=== PATIENT | female | born 1940 | race Caucasian/White ===

== ENCOUNTER → 2017-09-06 12:03 | Outpatient (CLI) | payer MEDICARE, OTHER, SELFPAY ==
--- NOTE | 2017-09-06 | CYSPIN_PTH ---
PATIENT: JOB RUGGIERO LOC: [facility] U#:[id number] AGE/SX: 84/F ROOM: RE09/06/[address]: Dr. Ernie Robles MD : 1940 BED: DIS: SPEC #: [id number] RECD: 09/06/17 11:11 STATUS: NITIN LESLEY #: [id number] NIA: 09/06/17 00:[address]: Ernie Robles DEPT: CYTOLOGY RECD BY: Rodger Gonzales Tissues: Urine Procedures: Pap Stain (control) Special Stain Group II Cytospin Fluid HEADER OPERATION: Not noted PRE-OP DIAGNOSIS: History of bladder CA TISSUE SUBMITTED: Urine for cytology DIAGNOSIS CYTOLOGY Urine for cytology (cytospin): Rare cluster of atypical urothelial cells present. See comment. AM:caroline 09/07/17 COMMENT Rare cluster of atypical urothelial cells are identified. The majority of the specimen consists of squamous epithelial cells. 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 CYTOLOGY STUDY Slides are reviewed. CYTOLOGY GROSS Received is 10 ml of gold cloudy fluid labeled with the patient's name and and designated per the requisition as urine. Submitted for cytology preparation. / 09/06/17 TC:? CPT: 77241
[2017-09-06 12:06] LABS: Cytology, Body Fluid / CSF SEE PATHOLOGY REPORT
== END ==
PROVIDERS: Visit Provider Urology
DX: Z85.51 Personal history of malignant neoplasm of bladder (principal)
CPT/HCPCS: 88108; 88313

== ENCOUNTER → 2018-04-19 09:51 | Outpatient (CLI) | payer MEDICARE, OTHER, SELFPAY ==
[2018-04-19 12:08] LABS: Absolute Lymphocyte Count 1.42 X10^3/ul (0.83-4.51); Absolute Neutrophil Count 4.5 X10^3/uL (2.0-7.7); Basophil# 0.04 X10^3/uL; Basophil% 0.6 % (0-1); Eosinophil# 0.31 X10^3/uL; Eosinophils% 4.5 % (0-5); Hematocrit 40.6 % (37-47); Hemoglobin 13.3 g/dl (12.0-15.0); Lymphocyte # 1.42 X10^3/ul (4.0); Lymphocyte % 20.8 % (19-41); Mean Corp Hgb Conc 32.8 g/gl (32-36); Mean Corpuscular Hgb 29.2 pg (27.0-32.0); Mean Platelet Vol. 10.8 fl (6.2-12.0); Monocyte# 0.56 X10^3/uL; Monocyte% 8.2 % (0-10); Neutrophil # 4.48 X10^3/uL (2.7-7.7); Neutrophil % 65.8 % (47-70); Platelet Count 350 K/mm3 (150-450); RBC Distribution Width CV 13.6 % (11.6-14.6); RBC Distribution Width SD 43.9 fl (35.1-43.9); Red Blood Count 4.56 M/mm3 (4.2-5.4); White Blood Count 6.8 K/mm3 (4.4-11.0)
[2018-04-19 12:14] LABS: POSITIVE COUNT NO; POSITIVE DIFFERENTIAL NO; POSITIVE MORPHOLOGY NO
[2018-04-19 12:18] LABS: ALB/GLOB Ratio 0.8 RATIO (0.9-2.4); AST(SGOT) 18 U/L (15-37); Alanine Aminotransfer ALT/SGPT 15 U/L (13-56); Albumin, Serum 3.6 g/dL (3.2-5.0); Alkaline Phosphatase 89 U/L (45-117); Anion Gap 9 (5-15); BUN 18 mg/dL (7-18); Calcium,Total 9.1 mg/dL (8.5-10.1); Chloride 105 mmol/L (98-107); Creatinine, Serum 1.06 mg/dL (0.55-1.02); EST Glomerular Filtration Rate 54 mL/min (>60); Est Glom Filt Rate - Afr Amer 65 mL/min (>60); Globulin 4.3 g/dL (2.2-4.2); Glucose 112 mg/dL (74-106); Potassium 3.7 mmol/L (3.5-5.1); Protein, Total 7.9 g/dL (6.4-8.2); Sodium Level 142 mmol/L (136-145); T4 Free Direct 0.92 ng/dL (0.76-1.46); Thyroid Stim Hormone (TSH) 3.64 uIU/mL (0.358-3.74)
== END ==
PROVIDERS: Family Provider Family Medicine; PCP Family Medicine; Visit Provider Family Medicine
DX: E11.9 Type 2 diabetes mellitus without complications (principal); E03.9 Hypothyroidism, unspecified; I10 Essential (primary) hypertension
CPT/HCPCS: 36415; 80053; 84439; 84443; 85025

== ENCOUNTER 2018-05-30 08:15 | Day surgery (SDC) | payer MEDICARE, OTHER, SELFPAY ==
[2018-05-30] VITALS (7 sets, daily range): BP systolic 120–142; BP diastolic 67–98; PULSE 89–101; RESP 16; TEMP 36.3–36.8; O2SAT 96–100; BMI 31.8
[2018-05-30 09:11] LABS: Bedside Glucose 110 mg/dL (70-110)
--- NOTE | 2018-05-30 09:30 | COLBX_PTH ---
PATIENT: JOB RUGGIERO LOC: [facility] U#:[id number] AGE/SX: 77/F ROOM: RE05/30/[address]: Dr. Parmjit Peoples MD : 1940 BED: DIS: 05/30/2018 SPEC #: [id number] RECD: 05/30/18 12:22 STATUS: NITIN LESLEY #: [id number] NIA: 05/30/18 09:[address]: Parmjit Peoples DEPT: SURGICAL PATHOLOGY RECD BY: Mulugeta Crenshaw ENTERED: 05/30/18 13:42 SP TYPE: COLON BX OTHR DR: Dr. Jason Morton MD Tissues: Ascending colon Procedures: Surgery Specimen Level IV HEADER OPERATION: Colonoscopy (MOD) PRE-OP DIAGNOSIS: Screening TISSUE SUBMITTED: Proximal ascending colon polyp biopsy MICROSCOPIC DIAGNOSIS Proximal ascending colon polyp, biopsy: Tubular adenoma. SJ:caroline 05/31/18 MICROSCOPIC DESCRIPTION Slides are reviewed. GROSS DESCRIPTION Received in fixative is one container labeled with the patient's name and designated proximal ascending polyp biopsy. The specimen consists of one irregular fragment of light bryant soft tissue that measures 0.3 x 0.3 x 0.1 cm. The specimen is totally submitted in one cassette. / SJ:caroline 05/30/18 TC:1 CPT: 65697
--- NOTE | 2018-05-30 10:09 | PCM.HP.STD ---
Problem List (1) Screening for intestinal cancer Status: Acute History of Present Illness Date of Admission: 05/30/18 The patient is a 77 year old F screening for intestinal cancer in the form of colonoscopy. She has no acute symptoms. No bright red blood per rectum or melena. No abdominal pain. No personal or family history of colon cancer or colon polyps. She otherwise enjoys good health. Past Medical History Allergies No Known Allergies Allergy (Verified 05/24/18 15:15) Home Medications: Ambulatory Orders Medication Instructions Recorded Amlodipine Besylate [Norvasc] 5 mg PO DAILY 05/24/18 Calcium Carb/Mag Ox/Zinc Sulf 1 each PO DAILY 05/24/18 [Ugisgdw-Pmafznmoa-Oine Tablet] Cyanocobalamin [Vitamin B12] 1,000 mcg PO DAILY@0800 05/24/18 Duloxetine Hcl [Cymbalta] 80 mg PO DAILY 05/24/18 Hydrochlorothiazide [Hctz] 25 mg PO DAILY 05/24/18 Levothyroxine Sodium 50 mcg PO DAILY 05/24/18 Oxybutynin [Ditropan] 5 mg PO DAILY 05/24/18 Vit C/E/Zn/Coppr/Lutein/Zeaxan 1 each PO BID 05/24/18 [Preservision Areds 2 Softgel] Smoking Status: Never smoker Tobacco Use: Non-smoker Review of Systems Constitutional: Denies: Anorexia HEENT: Denies: Difficulty Swallowing Cardiovascular: Denies: Chest Pain Respiratory: Denies: Cough Gastrointestinal: Denies: Abdominal Pain, Hematochezia, Melena Neurological: Denies: Balance problems Psychiatric: Denies: Anxiety Endocrine: Denies: Change in Body Habitus VTE Information - Inpt Only VTE Present on Admission: No Patient Problems: Active and Suspected Problems Screening for intestinal cancer (Acute) - Physical Exam General: Alert, Oriented x3, Cooperative, No apparent distress Oral: Moist Mucosa Neck: Supple Lungs: Clear to auscultation Cardiovascular: Regular rate, Regular Rhythm Abdomen: Bowel Sounds Present, Soft, Non Tender Extremities: No clubbing Vital Signs Temp Pulse Resp BP Pulse Ox 97.7 F L 101 H 16 120/88 H 96 05/30/18 08:31 05/30/18 08:31 05/30/18 08:31 05/30/18 08:31 05/30/18 08:31 Weight: 200 lb Body Mass Index (BMI) 31.8 POC Glucose 05/30/18 08:37 POC Glucose 110 Assessment/Plan All Active Problems Screening for intestinal cancer (Acute) I am recommending a screening colonoscopy. She is aware of the technique, benefits, risks and alternatives. She presents via our open Access program. We will proceed as noted. Parmjit Peoples M.D., F.A.C.S.
--- NOTE | 2018-05-30 10:45 | OP.ENDO_ITS ---
Patient Name: Radha Bermudez Procedure Date: 05/30/2018 10:05 AM Date of : 1940 Age: 77 Procedure: Colonoscopy Indications: Screening for colorectal malignant neoplasm Providers: Parmjit Peoples MD Referring MD: Parmjit Peoples MD Medicines: Midazolam 2.5 mg IV, Meperidine 75 mg IV Patient Profile: Last Colonoscopy: more than 10 years ago. Complications: No immediate complications. Procedure: Pre-Anesthesia Assessment: - Prior to the procedure, a History and Physical was performed, and patient medications and allergies were reviewed. The patient's tolerance of previous anesthesia was also reviewed. The risks and benefits of the procedure and the sedation options and risks were discussed with the patient. All questions were answered, and informed consent was obtained. Prior Anticoagulants: The patient has taken no previous anticoagulant or antiplatelet agents. ASA Grade Assessment: II - A patient with mild systemic disease. After reviewing the risks and benefits, the patient was deemed in satisfactory condition to undergo the procedure. After I obtained informed consent, the scope was passed under direct vision. Throughout the procedure, the patient's blood pressure, pulse, and oxygen saturations were monitored continuously. The pediatric colonoscope was introduced through the anus and advanced to the cecum, identified by appendiceal orifice and ileocecal valve. The colonoscopy was performed with moderate difficulty due to a tortuous colon. Successful completion of the procedure was aided by increasing the dose of sedation medication, changing the patient to a supine position and using manual pressure. The patient tolerated the procedure well. The quality of the bowel preparation was fair. The ileocecal valve was photographed. Moderate Sedation: Moderate (conscious) sedation was personally administered by the endoscopist. The following parameters were monitored: oxygen saturation, heart rate, blood pressure, and response to care. Total physician intraservice time was 15 minutes. Scope In: 10:19:22 AM Scope Withdrawal Time 0 hours 6 minutes 5 seconds Scope Out: 10:40:13 AM Total Procedure Duration Time 0 hours 20 minutes 51 seconds Findings: Hemorrhoids were found on perianal exam. Multiple diverticula were found in the sigmoid colon and descending colon. A 3 mm polyp was found in the proximal ascending colon. The polyp was sessile. The polyp was removed with a cold biopsy forceps. Resection and retrieval were complete. Impression: - Preparation of the colon was fair. - Hemorrhoids found on perianal exam. - Diverticulosis in the sigmoid colon and in the descending colon. - One 3 mm polyp in the proximal ascending colon, removed with a cold biopsy forceps. Resected and retrieved. Recommendation: - Repeat colonoscopy in 5 years for surveillance. - Telephone my office for pathology results in 1 week. - Resume previous diet. - Continue present medications. Procedure Code(s): --- Professional --- 04559, Colonoscopy, flexible; with biopsy, single or multiple 54008, 59, Moderate sedation services provided by the same physician or other qualified health health care recruiter performing the diagnostic or therapeutic service that the sedation supports, requiring the presence of an independent trained observer to assist in the monitoring of the patient's level of consciousness and physiological status; initial 15 minutes of intraservice time, patient age 5 years or older Diagnosis Code(s): --- Professional --- Z12.11, Encounter for screening for malignant neoplasm of colon K64.9, Unspecified hemorrhoids D12.2, Benign neoplasm of ascending colon K57.30, Diverticulosis of large intestine without perforation or abscess without bleeding CPT copyright 2017 [employer]. All rights reserved. The codes documented in this report are preliminary and upon explosives worker review may be revised to meet current compliance requirements. Parmjit Peoples MD 05/30/2018 10:45:00 AM This report has been signed electronically. Number of Addenda: 0 Note Initiated On: 05/30/2018 10:05 AM
--- OUTSIDE RECORDS SUMMARY | 2018-07-11 20:41 | XMS RPT_ITS ---
:1940 Author Organization OHIP Care Team Providers Name Role Phone Ernie Robles Attending Unavailable Ernie Robles Referring Unavailable Primay Care Physicia, No Primary Care Unavailable Jason Morton Attending Unavailable Jason Morton Primary Care Unavailable Nurse, Standard Attending Unavailable Jason Morton Referring Unavailable Parmjit Peoples Attending Unavailable Jason Morton Primary Care Unavailable Parmjit Peoples Referring Unavailable Jason Morton Attending Unavailable Jason Morton Primary Care Unavailable Parmjit Peoples Attending Unavailable Parmjit Peoples Referring Unavailable PROBLEMS PROBLEMS DATE TYPE CONDITION / CODE ATTENDING STATUS SOURCE 06/12/2018 Unknown Z12.11 - Encounter Parmjit Peoples for screening for Community malignant neoplasm Hospital of colon / Repository Z12.11(ICD-10) 06/12/2018 Unknown 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 / Hospital D12.2(ICD-10) Repository 06/12/2018 Unknown K64.9 - Unspecified Parmjit Peoples hemorrhoids / Community K64.9(ICD-10) Hospital Repository 06/12/2018 Unknown K57.30 - Parmjit Peoples Active [place] Diverticulosis of [facility] large intestine Hospital without perforation Repository or abscess without bleeding / K57.30(ICD-10) 04/19/2018 Unknown E11.9 - Type 2 Jason Morton diabetes mellitus Community without Hospital complications / Repository E11.9(ICD-10) 04/19/2018 Unknown I10 - Essential Jason Morton (primary) Community hypertension / Hospital I10(ICD-10) Repository 04/19/2018 Unknown E03.9 - Jason Morton Active Joce Hypothyroidism, [facility] unspecified / Hospital E03.9(ICD-10) Repository PROCEDURES PROCEDURES No Procedure Records FoundRESULTS RESULTS SCREENING MAMM (CAD), Observed: 05/31/2018 Status: F Source: [place] BILAT 8:18 AM [facility] HOSPITAL REPOSITORY [facility] Imaging Services [address] [place] [address] SCREENING MAMM (CAD), BILAT MR#: [id number] Acct: [id number] Name: RADHA BERMUDEZ Rep #: [id number] : 1940 F 77 From: Yogesh Terrazas MD PCP: Jason Morton MD Status: REG CLI Study: SCREENING MAMM (CAD), BILAT Date of Exam: 05/31/18 Exam# [id number] Ordering Dr: Jason Morton MD MAMMOGRAPHY - BILATERAL SCREENING REASON FOR EXAM: Female, 77 years old. Routine annual screening examination. PERTINENT HISTORY: Non-contributory. History of bilateral excisional breast biopsies. TECHNIQUE: Digital bilateral breast dianne (3D mammographic acquisition) in the CC and MLO projections. 2-D mediolateral oblique (MLO) and craniocaudad (CC) views of both breasts were obtained. CAD: Full Field Digital Mammography with Computer Added Detection was performed. COMPARISON: Comparison is made with prior examination dated April 04, 2017 and October 28, 2015. FINDINGS: Breast Composition: The breasts are almost entirely fatty. There are no dominant masses or suspicious calcifications. Stable small benign-appearing bilateral axillary lymph nodes. No other significant abnormalities are identified. There has been no significant change since the prior study. BI/SCREENING MAMM (CAD), BILAT IMPRESSION: Stable bilateral screening mammogram. Yearly follow-up mammogram recommended. (A) ASSESSMENT CATEGORY: BIRADS Category 2: Benign. A letter regarding these results will be sent to the patient by the facility within 30 days. Approximately 10% of breast cancers are not detected by mammography. A normal mammogram should not delay biopsy of a clinically suspicious abnormality. [id number] Electronically Signed: Yogesh Terrazas MD at 10:18 EST Tel [phone], Service support , CC: Jason Morton MD Project Admin: Signed HISTORY AND PHYSICAL Observed: 05/30/2018 Status: F Source: [place] EXAM 4:28 PM [facility] REPOSITORY [facility] Medical Records Department [address] [place] [address] History and Physical 05/30/18 1009 MR#: [id number] Acct: [id number] Name: RADHA BERMUDEZ Rep #: [id number] : 1940 77 From: Parmjit Peoples MD PCP: Jason Morton MD Status: [facility] Y Location: EN Problem List (1) Screening for intestinal cancer Status: Acute History of Present Illness Date of Admission: 05/30/18 The patient is a 77 year old F screening for intestinal cancer in the form of colonoscopy. She has no acute symptoms. No bright red blood per rectum or melena. No abdominal pain. No personal or family history of colon cancer or colon polyps. She otherwise enjoys good health. Past Medical History Allergies No Known Allergies Allergy (Verified 05/24/18 15:15) Home Medications: Ambulatory Orders Medication Instructions Recorded Amlodipine Besylate [Norvasc] 5 mg PO DAILY 05/24/18 Calcium Carb/Mag Ox/Zinc Sulf 1 each PO DAILY 05/24/18 Smoking Status: Never smoker Tobacco Use: Non-smoker Review of Systems Constitutional: Denies: Anorexia HEENT: Denies: Difficulty Swallowing Cardiovascular: Denies: Chest Pain Respiratory: Denies: Cough Gastrointestinal: Denies: Abdominal Pain, Hematochezia, Melena Neurological: Denies: Balance problems Psychiatric: Denies: Anxiety Endocrine: Denies: Change in Body Habitus VTE Information - Inpt Only VTE Present on Admission: No Patient Problems: Active and Suspected Problems Screening for intestinal cancer (Acute) - Physical Exam General: Alert, Oriented x3, Cooperative, No apparent distress Oral: Moist Mucosa Neck: Supple Lungs: Clear to auscultation Cardiovascular: Regular rate, Regular Rhythm Abdomen: Bowel Sounds Present, Soft, Non Tender Extremities: No clubbing Vital Signs Temp Pulse Resp BP Pulse Ox 97.7 F L 101 H 16 120/88 H 96 05/30/18 08:31 05/30/18 08:31 05/30/18 08:31 05/30/18 08:31 05/30/18 08:31 Weight: 200 lb Body Mass Index (BMI) 31.8 POC Glucose POC Glucose 110 Assessment/Plan All Active Problems Screening for intestinal cancer (Acute) I am recommending a screening colonoscopy. She is aware of the technique, benefits, risks and alternatives. She presents via our open Access program. We will proceed as noted. Parmjit Peoples M.D., F.A.C.S. 05/30/18 1628 <Electronically signed by Parmjit Peoples MD> Date Parmjit Peoples MD Cosigner Signature: Date (if applicable) CC: Parmjit Peoples MD; Jason Morton MD Signed OPERATIVE REPORT - Observed: 05/30/2018 Status: F Source: [place] ENDOSCOPY 10:45 AM [facility] REPOSITORY [facility] Medical Records Department [address] [place] [address] Operative Report - Endoscopy MR#: [id number] Acct: [id number] Name: RADHA BERMUDEZ Rep #: [id number] : 1940 77 From: Parmjit Peoples MD PCP: Jason Morton MD Status: REG [facility] Patient Name: Radha Bermudez Procedure Date: 05/30/2018 10:05 AM Date of : 1940 Age: 77 Procedure: Colonoscopy Indications: Screening for colorectal malignant neoplasm Providers: Parmjit Peoples MD Referring MD: Parmjit Peoples MD Medicines: Midazolam 2.5 mg IV, Meperidine 75 mg IV Patient Profile: Last Colonoscopy: more than 10 years ago. Complications: No immediate complications. Procedure: Pre-Anesthesia Assessment: - Prior to the procedure, a History and Physical was performed, and patient medications and allergies were reviewed. The patient's tolerance of previous anesthesia was also reviewed. The risks and benefits of the procedure and the sedation options and risks were discussed with the patient. All questions were answered, and informed consent was obtained. Prior Anticoagulants: The patient has taken no previous anticoagulant or antiplatelet agents. ASA Grade Assessment: II - A patient with mild systemic disease. After reviewing the risks and benefits, the patient was deemed in satisfactory condition to undergo the procedure. After I obtained informed consent, the scope was passed under direct vision. Throughout the procedure, the patient's blood pressure, pulse, and oxygen saturations were monitored continuously. The pediatric colonoscope was introduced through the anus and advanced to the cecum, identified by appendiceal orifice and ileocecal valve. The colonoscopy was performed with moderate difficulty due to a tortuous colon. Successful completion of the procedure was aided by increasing the dose of sedation medication, changing the patient to a supine position and using manual pressure. The patient tolerated the procedure well. The quality of the bowel preparation was fair. The ileocecal valve was photographed. Moderate Sedation: Moderate (conscious) sedation was personally administered by the endoscopist. The following parameters were monitored: oxygen saturation, heart rate, blood pressure, and response to care. Total physician intraservice time was 15 minutes. Scope In: 10:19:22 AM Scope Withdrawal Time 0 hours 6 minutes 5 seconds Scope Out: 10:40:13 AM Total Procedure Duration Time 0 hours 20 minutes 51 seconds Findings: Hemorrhoids were found on perianal exam. Multiple diverticula were found in the sigmoid colon and descending colon. A 3 mm polyp was found in the proximal ascending colon. The polyp was sessile. The polyp was removed with a cold biopsy forceps. Resection and retrieval were complete. Impression: - Preparation of the colon was fair. - Hemorrhoids found on perianal exam. - Diverticulosis in the sigmoid colon and in the descending colon. - One 3 mm polyp in the proximal ascending colon, removed with a cold biopsy forceps. Resected and retrieved. Recommendation: - Repeat colonoscopy in 5 years for surveillance. - Telephone my office for pathology results in 1 week. - Resume previous diet. - Continue present medications. Procedure Code(s): --- Professional --- 01997, Colonoscopy, flexible; with biopsy, single or multiple 79479, 59, Moderate sedation services provided by the same physician or other qualified health daycare manager performing the diagnostic or therapeutic service that the sedation supports, requiring the presence of an independent trained observer to assist in the monitoring of the patient's level of consciousness and physiological status; initial 15 minutes of intraservice time, patient age 5 years or older Diagnosis Code(s): --- Professional --- Z12.11, Encounter for screening for malignant neoplasm of colon K64.9, Unspecified hemorrhoids D12.2, Benign neoplasm of ascending colon K57.30, Diverticulosis of large intestine without perforation or abscess without bleeding CPT copyright 2017 [employer]. All rights reserved. The codes documented in this report are preliminary and upon shoe repair supervisor review may be revised to meet current compliance requirements. Parmjit Peoples MD 05/30/2018 10:45:00 AM This report has been signed electronically. Number of Addenda: 0 Note Initiated On: 05/30/2018 10:05 AM 05/30/18 1045 Date Parmjit Peoples MD Cosigner Signature: Date (if indicated) CC: Parmjit Peoples MD; Jason Morton MD Date Dictated: 05/30/18 1005 Date Transcribed: Project Admin: KIM Signed COLON BIOPSY (CHOOSE Observed: 05/30/2018 Status: F Source: [place] SITE) 9:30 AM [facility] REPOSITORY Patient: RADHA BERMUDEZ : 1940 (77/F) Acct Num: [id number] Phys: Parmjit Peoples MD Unit Num: [id number] Loc: EN Specimen: [id number] Received: 05/30/18 - 1222 Spec Type: COLON BX TISSUES 1 TISSUES: Ascending colon GROSS DESCRIPTION Received in fixative is one container labeled with the patient's name and designated proximal ascending polyp biopsy. The specimen consists of one irregular fragment of light bryant soft tissue that measures 0.3 x 0.3 x 0.1 cm. The specimen is totally submitted in one cassette. / SJ:caroline 05/30/18 TC:1 CPT: 06415 HEADER OPERATION: Colonoscopy (MOD) PRE-OP DIAGNOSIS: Screening TISSUE SUBMITTED: Proximal ascending colon polyp biopsy MICROSCOPIC DESCRIPTION Slides are reviewed. MICROSCOPIC DIAGNOSIS Proximal ascending colon polyp, biopsy: Tubular adenoma. SJ:caroline 05/31/18 Signed Max Doherty 05/31/18 <signature on file> Performed By: #### PCOLBX #### [facility] [address] [facility]. [place], [place], [address] BEDSIDE GLUCOSE Collected: 05/30/2018 Status: F Source: [place] 8:37 AM [facility] REPOSITORY TYPE CODE TESTS RESULT OUT OF RANGE REFERENCE UNITS LAB L501.080 70-110 mg/dL Normal BEDSIDE GLU 110 Result Comment: MANAGEMENT OF PATIENT CARE PER NURSING PROTOCOL Performed By: #### L501.080 #### [facility] Point of Care [address] [place] [address]. [place] [address] CBC W/DIFF, AUTOMATED Collected: 04/19/2018 Status: F Source: [place] 9:53 AM [facility] REPOSITORY TYPE CODE TESTS RESULT OUT OF RANGE REFERENCE UNITS LAB L100.1000 4.4-11.0 K/mm3 Normal WBC 6.8 LAB L100.1200 4.2-5.4 M/mm3 Normal RBC 4.56 LAB L100.1300 12.0-15.0 g/dl Normal HGB 13.3 LAB L100.1400 37-47 % Normal HCT 40.6 LAB L100.1500 81-99 fL Normal MCV 89.0 LAB L100.1600 27.0-32.0 pg Normal MCH 29.2 LAB L100.1700 32-36 g/gl Normal MCHC 32.8 LAB L100.1810 11.6-14.6 % Normal RDW CV 13.6 LAB L100.1820 35.1-43.9 fl Normal RDW SD 43.9 LAB L100.1900 150-450 K/mm3 Normal PLT 350 LAB L100.2000 6.2-12.0 fl Normal MPV 10.8 LAB L100.2100 47-70 % Normal NEUT% 65.8 LAB L100.2200 19-41 % Normal LY% 20.8 LAB L100.2300 0-10 % Normal MONO% 8.2 LAB L100.2400 0-5 % Normal EO% 4.5 LAB L100.2500 0-1 % Normal BASO% 0.6 LAB L100.2550 0.0-0.9 % Normal IM GRAN % 0.100 Result Comment: IG% - Immature Granulocytes (promyelocytes, myelocytes and metamyelocytes) > 1% indicates that a LEFT SHIFT is Present. LAB L100.2620 2.0-7.7 X10 3/uL Normal Absolute Neut 4.5 LAB L100.2720 0.83-4.51 X10 3/ul Normal Absolute Lymph 1.42 Performed By: #### L100.0100 #### [facility] [address] [place], [place], [address] COMPREHENSIVE METABOLIC Collected: 04/19/2018 Status: F Source: [facility] 9:53 AM [facility] REPOSITORY TYPE CODE TESTS RESULT OUT OF RANGE REFERENCE UNITS LAB L501.0100 74-106 mg/dL High GLU 112 Result Comment: Fasting Glucose result from 100 to 125 mg/dL suggests IMPAIRED HOMEOSTASIS per A.D.A. criteria. Please note revised GLUCOSE reference range effective 2017. LAB L501.1000 7-18 mg/dL Normal BUN 18 LAB L501.1100 0.55-1.02 mg/dL High CREAT,SERUM 1.06 Result Comment: The validity of the calculated GFR AND GFRAA in patients over 70 years has not been determined. Clinical correlation is essential. LAB L501.1110 >60 mL/min Low EST GFR 54 Result Comment: Non- GFR Calc LAB L501.1115 >60 mL/min Normal EST GFR - AA 65 Result Comment: GFR Calc LAB L501.1300 10-20 RATIO Normal BUN/CRE 17.0 LAB L501.1500 6.4-8.2 g/dL T Normal PROT 7.9 LAB L501.1800 3.2-5.0 g/dL Normal ALB 3.6 LAB L501.1950 2.2-4.2 g/dL High GLOB 4.3 LAB L501.2000 0.9-2.4 RATIO Low A/G 0.8 LAB L501.2200 8.5-10.1 mg/dL CA Normal 9.1 LAB L501.4100 15-37 U/L Normal AST 18 LAB L501.4305 45-117 U/L Normal ALK P 89 LAB L501.4405 13-56 U/L Normal ALT 15 LAB L501.4600 0.20-1.00 mg/dL T Normal BILI 0.50 LAB L501.5300 136-145 mmol/L NA Normal 142 LAB L501.5600 3.5-5.1 mmol/L K Normal 3.7 LAB L501.5900 98-107 mmol/L CL Normal 105 LAB L501.6100 21.0-32.0 mmol/L Normal CO2 28.0 LAB L501.6200 5-15 Normal GAP 9 Performed By: #### L500.4050, L501.9520, L506.0400 #### [facility] [address] [place], [address] THYROID STIM HORMONE Collected: 04/19/2018 Status: F Source: [place] (TSH) 9:53 AM [facility] REPOSITORY TYPE CODE TESTS RESULT OUT OF RANGE REFERENCE UNITS LAB L501.9520 0.358-3.74 uIU/mL Normal TSH 3.64 Performed By: #### L500.4050, L501.9520, L506.0400 #### [facility] [address] [place], [address] T4 FREE DIRECT Collected: 04/19/2018 Status: F Source: J[place] 9:53 AM [facility] REPOSITORY TYPE CODE TESTS RESULT OUT OF RANGE REFERENCE UNITS LAB L506.0400 0.76-1.46 ng/dL Normal T4 FREE 0.92 DIRECT Performed By: #### L500.4050, L501.9520, L506.0400 #### [facility] [address] [place], [address] CYTOLOGY, BODY FLUID / Collected: 09/06/2017 Status: F Source: [place] CSF 11:11 AM [facility] REPOSITORY Order Comment: Specimen Source: URINE TYPE CODE TESTS RESULT OUT OF RANGE REFERENCE UNITS LAB L350.1000 SEE Normal PATHOLOGY CYTOLOGY,BF REPORT /CSF Result Comment: Specimen submitted to Anatomical Pathology Department for testing. Performed By: #### L350.1000 #### [facility] [address] [place], [address] CYTOSPIN ON FLUID Observed: 09/06/2017 Status: F Source: J[place] 12:00 AM [facility] REPOSITORY Patient: RADHA BERMUDEZ : 1940 (76/F) Acct Num: [id number] Phys: Margaret SANDOVAL,Larry Unit Num: [id number] Loc: LABSPEC Specimen: [id number] Received: 09/06/17 - 1111 Spec Type: CYSPIN FL TISSUES TISSUES: Urine COMMENT Rare cluster of atypical urothelial cells are identified. The majority of the specimen consists of squamous epithelial cells. 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 CYTOLOGY GROSS Received is 10 ml of gold cloudy fluid labeled with the patient's name and and designated per the requisition as urine. Submitted for cytology preparation. / 09/06/17 TC:? CPT: 62923 CYTOLOGY STUDY Slides are reviewed. DIAGNOSIS CYTOLOGY Urine for cytology (cytospin): Rare cluster of atypical urothelial cells present. See comment. AM:caroline 09/07/17 HEADER OPERATION: Not noted PRE-OP DIAGNOSIS: History of bladder CA TISSUE SUBMITTED: Urine for cytology Signed Vick Quinteroih 09/07/17 <signature on file> Performed By: #### PCYSPIN #### [facility] [address] [place], [address] ALLERGIES ALLERGIES DATE TYPE / CODE NAME / CODE REACTION SEVERITY SOURCE 05/24/2018 Drug No Known Unknown [facility] Allergy/4160 Allergies/F00 Hospital 07302(SNOMED 8876894(RXNOR Repository CT) M) ENCOUNTERS ENCOUNTERS ADMIT/DISCHARGE ACCOUNT ADMITTING ENCOUNTER LOCATION SOURCE NUMBER CLASS 05/31/2018 [id number] Ambulatory Joce [place] [address] [facility] ing:OPBI Repository 05/30/2018/ [id number] Ambulatory [place] Joce [address] [facility] ing:ENRoom: Repository AC15 05/30/2018/ [id number] Ambulatory BMSBuilding:B [place] 8 5 MS.[facility] Repository 04/21/2018/ [id number] Ambulatory BMSBuilding:B [place] 8 1 MS.[facility]ly [facility] Repository 04/19/2018 [id number] Ambulatory Joce [place] [address] [facility] ing:BFHLAB Repository 09/06/2017 [id number] Ambulatory Joce Joce [address] [facility] ing:LABSPEC Repository PAYERS PAYERS ENCOUNTER GUARANTOR PAYER SUBSCRIBER SOURCE 05/31/2018 RADHA [place] Primary RADHA [id number] Insurance:MEDICARE KEENERDOB: [facility] [place] PART A BPolicy Number: [id number]-[facility] [id number] Repository 66695Ttt: ([phone]) Date:2018-04-20 [phone] () 05/31/2018 Secondary RADHA [place] Insurance:HUMANA KEENERDOB: Community COMMERCIALPolicy [id number] Hospital Number: Repository [id number] Date:[id number] [address] [place] [id number]: 05/31/2018 Tertiary NOT GIVENUNK [place] Insurance:SELF PAY [facility]: Effective Repository Date:2018-04-20 05/30/2018 RADHA J Primary RADHA J [place] [id number] Insurance:MEDICARE KEENERDOB: Community [place] PART A BPolicy [place]: [id number] [id number] Repository [address]Svx: ([phone]) Date:2018-04-21 [phone] () 05/30/2018 Secondary RADHA J [place] Insurance:HUMANA KEENERDOB: Community COMMERCIALPolicy [id number] Hospital Number: Repository [id number] Date:2125-79-03ZR [address] [place] [phone]: 05/30/2018 Tertiary NOT GIVENUNK [place] Insurance:SELF PAY [facility] Number: Effective Repository Date:2018-04-21 05/30/2018 RADHA J Primary RADHA J [place] [id number] Insurance:MEDICARE KEENERDOB: Community [place] PART A BPolicy [place]: [id number] [id number] Repository [address]Nia: ([phone]) Date:2018-04-21 [phone] () 05/30/2018 Secondary RADHA J [place] Insurance:HUMANA KEENERDOB: Community COMMERCIALPolicy [id number] Hospital Number: Repository [id number] Date:4764-97-73FT [address] [place] [address]YK: 05/30/2018 Tertiary NOT GIVENUNK [place] Insurance:SELF PAY [facility] Hospital Number: Effective Repository Date:2018-05-30 04/21/2018 RADHA J Primary RADHA J [place] [id number] Insurance:MEDICARE KEENERDOB: Community [place] PART A BPolicy Number: [id number], [place] [id number] Repository [address]Dif: ([phone]) Date:2018-04-21 [phone] () 04/21/2018 Secondary RADHA J [place] Insurance:HUMANA KEENERDOB: Community COMMERCIALPolicy [id number] Hospital Number: Repository [id number] Date:[id number] [address]BJ: 04/21/2018 Tertiary NOT GIVENUNK [place] Insurance:SELF PAY [facility] Number: Effective Repository Date:2018-04-21 04/19/2018 RADHA J Primary RADHA J [place] [id number] Insurance:MEDICARE KEENERDOB: Community [place] PART A BPolicy Number: [id number], [place] [id number] Repository [address]Teg: ([phone]) Date:2018-04-19 [phone] () 04/19/2018 Secondary RADHA J [place] Insurance:HUMANA KEENERDOB: Community COMMERCIALPolicy [id number] Hospital Number: Repository [id number] Date:[id number] [address]LT: 04/19/2018 Tertiary NOT GIVENUNK [place] Insurance:SELF PAY [facility] Hospital Number: Effective Repository Date:2018-04-19 09/06/2017 Tobi Medrano Primary RADHA J [place] [id number] Insurance:MEDICARE KEENERDOB: Community [place] PART A BPolicy [place]: [id number] [id number] Repository [address]Opq: ([phone]) Date:2017-09-06 [phone] () 09/06/2017 Secondary RADHA J [place] Insurance:HUMANA KEENERDOB: Community COMMERCIALPolicy [id number] Hospital Number: Repository [id number] Date:[id number] [address]ED: 09/06/2017 Tertiary NOT GIVENUNK [place] Insurance:SELF PAY [facility] Effective Repository Date:2017-09-06
== END 2018-05-30 11:27 | disposition home or self-care (01) ==
LOC: EN 08:16 → AC 08:18
PROVIDERS: Family Provider Family Medicine; PCP Family Medicine; Referring Provider Surgery; Visit Provider Surgery
PROC: 0DJD8ZZ Inspection of Lower Intestinal Tract, Via Natural or Artificial Opening Endoscopic (ICD-10-PCS; CPT 45378; principal; 2018-05-30 09:25)
DX: Z12.11 Encounter for screening for malignant neoplasm of colon (principal); D12.2 Benign neoplasm of ascending colon; K57.30 Diverticulosis of large intestine without perforation or abscess without bleeding; K64.9 Unspecified hemorrhoids; K56.2 Volvulus; Z79.899 Other long term (current) drug therapy
CPT/HCPCS: 45380; 82962; 88305; 99152; 99153; J7120

== ENCOUNTER → 2018-05-31 08:14 | Outpatient (CLI) | payer MEDICARE, OTHER, SELFPAY ==
[2018-05-30 08:31] VITALS: BMI 31.8
--- NOTE | 2018-05-31 08:18 | BI_ITS ---
MAMMOGRAPHY - BILATERAL SCREENING REASON FOR EXAM: Female, 77 years old. Routine annual screening examination. PERTINENT HISTORY: Non-contributory. History of bilateral excisional breast biopsies. TECHNIQUE: Digital bilateral breast dianne (3D mammographic acquisition) in the CC and MLO projections. 2-D mediolateral oblique (MLO) and craniocaudad (CC) views of both breasts were obtained. CAD: Full Field Digital Mammography with Computer Added Detection was performed. COMPARISON: Comparison is made with prior examination dated April 04, 2017 and October 28, 2015. FINDINGS: Breast Composition: The breasts are almost entirely fatty. There are no dominant masses or suspicious calcifications. Stable small benign-appearing bilateral axillary lymph nodes. No other significant abnormalities are identified. There has been no significant change since the prior study. BI/SCREENING MAMM (CAD), BILAT IMPRESSION: Stable bilateral screening mammogram. Yearly follow-up mammogram recommended. (A) ASSESSMENT CATEGORY: BIRADS Category 2: Benign. A letter regarding these results will be sent to the patient by the facility within 30 days. Approximately 10% of breast cancers are not detected by mammography. A normal mammogram should not delay biopsy of a clinically suspicious abnormality. [id number] Electronically Signed: Yogseh Terrazas MD at 10:18 EST Tel [phone], Service support ,
--- OUTSIDE RECORDS SUMMARY | 2018-07-26 13:20 | XMS RPT_ITS ---
[...] - Parmjit Peoples Active Joce Diverticulosis of [facility] large intestine Hospital without perforation Repository or abscess without bleeding / K57.30(ICD-10) 04/19/2018 Unknown E11.9 - Type 2 Jason Morton diabetes mellitus Community without Hospital complications / Repository E11.9(ICD-10) 04/19/2018 Unknown I10 - Essential Jason Morton (primary) Community hypertension / Hospital I10(ICD-10) Repository 04/19/2018 Unknown E03.9 - Jason Morton Active Joce Hypothyroidism, [facility] unspecified / Hospital E03.9(ICD-10) Repository PROCEDURES PROCEDURES No Procedure Records FoundRESULTS RESULTS SCREENING MAMM (CAD), Observed: 05/31/2018 Status: F Source: JOCE BILAT 8:18 AM [facility] REPOSITORY [facility] Imaging Services [address] [place] [address] SCREENING MAMM (CAD), BILAT MR#: [id number] Acct: [id number] Name: RADHA BERMUDEZ Rep #: [id number] : 1940 F 77 From: Yogesh Terrazas MD PCP: Jason Morton MD Status: REG CLI Study: SCREENING MAMM (CAD), BILAT Date of Exam: 05/31/18 Exam# [id number] Ordering Dr: Jason Morton MD MAMMOGRAPHY - [...] delay biopsy of a clinically suspicious abnormality. [id number] Electronically Signed: Yogesh Terrazas MD at 10:18 EST Tel [phone], Service support , CC: Jason Morton MD Family Counselor: Signed HISTORY AND PHYSICAL Observed: 05/30/2018 Status: F Source: [facility] 4:28 PM [facility] REPOSITORY [facility] Medical Records Department [address] [place] [address] History and Physical 05/30/18 1009 MR#: [id number] Acct: [id number] Name: RADHA BERMUDEZ Rep #: [id number] : 1940 77 From: Parmjit Peoples MD PCP: Jason Morton MD Status: [facility] Y Location: EN Problem List (1) Screening [...] REPORT - Observed: 05/30/2018 Status: F Source: [facility] 10:45 AM [facility] REPOSITORY [facility] Medical Records Department [address] [place] [address] Operative Report - Endoscopy MR#: [id number] Acct: [id number] Name: RADHA BERMUDEZ Rep #: [id number] : 1940 77 From: Parmjit Peoples MD PCP: Jason Morton MD Status: REG [facility] Patient Name: Radha Bermudez Procedure Date: 05/30/2018 [...] present medications. Procedure Code(s): --- Professional --- 04766, Colonoscopy, flexible; with biopsy, single or multiple 81231, 59, Moderate sedation services provided by the same physician or other qualified health care partner performing the diagnostic or therapeutic service that [...] or abscess without bleeding CPT copyright 2017 [employer]. All rights reserved. The codes documented in this report are preliminary and upon metal hanging helper review may be revised to meet current compliance requirements. Parmjit Peoples MD 05/30/2018 10:45:00 AM This report has been signed electronically. Number of Addenda: 0 Note Initiated On: 05/30/2018 10:05 AM 05/30/18 1045 Date Parmjit Peoples MD Cosigner Signature: Date (if indicated) CC: Parmjit Peoples MD; Jason Morton MD Date Dictated: 05/30/18 1005 Date Transcribed: Family Counselor: KIM Signed COLON BIOPSY (CHOOSE Observed: 05/30/2018 Status: F Source: [facility] SITE) 9:30 AM [facility] REPOSITORY Patient: RADHA BERMUDEZ : 1940 (77/F) Acct Num: [id number] Phys: Parmjit Peoples MD Unit Num: [id number] Loc: EN Specimen: [id number] Received: 05/30/18 - 1222 Spec Type: COLON [...] one cassette. / SJ:caroline 05/30/18 TC:1 CPT: 01117 HEADER OPERATION: Colonoscopy (MOD) PRE-OP DIAGNOSIS: Screening TISSUE SUBMITTED: Proximal ascending colon polyp biopsy MICROSCOPIC DESCRIPTION Slides are reviewed. MICROSCOPIC DIAGNOSIS Proximal ascending colon polyp, biopsy: Tubular adenoma. SJ:caroline 05/31/18 Signed Max Doherty 05/31/18 <signature on file> Performed By: #### PCOLBX #### [facility] [address] [facility]. [place], [place], [address] BEDSIDE GLUCOSE Collected: 05/30/2018 Status: F Source: [facility] 8:37 AM [facility] REPOSITORY TYPE CODE TESTS RESULT OUT OF RANGE REFERENCE UNITS LAB L501.080 70-110 mg/dL Normal BEDSIDE GLU 110 Result Comment: MANAGEMENT OF PATIENT CARE PER NURSING PROTOCOL Performed By: #### L501.080 #### [facility] Point of Care [address] [place] [address]. [place] [address] CBC W/DIFF, AUTOMATED Collected: 04/19/2018 Status: F Source: [facility] 9:53 AM [facility] REPOSITORY TYPE CODE TESTS RESULT OUT OF [...] Lymph 1.42 Performed By: #### L100.0100 #### [facility] [address] [place], [place], [address] COMPREHENSIVE METABOLIC Collected: 04/19/2018 Status: F Source: [facility] 9:53 AM [facility] REPOSITORY TYPE CODE TESTS RESULT OUT OF [...] Performed By: #### L500.4050, L501.9520, L506.0400 #### [facility] [address] [place], [address] THYROID STIM HORMONE Collected: 04/19/2018 Status: F Source: J[facility]E (TSH) 9:53 AM [facility] REPOSITORY TYPE CODE TESTS RESULT OUT OF RANGE REFERENCE UNITS LAB L501.9520 0.358-3.74 uIU/mL Normal TSH 3.64 Performed By: #### L500.4050, L501.9520, L506.0400 #### [facility] [address] [place], [address] T4 FREE DIRECT Collected: 04/19/2018 Status: F Source: [facility] 9:53 AM [facility] REPOSITORY TYPE CODE TESTS RESULT OUT OF RANGE REFERENCE UNITS LAB L506.0400 0.76-1.46 ng/dL Normal T4 FREE 0.92 DIRECT Performed By: #### L500.4050, L501.9520, L506.0400 #### [facility] [address] [place], [address] CYTOLOGY, BODY FLUID / Collected: 09/06/2017 Status: F Source: [facility] CSF 11:11 AM [facility] REPOSITORY Order Comment: Specimen Source: URINE TYPE CODE TESTS RESULT OUT OF RANGE REFERENCE UNITS LAB L350.1000 SEE Normal PATHOLOGY CYTOLOGY,BF REPORT /CSF Result Comment: Specimen submitted to Anatomical Pathology Department for testing. Performed By: #### L350.1000 #### [facility] [address] [place], [address] CYTOSPIN ON FLUID Observed: 09/06/2017 Status: F Source: J[facility] 12:00 AM [facility] REPOSITORY Patient: RADHA BERMUDEZ : 1940 (76/F) Acct Num: [id number] Phys: Margaret SANDOVAL,Larry Unit Num: [id number] Loc: LABSPEC Specimen: [id number] Received: 09/06/17 - 1111 Spec Type: CYSPIN FL TISSUES TISSUES: Urine COMMENT Rare cluster of atypical urothelial cells are identified. The majority of the specimen consists of squamous epithelial cells. 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 CYTOLOGY GROSS Received is 10 ml of gold cloudy fluid labeled with the patient's name and and designated per the requisition as urine. Submitted for cytology preparation. / 09/06/17 TC:? CPT: 61772 CYTOLOGY STUDY Slides are reviewed. DIAGNOSIS CYTOLOGY Urine for cytology (cytospin): Rare cluster of atypical urothelial cells present. See comment. AM:caroline 09/07/17 HEADER OPERATION: Not noted PRE-OP DIAGNOSIS: History of bladder CA TISSUE SUBMITTED: Urine for cytology Signed Vick Quinteroih 09/07/17 <signature on file> Performed By: #### PCYSPIN #### [facility] [address] [place], [address] ALLERGIES ALLERGIES DATE TYPE / CODE NAME / CODE REACTION SEVERITY SOURCE 05/24/2018 Drug No Known Unknown [facility] Allergy/4160 Allergies/F00 Hospital 42429(SNOMED 5863745(RXNOR Repository CT) M) ENCOUNTERS ENCOUNTERS ADMIT/DISCHARGE ACCOUNT ADMITTING ENCOUNTER LOCATION SOURCE NUMBER CLASS 05/31/2018 [id number] Ambulatory Joce [place] 8 [facility] ing:OPBI Repository 05/30/2018/ [id number] Ambulatory Pisek Joce 8 7 [facility] ing:ENRoom: Repository AC15 05/30/2018/ [id number] Ambulatory BMSBuilding:B Pisek 8 5 [facility] Repository 04/21/2018/ [id number] Ambulatory BMSBuilding:B [place] 8 1 [facility] Repository 04/19/2018 [id number] Ambulatory Joce Joce 3 [facility] ing:BFHLAB Repository 09/06/2017 [id number] Ambulatory Joce Joce 1 [facility] ing:LABSPEC Repository PAYERS PAYERS ENCOUNTER GUARANTOR PAYER SUBSCRIBER SOURCE 05/31/2018 RADHA [place] Primary RADHA [id number] Insurance:MEDICARE KEENERDOB: [facility] PART A BPolicy Number: [id number] mo [id number] Repository [address]Qtl: (330) Date:2018-04-20 [phone] () 05/31/2018 Secondary RADHA [place] Insurance:HUMANA KEENERDOB: Community COMMERCIALPolicy [id number] Hospital Number: Repository [id number] Date:2134-56-60NX [address] [place] [phone]: 05/31/2018 Tertiary NOT GIVENUNK [place] Insurance[facility]LF [facility] Number: Effective Repository Date:2018-04-20 05/30/2018 RADHA J Primary RADHA J [place] [id number] Insurance:MEDICARE KEENERDOB: Community [place] PART A BPolicy [place]: [id number] [id number] Repository [address]Aun: (118) Date:2018-04-21 [phone] () 05/30/2018 Secondary RADHA J [place] Insurance:HUMANA KEENERDOB: Community COMMERCIALPolicy [id number] Hospital Number: Repository [id number] Date:7991-98-12KC [address] [place] [phone]: 05/30/2018 Tertiary NOT GIVENUNK Joce Insurance:SELF PAY [facility] Number: Effective Repository Date:2018-04-21 05/30/2018 RADHA J Primary RADHA J Pisek [id number] Insurance:MEDICARE KEENERDOB: Community [place] PART A BPolicy Number: [id number], [place] [id number] Repository [address]Qou: (905) Date:2018-04-21 [phone] () 05/30/2018 Secondary RADHA J Joce Insurance:HUMANA KEENERDOB: Community COMMERCIALPolicy [id number] Hospital Number: Repository [id number] Date:2847-25-16KQ [address] [place] [address]CS: 05/30/2018 Tertiary NOT GIVENUNK [place] Insurance:SELF PAY [facility] Hospital Number: Effective Repository Date:2018-05-30 04/21/2018 RADHA J Primary RADHA J Joce [id number] Insurance:MEDICARE KEENERDOB: Community [place] PART A BPolicy Number: [id number] [id number] Repository [address]Dtd: (622) Date:2018-04-21 [phone] () 04/21/2018 Secondary RADHA J Joce Insurance:HUMANA KEENERDOB: Community COMMERCIALPolicy [id number] Hospital Number: Repository [id number] Date:[id number] [address]OF: 04/21/2018 Tertiary NOT GIVENUNK Joce Insurance:SELF PAY [facility] Number: Effective Repository Date:2018-04-21 04/19/2018 RADHA J Primary RADHA J Joce [id number] Insurance:MEDICARE KEENERDOB: Community [place] PART A BPolicy Number: [id number] [id number] Repository [address]Gqe: (880) Date:2018-04-19 [phone] () 04/19/2018 Secondary RADHA J Joce Insurance:HUMANA KEENERDOB: Community COMMERCIALPolicy [id number] Hospital Number: Repository [id number] Date:[id number] [address]BZ: 04/19/2018 Tertiary NOT GIVENUNK Joce Insurance:SELF PAY [facility] Number: Effective Repository Date:2018-04-19 09/06/2017 Tobi Medrano Primary RADHA J Joce [id number] Insurance:MEDICARE KEENERDOB: Community [place] PART A BPolicy Number: [id number] [id number] Repository [address]Tnj: (323) Date:2017-09-06 [phone] () 09/06/2017 Secondary RADHA J Joce Insurance:HUMANA KEENERDOB: Community COMMERCIALPolicy [id number] Hospital Number: Repository [id number] Date:[id number] [address]BN: 09/06/2017 Tertiary NOT GIVENUNK Joce Insurance:SELF PAY [facility]: Effective Repository Date:2017-09-06
== END ==
PROVIDERS: Family Provider Family Medicine; PCP Family Medicine; Visit Provider Family Medicine
DX: Z12.31 Encounter for screening mammogram for malignant neoplasm of breast (principal)
CPT/HCPCS: 77063; 77067

== ENCOUNTER → 2019-04-20 10:30 | Outpatient (CLI) | payer MEDICARE, OTHER, SELFPAY ==
[2018-05-30 08:31] VITALS: BMI 31.8
[2019-04-20 13:06] LABS: Absolute Lymphocyte Count 1.48 X10^3/uL (0.83-4.51); Absolute Neutrophil Count 4.5 X10^3/uL (2.0-7.7); Basophil# 0.07 X10^3/uL; Eosinophil# 0.25 X10^3/uL; Eosinophils% 3.6 % (0-5); Hemoglobin 13.5 g/dL (12.0-15.0); Lymphocyte # 1.48 X10^3/ul (4.0); Lymphocyte % 21.2 % (19-41); Mean Corp Hgb Conc 32.1 g/dL (32-36); Mean Corpuscular Hgb 29.2 pg (27.0-32.0); Mean Corpuscular Volume 90.9 fL (81-99); Mean Platelet Vol. 10.7 fl (6.2-12.0); Monocyte# 0.66 X10^3/uL; Monocyte% 9.4 % (0-10); NRBC Flagged by Analyzer 0 % (0-5); Neutrophil # 4.49 X10^3/uL (2.7-7.7); Neutrophil % 64.2 % (47-70); Platelet Count 324 K/mm3 (150-450); RBC Distribution Width CV 13.2 % (11.6-14.6); RBC Distribution Width SD 44.1 fl (35.1-43.9); Red Blood Count 4.62 M/mm3 (4.2-5.4)
[2019-04-20 13:25] LABS: ALB/GLOB Ratio 0.9 RATIO (0.9-2.4); AST(SGOT) 14 U/L (15-37); Alanine Aminotransfer ALT/SGPT 12 U/L (13-56); Albumin, Serum 3.6 g/dL (3.2-5.0); Alkaline Phosphatase 94 U/L (45-117); Anion Gap 5 (5-15); BUN 17 mg/dL (7-18); BUN/Creat Ratio 18.5 RATIO (10-20); Calcium,Total 9.3 mg/dL (8.5-10.1); Chloride 105 mmol/L (98-107); Creatinine, Serum 0.92 mg/dL (0.55-1.02); EST Glomerular Filtration Rate 63 mL/min (>60); Est Glom Filt Rate - Afr Amer 76 mL/min (>60); Globulin 4.1 g/dL (2.2-4.2); Glucose 104 mg/dL (74-106); Potassium 3.6 mmol/L (3.5-5.1); Protein, Total 7.7 g/dL (6.4-8.2); Sodium Level 140 mmol/L (136-145); T4 Free Direct 0.89 ng/dL (0.76-1.46); Thyroid Stim Hormone (TSH) 4.02 uIU/mL (0.358-3.74)
== END ==
PROVIDERS: Family Provider Family Medicine; PCP Family Medicine; Visit Provider Family Medicine
DX: E11.9 Type 2 diabetes mellitus without complications (principal); E03.9 Hypothyroidism, unspecified; I10 Essential (primary) hypertension
CPT/HCPCS: 36415; 80053; 84439; 84443; 85025

== ENCOUNTER → 2019-06-05 15:57 | Outpatient (CLI) | payer MEDICARE, OTHER, SELFPAY ==
[2018-05-30 08:31] VITALS: BMI 31.8
[2019-06-05 17:31] LABS: Thyroid Stim Hormone (TSH) 1.85 uIU/mL (0.358-3.74)
== END ==
PROVIDERS: Family Provider Family Medicine; PCP Family Medicine; Visit Provider Family Medicine
DX: E03.9 Hypothyroidism, unspecified (principal)
CPT/HCPCS: 36415; 84443

== ENCOUNTER → 2019-06-09 08:51 | Outpatient (CLI) | payer MEDICARE, OTHER, SELFPAY ==
[2018-05-30 08:31] VITALS: BMI 31.8
--- NOTE | 2019-06-09 08:55 | BI_ITS ---
MAMMOGRAPHY - BILATERAL SCREENING REASON FOR EXAM: Female, 78 years old. Routine annual screening examination. PERTINENT HISTORY: Non-contributory. History of bilateral excisional breast biopsies. TECHNIQUE: Digital bilateral breast guera (3D mammographic acquisition) in the CC and MLO projections. 2-D mediolateral oblique (MLO) and craniocaudad (CC) views of both breasts were obtained. CAD: Full Field Digital Mammography with Computer Added Detection was performed. COMPARISON: Comparison is made with prior study dated May 31, 2018 and April 04, 2017. FINDINGS: Breast Composition: The breasts are almost entirely fatty. There are no dominant masses or suspicious calcifications. No other significant abnormalities are identified. There has been no significant change since the prior study. BI/SCREEN MAMM (CAD) W/GUERA BILAT IMPRESSION: Stable bilateral screening mammogram. Yearly follow-up mammogram recommended. (A) ASSESSMENT CATEGORY: BIRADS Category 1: Negative. A letter regarding these results will be sent to the patient by the facility within 30 days. Approximately 10% of breast cancers are not detected by mammography. A normal mammogram should not delay biopsy of a clinically suspicious abnormality. [id number] Electronically Signed: Yogesh Terrazas, at 8:48 EST , Service support ,
== END ==
PROVIDERS: Family Provider Family Medicine; PCP Family Medicine; Referring Provider Family Medicine; Visit Provider Family Medicine
DX: Z12.31 Encounter for screening mammogram for malignant neoplasm of breast (principal)
CPT/HCPCS: 77063; 77067

== ENCOUNTER → 2019-09-04 08:55 | Outpatient (CLI) | payer MEDICARE, OTHER, SELFPAY ==
[2019-08-30 10:38] VITALS: BMI 31.8
--- NOTE | 2019-09-04 08:56 | US_ITS ---
STUDY: ULTRASOUND BREAST - LEFT REASON FOR EXAM: Female, 78 years old. Pain in the left breast. TECHNIQUE: Axial and longitudinal images of the LEFT breast were performed with a high resolution ultrasound transducer. # OF IMAGES: 23 COMPARISON: Comparison is made with prior mammogram done earlier today. FINDINGS: LEFT Breast: The retroareolar region was examined by ultrasound. Mild degree of retroareolar ductal dilatation. US/Breast Limited Unilateral IMPRESSION: Mild degree of retroareolar ductal dilatation. Routine annual mammographic follow-up is recommended. ASSESSMENT CATEGORY: BIRADS Category 2: Benign. A letter regarding these results will be sent to the patient by the facility within 30 days. Electronically Signed: Yogesh Terrazas, at 13:49 EST , Service support ,
--- NOTE | 2019-09-04 08:56 | BI_ITS ---
MAMMOGRAPHY - UNILATERAL DIAGNOSTIC: LEFT BREAST REASON FOR EXAM: Female, 78 years old. One-month history of left breast tenderness. PERTINENT HISTORY: Non-contributory. TECHNIQUE: Digital unilateral breast dianne (3D mammographic acquisition) in the CC and MLO projections. 2-D mediolateral oblique (MLO) and craniocaudad (CC) views of both breasts were obtained. CAD: Full Field Digital Mammography with Computer Added Detection was performed. COMPARISON: Comparison is made with prior study dated June 09, 2019 and May 31, 2018. FINDINGS: Breast Composition: The breasts are almost entirely fatty. There are no dominant masses or suspicious calcifications. No other significant abnormalities are identified. There has been no significant change since the prior study. BI/DIAG MAMM W/CAD, UNILAT IMPRESSION: Stable unilateral diagnostic mammogram. With the patient''s history of left breast tenderness, ultrasound correlation is recommended. ASSESSMENT CATEGORY: BIRADS Category 0: Incomplete. Need additional imaging evaluation. A letter regarding these results will be sent to the patient by the facility within 30 days. Approximately 10% of breast cancers are not detected by mammography. A normal mammogram should not delay biopsy of a clinically suspicious abnormality. Electronically Signed: Yogesh Terrazas, at 10:16 EST , Service support ,
== END ==
PROVIDERS: PCP Family Medicine; Referring Provider Nurse Practitioner Women's Health; Visit Provider Nurse Practitioner Women's Health
DX: N64.4 Mastodynia (principal)
CPT/HCPCS: 76642; 77061; 77065; G0279

== ENCOUNTER → 2020-04-22 11:15 | Outpatient (CLI) | payer MEDICARE, OTHER, SELFPAY ==
[2019-08-30 10:38] VITALS: BMI 31.8
--- NOTE | 2020-04-22 09:00 | FLU_PTH ---
PATIENT: JOB RUGGIERO LOC: [facility] U#:[id number] AGE/SX: 84/F ROOM: RE04/22/[address]: Dr. Ernie Robles MD : 1940 BED: DIS: SPEC #: [id number] RECD: 04/22/20 12:00 STATUS: NITIN REAnnamarie #: [id number] NIA: 04/22/20 09:[address]: Ernie Robles DEPT: CYTOLOGY RECD BY: Mulugeta Crenshaw ENTERED: 04/22/20 13:11 SP TYPE: Fluid OTHR DR: Dr. Jason Morton MD Tissues: Urine Procedures: Special Stain Group II Cytospin Fluid HEADER OPERATION: Not noted PRE-OP DIAGNOSIS: Malignant neoplasm of bladder TISSUE SUBMITTED: Urine for cytology DIAGNOSIS CYTOLOGY Urine for cytology (cytospin): Rare atypical urothelial cells, favor reactive. Bacterial colonies. AM:caroline 04/23/20 CYTOLOGY STUDY Slides are reviewed. CYTOLOGY GROSS Received is 20 ml of dark yellow cloudy fluid labeled with the patient's name and and designated per the requisition as urine. Submitted for cytology preparation. / caroline 04/22/20 TC:? CPT: 39767
[2020-04-22 11:33] LABS: Cytology, Body Fluid / CSF SEE PATHOLOGY REPORT
== END ==
PROVIDERS: PCP Family Medicine; Visit Provider Urology
DX: C67.9 Malignant neoplasm of bladder, unspecified (principal)
CPT/HCPCS: 88108; 88313

== ENCOUNTER → 2020-05-02 08:47 | Outpatient (CLI) | payer MEDICARE, OTHER, SELFPAY ==
[2019-08-30 10:38] VITALS: BMI 31.8
--- NOTE | 2020-05-02 08:51 | EKG12_ITS ---
Test Reason : PRE OP Blood Pressure : / mmHG Vent. Rate : 093 BPM Atrial Rate : 093 BPM P-R Int : 178 ms QRS Dur : 140 ms QT Int : 382 ms P-R-T Axes : 048 -04 -22 degrees QTc Int : 474 ms Sinus rhythm with Premature atrial complexes Right bundle branch block Abnormal ECG Confirmed by HERBERTH SANDOVAL, JESÚS ([id number]), clinical editor CANDACE URIAS ([id number]) on 05/07/2020 9:38:08 AM Referred By: Ernie Robles Confirmed By:JESÚS KEVIN MD
== END ==
PROVIDERS: PCP Family Medicine; Referring Provider Urology; Visit Provider Urology
DX: Z11.59 Encounter for screening for other viral diseases (principal)
CPT/HCPCS: 87635; 93005; C9803; U0003

== ENCOUNTER → 2020-05-06 13:59 | Outpatient (CLI) | payer MEDICARE, OTHER, SELFPAY ==
[2019-08-30 10:38] VITALS: BMI 31.8
[2020-05-06 14:59] LABS: Hematocrit 41.8 % (37-47); Hemoglobin 13.3 g/dL (12.0-15.0); Mean Corp Hgb Conc 31.8 g/dL (32-36); Mean Corpuscular Hgb 29.2 pg (27.0-32.0); Mean Corpuscular Volume 91.7 fL (81-99); Mean Platelet Vol. 10.5 fl (6.2-12.0); Platelet Count 351 K/mm3 (150-450); Red Blood Count 4.56 M/mm3 (4.2-5.4); White Blood Count 9.2 K/mm3 (4.4-11.0)
[2020-05-06 15:39] LABS: Anion Gap 6 (5-15); BUN 23 mg/dL (7-18); BUN/Creat Ratio 25.9 RATIO (10-20); Calcium,Total 9.4 mg/dL (8.5-10.1); Chloride 103 mmol/L (98-107); Creatinine, Serum 0.89 mg/dL (0.55-1.02); EST Glomerular Filtration Rate 65 mL/min (>60); Est Glom Filt Rate - Afr Amer 79 mL/min (>60); Glucose 91 mg/dL (74-106); Potassium 3.6 mmol/L (3.5-5.1); Sodium Level 140 mmol/L (136-145)
== END ==
PROVIDERS: PCP Family Medicine; Referring Provider Urology; Visit Provider Urology
DX: E11.8 Type 2 diabetes mellitus with unspecified complications (principal)
CPT/HCPCS: 36415; 80048; 85027

== ENCOUNTER → 2020-05-09 15:04 | Outpatient (CLI) | payer MEDICARE, OTHER, SELFPAY ==
[2019-08-30 10:38] VITALS: BMI 31.8
--- NOTE | 2020-05-09 | BLA_PTH ---
PATIENT: JOB RUGGIERO LOC: [facility] U#:[id number] AGE/SX: 84/F ROOM: RE05/09/[address]: Dr. Ernie Robles MD : 1940 BED: DIS: SPEC #: [id number] RECD: 05/09/20 15:04 STATUS: NITIN LESLEY #: [id number] NIA: 05/09/20 00:[address]: Ernie Robles DEPT: SURGICAL PATHOLOGY RECD BY: Mari Adame ENTERED: 05/12/20 08:24 SP TYPE: BLADDER BX OTHR DR: Dr. Jason Morton MD [facility] Tissues: Urinary bladder, NOS Procedures: Surgery Specimen Level IV HEADER OPERATION: Bladder biopsy PRE-OP DIAGNOSIS: Bladder tumor TISSUE SUBMITTED: Bladder biopsy MICROSCOPIC DIAGNOSIS Bladder, biopsy: Fragments of urothelial mucosa with moderate chronic inflammation. Negative for malignancy. SJ:caroline 05/13/20 COMMENT Correlation with clinical, cystoscopic findings and appropriate follow up are necessary. MICROSCOPIC DESCRIPTION Slides are reviewed. GROSS DESCRIPTION Received in fixative is one container labeled with the patient's name and designated bladder biopsy. The specimen consists of two irregular fragments of bryant soft tissue that in aggregate measure 0.3 x 0.1 x 0.1 cm. The specimen is totally submitted in one cassette. / SJ:caroline 05/12/20 TC:3 CPT: 14657
== END ==
PROVIDERS: PCP Family Medicine; Referring Provider Urology; Visit Provider Urology
DX: D49.4 Neoplasm of unspecified behavior of bladder (principal)
CPT/HCPCS: 88305

== ENCOUNTER → 2020-09-13 07:56 | Outpatient (CLI) | payer MEDICARE, OTHER, SELFPAY ==
[2020-09-10 08:44] VITALS: BMI 31.8
--- NOTE | 2020-09-13 07:58 | CT_ITS ---
CT of the right lower extremity without contrast INDICATION: Knee pain, preop knee arthroplasty, May toe protocol. TECHNIQUE: Multiple thin section axial CT images of the right lower extremity were obtained through the hip joint, knee joint, and ankle joint and filmed in bone windows. Furthermore, multiple sagittal and coronal reconstructions were performed. Dose limiting techniques were utilized. COMPARISON: X-ray 09/10/2020 FINDINGS: No abnormal soft tissue mass, lymphadenopathy, fluid collection. No acute fracture or dislocation. No lytic or blastic lesions. The right hip joint is normal. Examination the knee joint demonstrates severe arthrosis of the medial compartment with joint space narrowing, osteophyte formation, subchondral sclerosis. Mild arthrosis of the lateral and patellofemoral compartments. Examination the ankle joint demonstrates chronic corticated avulsion fractures of the medial lateral malleoli. No arthrosis. IMPRESSION: Severe right knee arthrosis. Electronically Signed: Sunny Jimenez MD at 9:46 EST Tel , Service support , CT/Extremity Lower without Contra
== END ==
PROVIDERS: PCP Family Medicine; Referring Provider Orthopaedic Surgery; Visit Provider Orthopaedic Surgery
DX: M17.11 Unilateral primary osteoarthritis, right knee (principal)
CPT/HCPCS: 73700

== ENCOUNTER 2020-09-30 09:42 | Observation (INO) | payer MEDICARE, OTHER, SELFPAY ==
[2020-09-10 08:44] VITALS: BMI 31.8
--- NOTE | 2020-09-16 09:51 | EKG12_ITS ---
Test Reason : PRE SURGERY Blood Pressure : / mmHG Vent. Rate : 104 BPM Atrial Rate : 104 BPM P-R Int : 174 ms QRS Dur : 138 ms QT Int : 372 ms P-R-T Axes : 031 029 011 degrees QTc Int : 489 ms Sinus tachycardia with Premature atrial complexes Right bundle branch block Abnormal ECG Confirmed by ROSHAN SANDOVAL, GENE ([id number]), editor publications CORRY SALOMON ([id number]) on 09/17/2020 10:05:50 AM Referred By: Duncan Castro Confirmed By:GENE ISLAS MD
--- NOTE | 2020-09-16 09:57 | EKG12_ITS ---
Test Reason : PRE SURGERY Blood Pressure : / mmHG Vent. Rate : 097 BPM Atrial Rate : 097 BPM P-R Int : 178 ms QRS Dur : 140 ms QT Int : 386 ms P-R-T Axes : 054 019 015 degrees QTc Int : 490 ms Normal sinus rhythm Right bundle branch block Abnormal ECG When compared with ECG of 16-SEP-2020 09:57, MANUAL COMPARISON REQUIRED, DATA IS UNCONFIRMED Confirmed by ROSHAN SANDOVAL, GENE ([id number]), clinical editor CORRY SALOMON ([id number]) on 09/19/2020 9:31:51 AM Referred By: Duncan Castro Confirmed By:GENE ISLAS MD
--- NOTE | 2020-09-16 09:57 | EKG12_ITS ---
Test Reason : PRE SURGERY Blood Pressure : / mmHG Vent. Rate : 094 BPM Atrial Rate : 094 BPM P-R Int : 184 ms QRS Dur : 138 ms QT Int : 384 ms P-R-T Axes : 061 016 018 degrees QTc Int : 480 ms Normal sinus rhythm Right bundle branch block Abnormal ECG When compared with ECG of 16-SEP-2020 09:57, MANUAL COMPARISON REQUIRED, DATA IS UNCONFIRMED Confirmed by ROSHAN SANDOVAL, GENE ([id number]), book editor CORRY SALOMON ([id number]) on 09/19/2020 9:33:51 AM Referred By: Duncan Castro Confirmed By:GENE ISLAS MD
[2020-09-16 10:53] LABS: Absolute Lymphocyte Count 1.68 X10^3/uL (0.83-4.51); Absolute Neutrophil Count 3.8 X10^3/uL (2.0-7.7); Basophil# 0.04 X10^3/uL; Basophil% 0.6 % (0-1); Eosinophil# 0.28 X10^3/uL; Eosinophils% 4.4 % (0-5); Hematocrit 40.9 % (37-47); Hemoglobin 13.3 g/dL (12.0-15.0); Lymphocyte # 1.68 X10^3/ul (4.0); Lymphocyte % 26.4 % (19-41); Mean Corp Hgb Conc 32.5 g/dL (32-36); Mean Corpuscular Volume 89.3 fL (81-99); Mean Platelet Vol. 10.5 fl (6.2-12.0); Monocyte# 0.54 X10^3/uL; Monocyte% 8.5 % (0-10); NRBC Flagged by Analyzer 0 % (0-5); Neutrophil % 59.8 % (47-70); Platelet Count 316 K/mm3 (150-450); RBC Distribution Width CV 12.8 % (11.6-14.6); RBC Distribution Width SD 41.6 fl (35.1-43.9); Red Blood Count 4.58 M/mm3 (4.2-5.4); White Blood Count 6.4 K/mm3 (4.4-11.0)
[2020-09-16 11:01] LABS: Prothrombin Time (Protime)PT. 12.7 SECONDS (11.7-14.9)
[2020-09-16 11:02] LABS: Partial Thromboplast Time 32.8 Seconds (24.1-36.2)
[2020-09-16 11:18] LABS: Anion Gap 4 (5-15); BUN 17 mg/dL (7-18); BUN/Creat Ratio 21.1 RATIO (10-20); Calcium,Total 9.2 mg/dL (8.5-10.1); Chloride 105 mmol/L (98-107); Creatinine, Serum 0.81 mg/dL (0.55-1.02); EST Glomerular Filtration Rate 73 mL/min (>60); Est Glom Filt Rate - Afr Amer 88 mL/min (>60); Glucose 99 mg/dL (74-106); Potassium 3.5 mmol/L (3.5-5.1); Sodium Level 139 mmol/L (136-145)
[2020-09-16 11:40] LABS: Magnesium 2.1 mg/dL (1.6-2.6); Thyroid Stim Hormone (TSH) 1.49 uIU/mL (0.358-3.74)
[2020-09-17 08:52] LABS: Fructosamine 243 umol/L (0-285)
[2020-09-30] VITALS (12 sets, daily range): BP systolic 99–137; BP diastolic 52–76; PULSE 90–108; RESP 14–18; TEMP 36.2–37.1; O2SAT 93–100; BMI 30.4; BMI 30.5
[2020-09-30] MEDS: Celecoxib 200 MG Capsule 400 MG PO (06:29)
[2020-09-30] MEDS: Gabapentin 600 MG Tablet PO (06:29)
[2020-09-30] MEDS: Acetaminophen 500 MG Tablet 1000 MG PO ×3 (06:29→22:02)
[2020-09-30] MEDS: Lactated Ringers 1,000 ML 100 ML IV (06:30)
[2020-09-30 06:55] LABS: Bedside Glucose 93 mg/dL (70-110)
[2020-09-30] MEDS: Scopolamine 1mg/72hr Patch 1 PATCH TD (07:00)
--- NOTE | 2020-09-30 07:16 | PCM.HP.BLA ---
History and Physical Date of Admission: 09/30/20 Intake Intake Visit Reasons: right knee Allergies No Known Allergies Allergy (Verified 09/16/20 09:24) [facility] Medical History Osteoarthritis of knees, bilateral (Chronic) Actinic keratosis (Chronic) Bladder cancer (Acute) Depression (Acute) Hypothyroid (Chronic) Hypertension (Chronic) Type 2 diabetes mellitus (Chronic) Surgical History (Updated 09/10/20 @ 08:54 by Bela Cooper) History of carpal tunnel release (Acute) H/O lumpectomy (Resolved) History of bladder surgery (Resolved) S/P oophorectomy (Resolved) Family History (Updated 09/10/20 @ 08:55 by Bela Cooper) Father CVA (cerebral vascular accident) Heart disease Mother Gallbladder cancer Brother CVA (cerebral vascular accident) Social History (Updated 09/19/20 @ 12:[address] Duncan Castro DO) household members: spouse housing: house Smoking Status: Never smoker alcohol intake: never details: occasionally substance use type: does not use caffeine: Yes what type of physical activity do you participate in: none seatbelt use: always do you feel safe at home: Yes additional social history: -Tobi HPI right knee: Details: Parts of this documentation were recorded by a scribe, this documentation accurately reflects the service provided and the decisions made by me, Dr. Duncan Castro DO 09/19/20 0750. JOB RUGGIERO is a 79 year old F here today for right knee IOVERA treatment. SHe is scheduled to undergo a right TKA on 09/30/2020. She continues to have right knee pain and thsi is limiting her ADLS. Denies numbness, tingling or other associated symptoms.Denies any changes since the last visit. ROS Const Denies system reviewed and no additional complaints, except as docu, Denies body aches, Denies chills, Denies fatigue, Denies frequent falls, Denies headache(s), Denies weakness ENT Denies headache(s) Card Denies system reviewed and no additional complaints, except as docu, Denies chest pain, Denies shortness of breath Resp Denies system reviewed and no additional complaints, except as docu, Denies chest congestion, Denies cough, Denies shortness of breath GI Denies system reviewed and no additional complaints, except as docu, Denies abdominal pain, Denies constipation, Denies loose stools, Denies incontinent of stools, Denies nausea, Denies vomiting Denies system reviewed and no additional complaints, except as docu, Denies urinary incontinence Musc Reports system reviewed and no additional complaints, except as docu, Reports joint pain, Denies joint swelling, Denies numbness, Denies radiating pain into limb, Reports stiffness Skin/Breast Denies system reviewed and no additional complaints, except as docu, Denies changing lesions, Denies dry skin, Denies redness, Denies boil, Denies lesions, Denies new lesions, Denies non-healing lesions, Denies itching, Denies rash, Denies skin ulcer, Denies sores, Denies unusual bruising, Denies wounds Neuro No frequent falls, No headache(s), No numbness, No weakness Endo Denies fatigue Ortho Exam General General: Yes no acute distress Neurologic: Yes alert Psychologic: Yes reasonable and appropriate Right Knee Skin/Wound: No erythema, No ecchymosis, No swelling Homans Sign: No Knee ROM: Yes ROM-Extension -20 to 0, No ROM-Flexion 0-140 (118) Examination: Yes Med jt line tenderness Stability: NML: Anterior Drawer, NML: Posterior Drawer, NML: Valgus 0, NML: Valgus 30, NML: Varus 0, NML: Varus 30 KNEE: frail skin no joint effusion 1/4 posterior tibial 1/4 dorsalis pedis Left Knee Skin/Wound: No ecchymosis, No erythema, Yes swelling (mild) Homans Sign: No Knee ROM: Yes ROM-Extension -20 to 0, No ROM-Flexion 0-140 (118) Examination: Yes med jt line tenderness Stability: NML: Anterior Drawer, NML: Kristy, NML: Posterior Drawer, NML: Valgus 0, NML: Valgus 30, NML: Varus 0 KNEE: 2/4 posterior tibial 1/4 dorsalis pedis Office Procedures Iovera Details:: Preoperative diagnosis :right knee pain, OA Postoperative diagnosis: Same Procedure: Cryotherapy with Iovera device to anterior femoral cutaneous nerve and 2 branches of the infrapatellar saphenous nerve III nerves in total Description of procedure: Patient was brought back to the procedure room the operative extremity was identified by both patient and physician. The PIP flexion crease was measured to the midpoint of the patella and this distance was divided in 3 resulting in 10 cm location proximal to the midpoint of the patella. This line was extended medial and lateral to the extent of the edges of the patella. This was our treatment line for the anterior femoral cutaneous nerve. A second treatment line was made 5 cm medial to the inferior pole of the patella and 5 cm distally. The leg was prepped with alcohol and Betadine. Lidocaine with epi was used along the treatment lines. Using the Iovera device treatment lines were treated with 1 minute cycles. Reproduction of paresthesias was monitored in the area of nerve distribution. Once all 3 nerves were treated across the 2 treatment lines patient was cleaned and a light dressing with 4 x 4 and Chang wrap was applied. Patient tolerated the procedure without complication. Assessment & Plan Problems 1. Chronic pain of right knee M25.561; G89.29 Plan Patient educated on the IOVERA procedure and wishes to proceed with IOVERA of the right knee today. Instructed agian on the pre surgical wash and surgical ensure drinks prior to surgery. Instructed to not take any NSAIDs or aspirin 7 days prior to surgery. Follow up 2 weeks post op or sooner if pain, swelling, numbness or associated symptoms, or concerns develop. All questions answered. Patient in agreement of plan. Orders Orders: Iovera Today M25.569 Coding Level of Care Code Off vis,est,level 3 Diagnoses Chronic pain of right knee M25.561; G89.29 ??Chronicity: chronic I have re-examined the patient. There are no clinical changes since date of exam Procedure Criteria Procedure Type: Elective COVID Risk Discussion: The surgeon/proceduralist and patient have discussed in detail the risk of exposure to and/or potential harm posed by the COVID-19 virus with having a surgery/procedure at this time versus the risk of delaying the surgery/procedure. It is not possible to know either the risk of delaying the surgery or procedure or chance of getting an infection with perfect accuracy, but a joint decision was made between the patient and the surgeon/proceduralist to proceed at this time with the scheduled surgery/procedure as indicated on the consent form.
[2020-09-30] MEDS: Cefazolin 2 GM in 0.9% Normal Saline 100 ML IV (07:45)
[2020-09-30] MEDS: dexAMETHasone 10 MG/ML Vial IV (08:00)
[2020-09-30] MEDS: Lactated Ringers 1,000 ML 125 ML IV (09:00)
[2020-09-30] MEDS: Bupivacaine Mpf 0.5% 30 ML VIAL (09:09)
[2020-09-30] MEDS: Triamcinolone Acetonide 40 MG/ML Vial (09:09)
[2020-09-30] MEDS: Epinephrine (1 mg/ml) 1 MG/ML VIAL (09:09)
[2020-09-30] MEDS: 0.9% Normal Saline (Pres. free 10 ML Vial (09:09)
--- NOTE | 2020-09-30 10:13 | OP.PCM_ITS ---
Report of Operation Date of Procedure: 09/30/20 Description of Surgical Findings:: Preoperative diagnosis: right knee DJD Postoperative diagnosis: Same Procedure: right total knee arthroplasty CT guided Robotic Assisted Implant: Sushila triathlon cemented femoral component size 4, press-fit tibial baseplate size 3, cemented asymmetric patella size 35, polyethylene X3 size 9 CS Anesthesia: Spinal with adductor canal block Tourniquet time: 33 minutes at 300 mmHg Complications: None Condition: Stable to PACU Estimated blood loss: 125 cc Indication for procedure: This is a 79-year-old female with long standing degenerative joint disease of the knee flexion contracture and significant varus deformity who has failed conservative treatment and wished to proceed with elective total knee arthroplasty. Risk benefits and alternatives were reviewed including; risk of bleeding, infection, nerve artery and tissue damage, continued pain, postoperative stiffness, venous thromboembolism, need for postoperative rehabilitation, mechanical feel to the knee, and expected postoperative course. The operative CT and templating was performed with component sizing Procedure: The patient was met in the preoperative holding area. The operative extremity was identified by both patient and physician and was marked. Patient was met by anesthesia. An adductor canal block was placed by anesthesia postoperatively the patient was brought back to the operating room on a wheeled cart and transferred to the operating table in the supine position. Anesthesia was started. A well-padded tourniquet was placed on the operative extremity. The patient was prepped and draped in the usual sterile fashion. A timeout was called to ensure the proper patient procedure and extremity were being contemplated. An Esmarch was used to exsanguinate the extremity. The tourniquet was inflated. A 10 blade scalpel was used to make a midline incision down through the skin and subcutaneous tissue. Skin retractors placed. Bovie was used to perform meticulous hemostasis. full-thickness flaps were elevated medial and lateral along the joint capsule. A deep blade scalpel was used to perform a medial parapatellar arthrotomy. The knee was brought to full extension. A Bovie was used to release the soft tissues off the most proximal aspect of the medial tibial plateau, a three-quarter inch curved osteotome was also used for this process. The infrapatellar fat pad was excised. The superior fat pad was excised partially anteriorolateraly and portion the anterioromedial pad was elevated from the femur. At this point our intra- articular femoral array was placed of a 45 degree angle proximal and posterior to the medial epicondyle. Our tibial array was placed greater than 1 hands breath below the incision at a 20 degree angle stab incisions were used for this case were attached and checked with the robotic software. Tourniquet was let down. At this point registration wong were taken throughout the knee as well as checkpoints placed in the femur and tibia once the knee was registered then tensioned the medial and lateral ligaments in extension and 90 degrees of flexion. We then used these numbers to adjust our components within parameters to balance the knee in both flexion and extension once this was done on our monitor we then proceeded with using the robotic arm to make our tibial plateau cut and anterior posterior and chamfer cuts and distal on the femur we then trialed and achieved the desired plan with a well-balanced knee. Lug holes were drilled in the femur the tibia preparation was completed with a fin punch and the patella was prepared by first using a caliper to ensure sufficient bone stock and a patellar reamer to remove the desired amount of bone locals were drilled for an asymmetric poly-. We then brought the knee through range of motion with excellent patellar tracking. We thoroughly irrigated the knee with a trial components were removed a posterior capsular injection with her standard cocktail was performed the aqua Mantis was also used to aid in hemostasis. Betadine rinse was allowed to sit and washed out components were cemented. Aricept rinse was then used followed by several more rate liters of irrigation after it was allowed to sit. Joint capsule was closed with #1 Ethibond [id number] followed by Vicryl in the subcutaneous tissues staple in the skin arrays and checkpoints were removed prior to closure all counts were correct stab incisions were closed with a stable standard dressing in the form of Mepilex for the main incision Xeroform 4 x 4 and Tegaderm over pin site holes. Thigh-high WYATT hose applied over top of dressing. Patient tolerated the procedure well and was directed to PACU in stable condition no intraoperative complications
--- NOTE | 2020-09-30 10:35 | RAD_ITS ---
STUDY: X-RAY - RIGHT KNEE REASON FOR EXAM: Postop right total knee arthroplasty. TECHNIQUE: 2 view(s) of the knee. COMPARISON: CT images 09/13/2020. FINDINGS: There is a right total knee arthroplasty without evidence of complication. There is postoperative gas in the soft tissues and overlying skin soniya. RAD/Knee 1 or 2 Views IMPRESSION: Uncomplicated right total knee arthroplasty. Electronically Signed: Abdoul Méndez MD at 13:55 EDT Tel , Service support ,
[2020-09-30 10:40] LABS: Bedside Glucose 127 mg/dL (70-110)
[2020-09-30] MEDS: Cefazolin 1 GM/50 ML BAG IV ×2 (10:52→18:51)
--- NOTE | 2020-09-30 14:51 | CASEMGMT ---
Social Work Note Per city planner questions, pt has completed HCPOA and LW and provided documents to [facility]. SW reviewed chart, Durable POA and LW on file. SW printed off documents and placed on pt's chart. SW in to speak with pt. Pt's daughter Larissa present in room. SW introduced self and role at [facility]. SW updated pt and Larissa that LW and Durable POA is on file but not HCPOA. Pt started to fall back asleep. Larissa states just to leave information on HCPOA for pt. SW provided pt with HCPOA document. Krupa Dunbar ROPE RIDER, COUNTER TOP ASSEMBLER
[2020-09-30] MEDS: 0.9% NaCl Peripheral Flush Adult/Peds IV (19:01)
[2020-09-30] MEDS: Senna/Docusate Sodium 1 Tablet 2 TABLET PO (22:02)
[2020-10-01] VITALS: BMI 30.5
[2020-10-01] MEDS: Cefazolin 1 GM/50 ML BAG IV (03:51)
[2020-10-01] MEDS: 0.9% NaCl Peripheral Flush Adult/Peds IV ×3 (03:52→08:59)
[2020-10-01 04:00] VITALS: BP 121/68; PULSE 75; RESP 16; TEMP 36.9; O2SAT 93; BMI 30.5
[2020-10-01] MEDS: Acetaminophen 500 MG Tablet 1000 MG PO ×2 (06:13→13:13)
[2020-10-01] MEDS: APIXABAN 2.5 MG TABLET PO (06:15)
[2020-10-01 07:27] VITALS: BP 127/67; PULSE 93; RESP 18; TEMP 36.7; O2SAT 91
--- NOTE | 2020-10-01 07:31 | PN.ORTHO_ITS ---
Subjective: Patient seen and examined this morning. Comfortable without complaints. No fevers chills nausea vomiting shortness of breath or chest pain. - Physical Exam Vitals/I&O's: Vital Signs Temp Pulse Resp BP Pulse Ox 98.1 F 93 18 127/67 H 91 10/01/20 07:27 10/01/20 07:27 10/01/20 07:27 10/01/20 07:27 10/01/20 07:27 Oxygen Flow Rate (L/min) 6 Oxygen Delivery Method Nasal Cannula Weight: 188 lb 11.451 oz Body Mass Index (BMI) 30.4 Finger Stick Blood Glucose 127 Intake and Output for Last 24 Hours 09/29/20 09/30/20 10/01/20 23:59 23:59 23:59 Intake Total 2535.5 / 2535.5 87.75 / 87.75 Output Total 800 / 800 Balance 1735.5 / 1735.5 87.75 / 87.75 General: Alert, Oriented x3, Cooperative, No apparent distress Extremities: - - Right knee dressing with small drop of blood in center of bandage compartments soft neurovascular intact. Microbiology Past 72 Hours 09/29/20 09:00 Interface Orders SARS-CoV-2 Antigen (Rapid) - Final Laboratory Results 09/30/20 10:36: POC Glucose 127 H Current Medications Acetaminophen (Acetaminophen 500 Mg Tablet) 1,000 mg PO Q8 [facility] Last Admin: 10/01/20 06:13 Dose: 1,000 mg Documented by: Apixaban (Apixaban 2.5 Mg Tablet) 2.5 mg PO BID [facility] Last Admin: 10/01/20 06:15 Dose: 2.5 mg Documented by: Hydromorphone HCl (Hydromorphone 0.5 Mg/0.5 Ml Syringe) 0.5 mg IV Q2H PRN PRN PRN Reason: Pain Score 6-10 Sodium Chloride () 250 mls @ 15 mls/hr IV .[id number] PRN PRN Reason: Saline Flush Last Infusion: 10/01/20 06:23 Dose: 0 mls/hr Documented by: Sodium Chloride () 250 mls @ 15 mls/hr IV .[id number] PRN PRN Reason: Additional IVPB Infusion Ketorolac Tromethamine (Ketorolac 15 Mg/Ml Vial) 15 mg IV Q6H PRN PRN PRN Reason: Pain Score 1-5 Stop: 10/02/20 09:43 Ondansetron HCl (Ondansetron 4 Mg/2 Ml Vial) 4 mg IV Q6H PRN PRN PRN Reason: NAUSEA Oxycodone HCl (Oxycodone 5 Mg Tablet) 5 - 10 mg PO Q4H PRN PRN PRN Reason: Pain Score 4-10 Senna/Docusate Sodium (Senna/Docusate Sodium 1 Tablet) 2 tablet PO BID TITO Last Admin: 09/30/20 22:02 Dose: 2 tablet Documented by: Sodium Chloride (0.9% Nacl Peripheral Flush Adult/Peds) 5 - 15 ml IV UD PRN PRN Reason: SALINE FLUSH Last Admin: 10/01/20 06:15 Dose: 10 ml Documented by: Medical Necessity - Tobacco Use Smoking Status: Never smoker Tobacco Use: Non-smoker Assessment/Plan All Active Problems (Last Reviewed 09/10/20 @ 08:53 by Bela Cooper) Bladder cancer (Acute) Depression (Acute) Screening for intestinal cancer (Acute) Postoperative day #1 right total knee arthroplasty DVT prophylaxis SCDs WYATT hose and Eliquis 2.5 mg twice daily for 2 weeks postop PT OT weightbearing as tolerated Patient does live alone and is of elderly age may benefit from rehab prior to returning home we will see how she does with physical therapy this morning and take therapy recommendations into consideration as well as patient wishes.
--- NOTE | 2020-10-01 07:34 | DCINST_ITS ---
Discharge Diet: No Restrictions Keep extremity elevated above heart level: Operative Extremity Call your doctor if you observe: Shortness of breath, Chest pain Additional Instructions: Ice and elevate one week while not ambulating. Ambulation is encouraged. Weightbearing as tolerated. Use assistive devise for stability. Encourage FULL knee extension and flexion 1 time EVERY time you get up and down and MULTIPLE times per day. No showering 72 hours after surgery. Begin showering postop day #3. Remove the dressing prior to shower and gently wash with warm water and antibacterial soap then pat dry and place abdominal pad (or plain gauze) and WYATT hose over top. This is to be done daily. Do not submerge for 3 weeks. If not showering daily after the initial 72 hours then you must clean incision and change dressing daily. Do not allow animals near the incision area. Keep clean. Follow anticoagulation recommendations as prescribed. Do not take any NSAIDs while on blood thinner. Do not take any additional narcotic pain medication other than what was prescribed on you surgery day without discussing with physician. Start physical therapy. If you are not currently scheduled for physical therapy or you are unsure of appointment time please call office OTF to arrange. Call Dr. Castro with any concerns. Allergies/Adverse Reactions: Allergies No Known Allergies Allergy (Verified 09/30/20 06:22) Medications to take at Discharge Hydrochlorothiazide [Hctz] 25 mg PO DAILY 05/24/18 amlodipine 5 mg-benazepril 10 mg capsule 1 cap PO DAILY 08/30/19 duloxetine 30 mg capsule,delayed release 60 mg PO DAILY cap 08/30/19 levothyroxine 50 mcg tablet 75 mcg PO DAILY tab 08/30/19 apple cider vinegar 600 mg capsule 1 tab PO DAILY 09/10/20 calcium carbonate 600 mg (1,500 mg)-vitamin D3 500 unit capsule 1 cap PO DAILY 09/10/20 vitamins A,C,G-tnyz-dqnnda 14,320 unit-226 mg-200 unit capsule 1 cap PO BID 09/10/20 Biotin 1 mg PO DAILY 09/16/20 Polyvinyl Alcohol/Povidone/Pf [Refresh Classic Eye Drops] 1 ea OP BID 09/16/20 Acetaminophen [Tylenol] 1,000 mg PO Q8 #100 tablet 10/01/20 Apixaban [Eliquis] 2.5 mg PO BID #28 tablet 10/01/20 Oxycodone [Oxyir] 5 - 10 mg PO Q4H PRN PRN #50 tablet 10/01/20 The following prescriptions were given: Apixaban [Eliquis] 2.5 mg PO BID #28 tablet Transmission Status: Pending to [facility] Oxycodone [Oxyir] 5 - 10 mg PO Q4H PRN PRN #50 tablet PRN Reason: Pain Score 6-10 Transmission Status: Sent to [facility] Acetaminophen [Tylenol] 1,000 mg PO Q8 #100 tablet Transmission Status: Pending to [facility] Primary Care Physician: Jason Morton MD [Primary Care Provider] - Test Results: Test results from this visit will be discussed in further detail at your follow- up appointment, if applicable. Please Follow Up With: Duncan Castro DO When: 2 weeks
[2020-10-01 08:51] VITALS: RESP 18; O2SAT 95
[2020-10-01] MEDS: Calcium Carb/Vitamin D 1 TABLET Tablet PO (08:57)
[2020-10-01] MEDS: Senna/Docusate Sodium 1 Tablet 2 TABLET PO (08:58)
[2020-10-01] MEDS: DULoxetine Hcl 30 MG Capsule 60 MG PO (08:58)
[2020-10-01] MEDS: Multivitamin (Healthy Eyes) Capsule 1 CAP PO (08:58)
[2020-10-01] MEDS: hydroCHLOROthiazide 25 MG Tablet PO (08:58)
[2020-10-01] MEDS: amLODIPine 5 MG Tablet PO (08:58)
[2020-10-01] MEDS: Ketorolac 15 MG/ML Vial IV (08:59)
[2020-10-01] MEDS: Lisinopril 10 MG Tablet PO (08:59)
[2020-10-01 09:06] VITALS: BMI 30.5
[2020-10-01] MEDS: Levothyroxine 75 MCG Tablet PO (09:09)
--- NOTE | 2020-10-01 09:52 | CASEMGMT ---
JOHN PAUL GORE Assessment: Face to Face with pt for initial transition planning/care coordination assessment. JOHN PAUL GORE introduced self and role at [facility], pt voices understanding and consents to assessment. Pt is A/O x4 and answers all questions appropriately at this time. Pt sitting up in chair in no distress. Care providers, pharmacy, and demographics verified/updated. Admitting Dx: R Total Knee with Brad PCP: Clive Specialists: james Castro [facility]acy[facility] Pres[facility]: yes LW/HPOA: Pt states she has a LW and DPOA. Son, Chung Bermudez and daughter, Larissa Bermudez are joint DPOA's. Pt states she will ask her dtr to bring in today so it can be on file. LNOK: SonChung; dtr, Larissa Bermudez Living Arrangements: Pt lives alone in a single story house with 3 steps to enter with a rail. Pt reports being I in ADL's. Pt denies concerns at home. Transportation: Pt usually drives self. Her neighbor will be taking her to therapy. DME/HHC/SNF: Pt has a walker, cane, raised toilet seat, lift chair, walk in shower with grab bars in one bathroom and grab bars in the other. Pt denies previously having HHC or SNF admissions. Pt reports her unexpectedly passed in August of this year. States she had this surgery to try to help keep her mind off of his . Pt was agreeable to have SW talk with her. She states anything that would help. Notified Jovon PAYTON. Pt states no concerns with going home at time of dc. She has outpt therapy set up at [facility] this Tuesday. Pt states no further concerns/needs. Advised pt to ask CM if any further question/concerns/needs arise, voices understanding. Pt Goal: Home with outpt therapy Plan: Home with outpt therapy and family support, follow up plans in place. JHON PAUL GORE discussed GABRIEL form with pt. JOHN PAUL GORE explained GABRIEL form, pt voiced understanding. Pt signed form and filed in chart. Pt provided with a copy of signed GABRIEL form. Pt denied further questions or concerns.
[2020-10-01 11:30] VITALS: BP 132/73; PULSE 75; RESP 18; TEMP 36.6; O2SAT 95
--- NOTE | 2020-10-01 12:37 | CASEMGMT ---
Addendum entered by Krupa Dunbar 10/01/20 13:30: SW back in to speak with pt. Pt's daughter present in room. Pt getting ready to be discharged. SW introduced self and role at [facility]. Pt confirms she recently lost her unexpectedly. SW offered support to pt. SW asked pt how she is coping with the lost. Pt states I am just doing regular chores at home. Pt states that her family has been supportive. Pt states that she does feel sad sometimes but is able to think about other things to get her mind off of being sad. Pt states that she has a friend who also lost her recently and they plan on going to [facility] and participating in their bereavement program/support program. Pt denied additional needs or concerns at this time. Original Note: Social Work Note SW received consult that pt's unexpectedly in August of this year. SW attempted to meet with pt. Pt currently working with OT. SW will follow up with pt. Krupa Dunbar RETIREMENT CONSULTANT, PATIENT CARE SPECIALIST
[2020-10-01] MEDS: oxyCODONE 5 MG Tablet PO (13:13)
== END 2020-10-01 13:35 | disposition home or self-care (01) ==
LOC: SDC 09:48 → MS3 09:48
PROVIDERS: Anesthesiology; Admitting Provider Orthopaedic Surgery; PCP Family Medicine; Referring Provider Orthopaedic Surgery; Visit Provider Orthopaedic Surgery
PROC: 0SRC0JZ Replacement of Right Knee Joint with Synthetic Substitute, Open Approach (ICD-10-PCS; CPT 27447; principal; 2020-09-30 07:15)
DX: M17.11 Unilateral primary osteoarthritis, right knee (principal); Z20.828 Contact with and (suspected) exposure to other viral communicable diseases; F41.9 Anxiety disorder, unspecified; E11.9 Type 2 diabetes mellitus without complications; Z79.899 Other long term (current) drug therapy; I10 Essential (primary) hypertension; E03.9 Hypothyroidism, unspecified; M21.169 Varus deformity, not elsewhere classified, unspecified knee; I45.10 Unspecified right bundle-branch block; R94.31 Abnormal electrocardiogram [ECG] [EKG]; I49.1 Atrial premature depolarization; R00.0 Tachycardia, unspecified; N32.9 Bladder disorder, unspecified; E78.9 Disorder of lipoprotein metabolism, unspecified; G25.81 Restless legs syndrome
CPT/HCPCS: 01402; 27447; 64447; S2900; 36415; 73560; 80048; 82962; 82985; 83036; 83735; 84443; 85025; 85610; 85730; 86850; 86900; 86901; 87081; 87426; 93005; 96361; 96365; 96366; 96375; 97110; 97116; 97162; 97166; 97535; 99218; C1776; C9803; J7050; J7120; A4216; G0378; G0379; J2405; J3490

== ENCOUNTER 2020-11-14 10:00 | Outpatient (RCR) | payer MEDICARE, OTHER, SELFPAY ==
[2020-09-10 08:44] VITALS: BMI 31.8
[2020-09-30 12:00] VITALS: BMI 30.4
--- NOTE | 2020-10-06 12:13 | HP.PTEVAL_ITS ---
Patient's Visit Information JOB RUGGIERO is a 79 year old F referred to Physical Therapy by Dr. Duncan Castro DO with a diagnosis of R TKA: DOS: 09/30/20. Date of Evaluation: 10/03/20 Physical Therapist: David Mejia DPT - Visit Plan Frequency: 3x /Week Duration: 4-6 Weeks Plan: Start with ROM progressing flexion and extension to end ranges. Add in strengtht initiation as tolerated. May use ice.compression for pain control. Progress to functional mobility/strengthening as tolerated. - Subjective Pt. is here today for her initial evaluation with diagnosis of R TKA.DOS: 09/20/20. Pt. arrives today walking with FWW. Pt. reports overall doing well. She denies N/T in either LE. Pt. reports no calf pain, no shortness of breath, no dizziness, no chest pains. Pt. still has aquacell bandage in place. She reports being HEP compliant, but is having difficulty with SLR. She has been taking pain medicine as prescribed and icing frequently. She is wearing her TEDs as prescribed. Pt. is hopeful to get back to all recreational activities withot limitations including recreational walking. - Pain R knee Pain Intensity (Out of 10): 4 Pain Intensity Range: 2, 7 - Objective POSTURE: Pt. has slight lateral wt. shift to L side in stance. She uses FWW to assist with stabilizing. Pt. is able to stand without use of AD. PALPATION: Pt. has negative homans sign. Pt. has normal redness. Normal edema noted. 8cm greater on RLE compared to L at patellar tendon. Slight bruising noted. NEURO: Pt. has normal sensation througout BLEs. Pt. has 2+ achilles DTR of BLEs. ROM: R knee 0-5-92deg. PROM 0-0-98deg. Pt. has tight HS, but other andrews doing well. MMT: LLE: 5/5 throughout. RLE- anle 5/5 throughout; knee- ext 3/5, flexion 4-/5, hip- flexion 3/5, abd 3/5, ext 3/5. GAIT: Pt. ambulates with 4 wheeled walker without issues. Pt. has slight lack in R TKE during stance phase. Decent knee flexion during swing phase. STAIRS: step to pattern with 2 HR without issues. Pt. able to complete with loading LLE only. TU.9 sec with FWW. WOMAC: 67/96. - Goals Goal 1:: LTG: pt. to be I with HEP. Goal Time Frame: 4-6 Weeks Goal 2:: STG: Pt. to sleep throughout the night without increase in symptoms. Goal Time Frame: 2 Weeks Goal 3:: LTG: pt. to have increased R knee ROM to 0-0-120deg without increase in symptoms. Goal Time Frame: 2-4 Weeks Goal 4:: LTG: Pt. to have atleast 4+/5 strength throughout RLE allowing her to complete all functional mobility. Goal Time Frame: 4-6 Weeks Goal 5:: LTG: Pt. to ambulate with normal gait pattern without AD without increase in symptoms. Goal Time Frame: 4-6 Weeks Goal 6:: LTG: Pt. to negotiate 1 flight of stairs with 1 HR with reciprocal pattern and 0-1/10 pain in R knee. Goal Time Frame: 4-6 Weeks - Rehabilitation Potential Physical Therapy Diagnosis: Pt. has signs and symptoms consistent with RTKA. Pt. has subsequent hypomobility, weakness, difficulty with gait, increased edema and decreased stair negotiation. Pt. would benefit from PT to address the above limitations progressing back to all functional mobility as tolerated. Rehabilitation Potential: Excellent - Anticipated Interventions Patient/Client Instruction: Educate patient on: Condition, Plan of Care, Risk Factors, Benefits of Fitness Program For the Purpose of:: To facilitate caregiver knowledge, To improve self management, To prevent re-injury, To improve ability to perform tasks related to life management, To improve tolerance to ADL's Therapeutic Exercise to Include: Strength training, Power training, Endurance training, Balance training, Postural training, Flexibilty training, Gait and locomotor training, Passive ROM, Active ROM For the Purpose of:: To decrease pain, To decrease swelling/inflammation, To increase ROM, To improve nutrient delivery to tissue, To increase oxygenation perfusion, To improve muscle performance and motor function, To increase tolerance to activity/condition/position, To improve performance and independence with ADL's, To improve gait and locomotor functions, To improve health of tissue, To decrease soft tissue restriction, To increase flexibility/ROM, To improve endurance, To improve balance, To improve safety with gait Cryotherapy (ice pack, ice massage): Yes Vasopneumatic device: Yes For the Purpose of:: To decrease pain, To decrease swelling/inflammation, To increase ROM Thank you for the opportunity to evaluate your patient. For Medicare and Medicare HMO plans, please review the plan of care and approve it. It will need to be FAXED BACK to us at [phone] for Medicare purposes. For Medicare only, by signing this I certify the plan of care. Please let me know if there are questions or concerns regarding this plan of care. Physician Signature: Date:
--- NOTE | 2020-10-29 10:37 | HP.PTEVAL_ITS ---
Patient's Visit Information JOB RUGGIERO is a 79 year old F referred to Physical Therapy by Dr. Duncan Castro DO with a diagnosis of R TKA. Date of Evaluation: 10/03/20 Physical Therapist: David Mejia DPT - Visit Plan Frequency: 3x /Week Duration: 4-6 Weeks Plan: I would recommend continuing PT with focus on TKE and progressing flexion ROM. Add in gait progression withoutAD as tolerated. Progress stretching to HEP. - Subjective Pt. is here today for her initial evaluation with diagnosis of R TKA.DOS: 09/20/20. Pt. arrives today walking with FWW. Pt. reports overall doing well. She denies N/T in either LE. Pt. reports no calf pain, no shortness of breath, no dizziness, no chest pains. Pt. still has aquacell bandage in place. She reports being HEP compliant, but is having difficulty with SLR. She has been taking pain medicine as prescribed and icing frequently. She is wearing her TEDs as prescribed. Pt. is hopeful to get back to all recreational activities withot limitations including recreational walking. - Pain R knee Pain Intensity (Out of 10): 1 Pain Intensity Range: 2, 7 - Objective POSTURE: Pt. has slight lateral wt. shift to L side in stance. She uses FWW to assist with stabilizing. Pt. is able to stand without use of AD. PALPATION: Pt. has negative homans sign. Pt. has normal redness. Normal edema noted. 8cm greater on RLE compared to L at patellar tendon. Slight bruising noted. NEURO: Pt. has normal sensation througout BLEs. Pt. has 2+ achilles DTR of BLEs. ROM: R knee 0-5-92deg. PROM 0-0-98deg. Pt. has tight HS, but other andrews doing well. MMT: LLE: 5/5 throughout. RLE- anle 5/5 throughout; knee- ext 3/5, flexion 4-/5, hip- flexion 3/5, abd 3/5, ext 3/5. GAIT: Pt. ambulates with 4 wheeled walker without issues. Pt. has slight lack in R TKE during stance phase. Decent knee flexion during swing phase. STAIRS: step to pattern with 2 HR without issues. Pt. able to complete with loading LLE only. TU.9 sec with FWW. WOMAC: 67/96. - Goals Goal 1:: LTG: pt. to be I with HEP. Goal Time Frame: 4-6 Weeks Goal 2:: STG: Pt. to sleep throughout the night without increase in symptoms. Goal Time Frame: 2 Weeks Goal 3:: LTG: pt. to have increased R knee ROM to 0-0-120deg without increase in symptoms. Goal Time Frame: 2-4 Weeks Goal 4:: LTG: Pt. to have atleast 4+/5 strength throughout RLE allowing her to complete all functional mobility. Goal Time Frame: 4-6 Weeks Goal 5:: LTG: Pt. to ambulate with normal gait pattern without AD without increase in symptoms. Goal Time Frame: 4-6 Weeks Goal 6:: LTG: Pt. to negotiate 1 flight of stairs with 1 HR with reciprocal pattern and 0-1/10 pain in R knee. Goal Time Frame: 4-6 Weeks - Rehabilitation Potential Physical Therapy Diagnosis: Pt. has signs and symptoms consistent with RTKA. Pt. has subsequent hypomobility, weakness, difficulty with gait, increased edema and decreased stair negotiation. Pt. would benefit from PT to address the above limitations progressing back to all functional mobility as tolerated. Rehabilitation Potential: Excellent - Anticipated Interventions Patient/Client Instruction: Educate patient on: Condition, Plan of Care, Risk Factors, Benefits of Fitness Program For the Purpose of:: To facilitate caregiver knowledge, To improve self management, To prevent re-injury, To improve ability to perform tasks related to life management, To improve tolerance to ADL's Therapeutic Exercise to Include: Strength training, Power training, Endurance training, Balance training, Postural training, Flexibilty training, Gait and locomotor training, Passive ROM, Active ROM For the Purpose of:: To decrease pain, To decrease swelling/inflammation, To increase ROM, To improve nutrient delivery to tissue, To increase oxygenation perfusion, To improve muscle performance and motor function, To increase tolerance to activity/condition/position, To improve performance and independence with ADL's, To improve gait and locomotor functions, To improve health of tissue, To decrease soft tissue restriction, To increase flexibility/R OM, To improve endurance, To improve balance, To improve safety with gait Cryotherapy (ice pack, ice massage): Yes Vasopneumatic device: Yes For the Purpose of:: To decrease pain, To decrease swelling/inflammation, To increase ROM Thank you for the opportunity to evaluate your patient. For Medicare and Medicare HMO plans, please review the plan of care and approve it. It will need to be FAXED BACK to us at [phone] for Medicare purposes. For Medicare only, by signing this I certify the plan of care. Please let me know if there are questions or concerns regarding this plan of care. Physician Signature: Date:
--- NOTE | 2020-11-14 11:01 | HP.PTDCSUM ---
It has been my pleasure to treat JOB RUGGIERO referred by Dr. Duncan Castro DO, with the diagnosis of R TKA for a total of 16 visit(s). Discharge Date: 11/14/20 Please see the following information for a summary of their discharge status. Subjective: Pt. reports being 95% better overall. Pt. reports no issues. Pt. being HEP compliant. 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 She has started to progressive walking program as well. She was out in her garden pulling weeds yesterday without issues. R knee Pain Intensity (Out of 10): 0 % Improvement: 95 Objective/Function: MMT 5/5 throughout. BLEs. ROM: R knee 0-1-119deg. GAIT: pt. walks without AD, with good TKE and good knee flexion during swing. STAIRS: Pt. negotiates 1 flgiht of stairs with 1 HR with reciprocal pattern, but no pain. TU sec without AD. Pt. is overall doing very well. Pt. to continue with HEP with focus on ROM and progressing functional mobility as tolerated. Goal 1:: LTG: pt. to be I with HEP. Goal Progress: Goal Met Goal 2:: STG: Pt. to sleep throughout the night without increase in symptoms. Goal Progress: Goal Met Goal 3:: LTG: pt. to have increased R knee ROM to 0-0-120deg without increase in symptoms. Goal Progress: Progressing Goal 4:: LTG: Pt. to have atleast 4+/5 strength throughout RLE allowing her to complete all functional mobility. Goal Progress: Goal Met Goal 5:: LTG: Pt. to ambulate with normal gait pattern without AD without increase in symptoms. Goal Progress: Progressing Goal 6:: LTG: Pt. to negotiate 1 flight of stairs with 1 HR with reciprocal pattern and 0-1/10 pain in R knee. Goal Progress: Goal Met Plan: Pt. DC to HEP at this point in time. Pt. is overall doing very well. I talked to her about continuing to stretch her RLE to maintain and also work on her LLE as she plans to have her L replaced later this year. Discharge Comments: Pt. will be DC from PT at this point in time. She is doing very well. She has good ROM, but is to work on the final range of motion. She has good strength. Pt. to continue with her HEP and progress as tolerated. If there are questions or concerns regarding this patient's physical therapy, please feel free to call me at [phone]. Thank you for the referral of this patient. Sincerely, SUZETTE PackerT
== END 2020-11-14 19:00 | disposition home or self-care (01) ==
LOC: PT 10:00
PROVIDERS: PCP Family Medicine; Referring Provider Orthopaedic Surgery; Visit Provider Orthopaedic Surgery
DX: Z96.651 Presence of right artificial knee joint (principal)
CPT/HCPCS: 97110; 97140; 97161; 97164

== ENCOUNTER → 2021-01-15 08:19 | Outpatient (CLI) | payer MEDICARE, OTHER, SELFPAY ==
[2020-11-10 09:23] VITALS: BMI 30.4
--- NOTE | 2021-01-15 08:21 | BI_ITS ---
MAMMOGRAPHY - BILATERAL SCREENING REASON FOR EXAM: Female, 80 years old. Routine annual screening examination. PERTINENT HISTORY: Non-contributory. TECHNIQUE: Digital bilateral breast guera (3D mammographic acquisition) in the CC and MLO projections. 2-D mediolateral oblique (MLO) and craniocaudad (CC) views of both breasts were obtained. CAD: Full Field Digital Mammography with Computer Added Detection was performed. COMPARISON: Comparison is made with prior study dated 06/09/2019 and 05/31/2018. FINDINGS: Breast Composition: The breasts are almost entirely fatty. There are no dominant masses or suspicious calcifications. Stable multiple small benign-appearing bilateral axillary lymph. No other significant abnormalities are identified. There has been no significant change since the prior study. BI/SCRN MAMM (CAD)W/GUERA BILAT IMPRESSION: Stable bilateral screening mammogram. Yearly follow-up mammogram recommended. (A) ASSESSMENT CATEGORY: BIRADS Category 2: Benign. A letter regarding these results will be sent to the patient by the facility within 30 days. Approximately 10% of breast cancers are not detected by mammography. A normal mammogram should not delay biopsy of a clinically suspicious abnormality. [id number] Electronically Signed: Yogesh Terrazas MD at 9:19 EDT , Service support ,
--- NOTE | 2021-01-15 08:46 | BD_ITS ---
STUDY: DUAL ENERGY X-RAY ABSORPTIOMETRY / DXA REASON FOR EXAM: Female, 80 years old. V76.12ScreeningBONE DENSITY REASON FOR EXAM. Patient is postmenopausal. TECHNIQUE: Bone Mineral Density (BMD) measurements of lumbar spine and bilateral hips were obtained. COMPARISON: Comparison is made with prior study dated 10/28/2015. FINDINGS: Lumbar Spine (L1-L4): g/cm2 (1.320) / T-score (2.5) / Z-score (5.1) Findings are suggestive of normal bone density with a low fracture risk. Left Femur Total: g/cm2 (0.977) / T-score (0.3) / Z-score (2.3) Left Femoral Neck: g/cm2 (0.836) / T-score (-0.1) / Z-score (2.1) Right Femur Total: g/cm2 (0.963) / T-score (0.2) / Z-score (2.2) Right Femoral Neck: g/cm2 (0.850) / T-score (0.0) / Z-score (2.3) The T-Scores on the most recent prior examination were: Lumbar Spine (L1-L4): There has been worsening of bone density since the previous examination. Left Femur Total: which represents a worsening of 4.8%. Right Femur Total: which represents a worsening of 9.5%. BD/Dexa Bone Density Study IMPRESSION: The patient is considered normal as outlined below according to World Werner Organization (WHO) criteria with a low fracture risk. There has been worsening of bone density since the previous examination. Reference Information: The T-score is the number of standard deviations above or below the standard which is normal for young adults at their peak bone mineral density. The World Health Organization (WHO) interprets the T-scores as follows: Above -1 Normal bone density Between -1 and -2.5 Osteopenia Equal to / or below -2.5 Osteoporosis As a practical clinical guideline, osteopenia may be graded as follows: Mild -1 through -1.5 Moderate -1.6 through -2.0 Severe -2.1 through -2.4 The Z-score is the number of standard deviations above or below age-matched controls. A Z-score of less than -1.5 would be considered abnormal. References: 1. NIH Osteoporosis and Related Bone Diseases www osteo.org 2. International Society for Clinical Densitometry www iscd.org 3. National Osteoporosis Foundation www nof.org Electronically Signed: Yogesh Terrazas MD at 10:28 EDT , Service support ,
== END ==
PROVIDERS: PCP Family Medicine; Referring Provider Family Medicine; Visit Provider Family Medicine
DX: Z12.31 Encounter for screening mammogram for malignant neoplasm of breast (principal); Z78.0 Asymptomatic menopausal state
CPT/HCPCS: 77063; 77067; 77080

== ENCOUNTER → 2021-02-18 07:59 | Outpatient (CLI) | payer MEDICARE, OTHER, SELFPAY ==
[2020-11-10 09:23] VITALS: BMI 30.4
--- NOTE | 2021-02-18 08:00 | CT_ITS ---
STUDY: CT SCAN LOWER EXTREMITY LEFT REASON FOR EXAM: Female, 80 years old. Templating left TKA.MIGUEL protocol. RADIATION DOSAGE (If Supplied By Facility): CTDIvol = ( 18.71 ) mGy, DLP = ( 1217.19 ) mGycm. Individualized dose optimization techniques were used for this CT.? TECHNIQUE: Multiple axial tomographic images of the left lower extremity were obtained without intravenous contrast demonstration. Coronal and sagittal reconstruction was obtained as well. COMPARISON: None. FINDINGS: Imaging of the left hip joint was obtained. There is a 6.9 mm bone island in the proximal neck of the left femur. Imaging of the knee joint was obtained. There is a marked degree of joint space narrowing and osteoarthritis with degenerative spur formation along the medial compartment of the knee joint. Small subchondral cysts are seen in the distal femur and proximal tibia. There is also evidence of a marked degree of joint space narrowing with anterior degenerative spurring of the distal femur. Imaging of the ankle joint was obtained. No significant abnormality is seen. CT/Extremity Lower without Contra IMPRESSION: Marked degree of osteoarthritis and joint space narrowing with degenerative spur formation of the medial compartment of the knee joint as well as the femoral patellar joint. Electronically Signed: Yogesh Terrazas MD at 14:40 EDT , Service support ,
== END ==
PROVIDERS: PCP Family Medicine; Referring Provider Orthopaedic Surgery; Visit Provider Orthopaedic Surgery
DX: M17.12 Unilateral primary osteoarthritis, left knee (principal)
CPT/HCPCS: 73700

== ENCOUNTER 2021-03-10 17:14 | Observation (INO) | payer MEDICARE, OTHER, SELFPAY ==
[2020-11-10 09:23] VITALS: BMI 30.4
--- NOTE | 2021-02-18 08:04 | EKG12_ITS ---
Test Reason : PRE OP Blood Pressure : / mmHG Vent. Rate : 087 BPM Atrial Rate : 087 BPM P-R Int : 178 ms QRS Dur : 136 ms QT Int : 390 ms P-R-T Axes : 055 002 -11 degrees QTc Int : 469 ms Normal sinus rhythm Right bundle branch block T wave abnormality, consider inferior ischemia Abnormal ECG Confirmed by HERBERTH SANDOVAL, JESÚS ([id number]), web content editor CORRY SALOMON ([id number]) on 02/19/2021 9:17:57 AM Referred By: Duncan Castro Confirmed By:JESÚS KEVIN MD
[2021-02-18 09:29] LABS: Absolute Lymphocyte Count 1.78 X10^3/uL (0.83-4.51); Absolute Neutrophil Count 4.1 X10^3/uL (2.0-7.7); Basophil# 0.05 X10^3/uL; Basophil% 0.7 % (0-1); Eosinophil# 0.61 X10^3/uL; Eosinophils% 8.4 % (0-5); Hematocrit 38.4 % (37-47); Hemoglobin 12.6 g/dL (12.0-15.0); Lymphocyte # 1.78 X10^3/ul (0.83-4.51); Lymphocyte % 24.7 % (19-41); Mean Corp Hgb Conc 32.8 g/dL (32-36); Mean Corpuscular Hgb 28.4 pg (27.0-32.0); Mean Corpuscular Volume 86.7 fL (81-99); Mean Platelet Vol. 10.2 fl (6.2-12.0); Monocyte# 0.62 X10^3/uL; Monocyte% 8.6 % (0-10); NRBC Flagged by Analyzer 0 % (0-5); Neutrophil # 4.14 X10^3/uL (2.7-7.7); Neutrophil % 57.3 % (47-70); Platelet Count 342 K/mm3 (150-450); RBC Distribution Width CV 13.3 % (11.6-14.6); RBC Distribution Width SD 41.8 fl (35.1-43.9); Red Blood Count 4.43 M/mm3 (4.2-5.4); White Blood Count 7.2 K/mm3 (4.4-11.0)
[2021-02-18 09:40] LABS: Prothrombin Time (Protime)PT. 12.1 SECONDS (11.7-14.9)
[2021-02-18 09:42] LABS: Partial Thromboplast Time 32.9 Seconds (24.1-36.2)
[2021-02-18 10:09] LABS: Anion Gap 6 (5-15); BUN 18 mg/dL (7-18); BUN/Creat Ratio 25.9 RATIO (10-20); Calcium,Total 9.6 mg/dL (8.5-10.1); Chloride 104 mmol/L (98-107); Creatinine, Serum 0.69 mg/dL (0.55-1.02); EST Glomerular Filtration Rate 87 mL/min (>60); Est Glom Filt Rate - Afr Amer 105 mL/min (>60); Glucose 99 mg/dL (74-106); Magnesium 2.3 mg/dL (1.6-2.6); Potassium 3.6 mmol/L (3.5-5.1); Sodium Level 139 mmol/L (136-145); Thyroid Stim Hormone (TSH) 2.47 uIU/mL (0.358-3.74)
[2021-02-19 12:24] LABS: Fructosamine 243 umol/L (0-285)
[2021-03-10] VITALS (13 sets, daily range): BP systolic 108–139; BP diastolic 62–88; PULSE 90–104; RESP 16–18; TEMP 36.3–37.1; O2SAT 91–100; BMI 29.6
[2021-03-10 10:01] LABS: Bedside Glucose 126 mg/dL (70-110)
[2021-03-10] MEDS: Celecoxib 200 MG Capsule 400 MG PO (10:08)
[2021-03-10] MEDS: Acetaminophen 500 MG Tablet 1000 MG PO ×2 (10:09→20:29)
[2021-03-10] MEDS: Gabapentin 600 MG Tablet PO (10:09)
[2021-03-10] MEDS: Scopolamine 1mg/72hr Patch 1 PATCH TD (10:09)
[2021-03-10] MEDS: Lactated Ringers 1,000 ML 100 ML IV ×2 (10:18→13:46)
--- NOTE | 2021-03-10 12:45 | KNEE_PTH ---
PATIENT: JOB RUGGIERO LOC: [facility] U#:[id number] AGE/SX: 80/F ROOM: DC305 RE03/10/[address]: Dr. Duncan Castro DO : 1940 BED: 1 DIS: 03/11/2021 SPEC #: [id number] RECD: 03/10/21 15:39 STATUS: NITIN SUTTON #: [id number] NIA: 03/10/21 12:[address]: Duncan Castro DEPT: SURGICAL PATHOLOGY RECD BY: Mari Adame ENTERED: 03/11/21 08:03 SP TYPE: TOTAL KNEE OTHR DR: Dr. Jason Morton MD Tissues: Knee, NOS Procedures: Decalcification bone/plaque Surgery Specimen Level IV HEADER OPERATION: ERAS, total knee replacement, robotic arm assist PRE-OP DIAGNOSIS: Unilateral primary osteoarthritis TISSUE SUBMITTED: Bone and soft tissue, left knee MICROSCOPIC DIAGNOSIS Bone and soft tissue of right knee, total knee resection: Severe degenerative joint disease. AM:caroline 03/16/2021 MICROSCOPIC DESCRIPTION Slides are reviewed. GROSS DESCRIPTION Received is one container designated bone and soft tissue left knee. The specimen consists of multiple fragments of bryant-yellow bone measuring in aggregate 15 x 10 x 2 cm. Also in the specimen container are multiple fragments of yellow-white soft tissue measuring in aggregate 2 x 2 x 0.5 cm. A number of bony fragments contain articular surfaces consistent with tibial plateau and femoral condyle and displaying prominent osteophyte formation, eburnation, and bone erosion. Bunch Maker sections are submitted in two cassettes as follows: 1 - soft tissue, 2 - bone after decalcification. / AM:caroline 03/13/21 TC:5 [facility]: [id number], [id number]
[2021-03-10] MEDS: Cefazolin 2 GM in 0.9% Normal Saline 100 ML IV (12:54)
[2021-03-10] MEDS: dexAMETHasone 10 MG/ML Vial IV (13:01)
[2021-03-10] MEDS: Betamethasone/Betamethasone 30 MG/5 ML Vial IM (14:26)
[2021-03-10] MEDS: Epinephrine (1 mg/ml) 1 MG/ML VIAL (14:26)
[2021-03-10] MEDS: Bupivacaine Mpf 0.5% 30 ML VIAL (14:26)
[2021-03-10] MEDS: Lactated Ringers 1,000 ML 125 ML IV ×2 (14:50→20:31)
--- NOTE | 2021-03-10 15:05 | RAD_ITS ---
EXAM: XR LEFT KNEE, 1 OR 2 VIEWS : 1940 CLINICAL INDICATION: post op -- AP and Lateral xray of operative knee in PACU TECHNIQUE: Frontal and/or lateral views of the left knee. This report was created using [employer] report generation technology. COMPARISON: None. FINDINGS: BONES/JOINTS: There is a total knee prosthesis in anatomic alignment. No acute fracture. Preservation of the joint space. No sclerotic or destructive changes observed. SOFT TISSUES: There is gas in the overlying soft tissues due to recent surgery. No radiopaque foreign body. RAD/Knee 1 or 2 Views IMPRESSION: Total knee prosthesis in anatomic alignment. There are no acute osseous abnormalities. at 1547 Reported and signed by: Mitch Slater MD Electronically Signed: Mitch Slater MD at 15:46 EDT Tel , Service support ,
--- NOTE | 2021-03-10 15:12 | PCM.HP.BLA ---
History and Physical Date of Admission: 03/10/21 Date of Service: 02/02/21 MR#:[id number]: JOB RUGGIERO #:[id number]:[id number] Provider:Dr. Duncan Castro DOAge/Sex: 80/F [place] [place] [facility] [place] Int[place] Intake Visit Reasons: RIGHT KNEE Chief Complaint: RTKA Allergies No Known Allergies Allergy (Verified 02/02/21 10:33) Medications hydrochlorothiazide 25 mg PO DAILY 05/24/18 [History Confirmed 02/02/21] amlodipine 5 mg-benazepril 10 mg capsule 1 cap PO DAILY 08/30/19 [History Confirmed 02/02/21] duloxetine 30 mg capsule,delayed release 60 mg PO DAILY cap 08/30/19 [History Confirmed 02/02/21] levothyroxine 50 mcg tablet 75 mcg PO DAILY tab 08/30/19 [History Confirmed 02/02/21] apple cider vinegar 600 mg capsule 1 tab PO DAILY 09/10/20 [History Confirmed 02/02/21] calcium carbonate 600 mg (1,500 mg)-vitamin D3 500 unit capsule 1 cap PO DAILY 09/10/20 [History Confirmed 02/02/21] vitamins A,C,S-vzue-elsprx 14,320 unit-226 mg-200 unit capsule 1 cap PO BID 09/10/20 [History Confirmed 02/02/21] biotin 1 mg PO DAILY 09/16/20 [History Confirmed 02/02/21] polyvinyl alcohol-povidon(PF) 1 ea OP BID 09/16/20 [History Confirmed 02/02/21] acetaminophen 1,000 mg PO Q8 #100 tablet 10/01/20 [Rx Confirmed 02/02/21] amoxicillin 500 mg tablet 500 mg PO ONCE #4 tab 02/02/21 [Rx Confirmed 02/02/21] PFSH Medical History (Updated 02/02/21 @ 11:[address] Duncan Castro DO) Actinic keratosis Bladder cancer Depression Hypertension Hypothyroid Osteoarthritis of knees, bilateral Type 2 diabetes mellitus Surgical History (Updated 09/30/20 @ 07:[address] Duncan Castro DO) H/O lumpectomy History of bladder surgery History of carpal tunnel release S/P oophorectomy Family History (Updated 09/10/20 @ 08:55 by Bela Cooper) Father CVA (cerebral vascular accident) Heart disease Mother Gallbladder cancer Brother CVA (cerebral vascular accident) Social History (Updated 10/13/20 @ 12:[address] Duncan Castro DO) household members: spouse housing: house Smoking Status: Never smoker alcohol intake: never details: occasionally substance use type: does not use caffeine: Yes what type of physical activity do you participate in: none seatbelt use: always do you feel safe at home: Yes additional social history: -Tobi YEVGENIY RIGHT KNEE Details: Parts of this documentation were recorded by a scribe, this documentation accurately reflects the service provided and the decisions made by me, Dr. Duncan Castro DO 02/02/21 0749. JOB RUGGIERO is a 80 year old F here today for her 18 week follow up. DOS: 09/30/20, right total knee arthroplasty CT guided Robotic Assisted. and follow up left knee djd Patient states she has been doing great in regards to the right knee. Denies any pain or discomfort. Believes she may have some numbness with her anterior knee. Patient has started swimming three times weekly. Patient states she would like to discuss having her left knee surgery done as well. Last x-ray was: 09/10/20. This 1 is significantly debilitating for her and feels like it is getting worse ROS Musc Denies system reviewed and no additional complaints, except as documented Ortho Exam General General: Yes no acute distress and Yes well groomed Neurologic: Yes alert and Yes oriented x3 Psychologic: Yes reasonable and appropriate Right Knee Patella Translation: 1 Left Knee Knee ROM: No ROM-Extension -20 to 0 (-8) and No ROM-Flexion 0-140 (93) Examination: Yes med jt line tenderness Stability: NML: Anterior Drawer, NML: Posterior Drawer, NML: Varus 0 and NML: Varus 30 and 1+: Valgus 0 and 1+: Valgus 30 Apprehension with Lateral Translation: No Patella Translation: 1 Patella Grind: Yes KNEE: no joint effusion Supplemental Info 11/10/2020 xray right knee: S/P TKA, 09/10/2020 x-ray of bilateral knees advanced medial compartment arthrosis with varus deformity Coding Level of Care Code Off vis,est,level 3 Diagnoses Left knee DJD M17.12 Osteoarthritis type: primary Assessment and Plan Assessment and Plan (1) Left knee DJD: Status: Acute Qualifiers: Osteoarthritis type: primary Qualified Code(s): M17.12 - Unilateral primary osteoarthritis, left knee Plan - Dr. Duncan Castro, DO: Personally reviewed the patient's medical history, medications, surgeries and recent exams if available. Patient would like to proceed with a left total knee replacement. Risks, benefits and alternatives of surgery reviewed including risk of bleeding, infection, nerve, artery and/or tissue damage continued pain or symptoms and expected post-operative course. Patient would like to proceed with the IOVERA treatment for her left knee. Advised patient to not have her eyebrow treatment two weeks prior to surgery. Explained to have the procedure done before her surgery. Patient will stay overnight after her surgery. Will prescribe an ATB for her to take prior to her eyebrow procedure. All questions answered. Patient in agreement of plan. Follow up for her IOVERA or sooner if pain, swelling, numbness or associated symptoms, or concerns develop. Plan Details Other Medications: New: amoxicillin take 4 tabs within 1 hr prior to procedure. 500 mg PO ONCE 4 tabs 0RF 02/02/21 1156<Electronically signed by Duncan Castro DO>Date Duncan Castro DO Cosigner Signature:Date (if applicable) I have re-examined the patient. There are no clinical changes since date of exam
--- NOTE | 2021-03-10 15:13 | OP.PCM_ITS ---
Report of Operation Date of Procedure: 03/10/21 Description of Surgical Findings:: Preoperative diagnosis: Left knee DJD Postoperative diagnosis: Same Procedure: Left total knee arthroplasty CT guided Robotic Assisted Implant: Sushila triathlon cemented], femoral component size 3, tibial baseplate size 4, asymmetric patella size 35, polyethylene X3 size 9 CS Anesthesia: Spinal with adductor canal block Tourniquet time: 22, 12 minutes at 300 mmHg Complications: None Condition: Stable to PACU Estimated blood loss: 150 cc Indication for procedure: This is a 80-year-old female with long standing degenerative joint disease of the knee who has failed conservative treatment and wished to proceed with elective total knee arthroplasty. Risk benefits and alternatives were reviewed including; risk of bleeding, infection, nerve artery and tissue damage, continued pain, postoperative stiffness, venous th romboembolism, need for postoperative rehabilitation, mechanical feel to the knee, and expected postoperative course. The operative CT and templating was performed with component sizing Procedure: The patient was met in the preoperative holding area. The operative extremity was identified by both patient and physician and was marked. Patient was met by anesthesia. An adductor canal block was placed by anesthesia postoperatively the patient was brought back to the operating room on a wheeled cart and transferred to the operating table in the supine position. Anesthesia was started. A well-padded tourniquet was placed on the operative extremity. The patient was prepped and draped in the usual sterile fashion. A timeout was called to ensure the proper patient procedure and extremity were being contemplated. An Esmarch was used to exsanguinate the extremity. The tourniquet was inflated. A 10 blade scalpel was used to make a midline incision down through the skin and subcutaneous tissue. Skin retractors placed. Bovie was used to perform meticulous hemostasis. full-thickness flaps were elevated medial and lateral along the joint capsule. A deep blade scalpel was used to pe rform a medial parapatellar arthrotomy. The knee was brought to full extension. A Bovie was used to release the soft tissues off the most proximal aspect of the medial tibial plateau, a three-quarter inch curved osteotome was also used for this process. The infrapatellar fat pad was excised. The superior fat pad was excised partially anteriorolateraly and portion the anterioromedial pad was elevated from the femur. At this point our intra-articular femoral array was placed of a 45 degree angle proximal and posterior to the medial epicondyle. Our tibial array was placed greater than 1 hands breath below the incision at a 20 degree angle stab incisions were used for this case were attached and checked with the robotic software. Tourniquet was let down. At this point registration wong were taken throughout the knee as well as checkpoints placed in the femur and tibia once the knee was registered then tensioned the medial and lateral ligaments in extension and 90 degrees of flexion. We then used these numbers to adjust our components within parameters to balance the knee in both flexion and extension once this was done on our monitor we then proceeded with using the robotic arm to make our tibial plateau cut and anterior posterior and chamfer cuts and distal on the femur we then trialed and achieved the desired plan with a well-balanced knee. Lug holes were drilled in the femur the tibia preparation was completed with a fin punch and the patella was prepared by first using a caliper to ensure sufficient bone stock and a patellar reamer to remove the desired amount of bone locals were drilled for an asymmetric poly-. We then brought the knee through range of motion with excellent patellar tracking. We thoroughly irrigated the knee with a trial components were removed a posterior capsular injection with her standard cocktail was performed the aqua Mantis was also used to aid in hemostasis. Betadine rinse was allowed to sit and washed out components were cemented. Aricept rinse was then used followed by several more rate liters of irrigation after it was allowed to sit. Joint capsule was closed with #1 Ethibond [id number] followed by Vicryl in the subcutaneous tissues staple in the skin arrays and checkpoints were removed prior to closure all counts were correct stab incisions were closed with a stable standard dressing in the form of Mepilex for the main incision Xeroform 4 x 4 and Tegaderm over pin site holes. Thigh-high WYATT hose applied over top of dressing. Patient tolerated the procedure well and was directed to PACU in stable con dition no intraoperative complications
[2021-03-10 16:11] LABS: Bedside Glucose 127 mg/dL (70-110)
--- NOTE | 2021-03-10 16:45 | CASEMGMT ---
Inpatient order reviewed against Medicare medical necessity requirements. Current documentation does not support an inpatient status. Case submitted to physician advisor for review who states patient is appropriate for observation status. notified of patient being appropriate for outpatient status and is agreeable. Telephone order obtained and entered for observation status.
[2021-03-10] MEDS: Cefazolin 1 GM/50 ML BAG IV (16:52)
[2021-03-10] MEDS: DULoxetine Hcl 60 MG Capsule PO (20:29)
[2021-03-10] MEDS: Senna/Docusate Sodium 1 Tablet 2 TABLET PO (20:30)
[2021-03-11] MEDS: Cefazolin 1 GM/50 ML BAG IV ×2 (00:15→07:56)
[2021-03-11 04:00] VITALS: BP 132/84; PULSE 104; RESP 16; TEMP 36.6; O2SAT 95
[2021-03-11] MEDS: Acetaminophen 500 MG Tablet 1000 MG PO ×2 (06:32→14:21)
[2021-03-11] MEDS: Levothyroxine 75 MCG Tablet PO (06:32)
[2021-03-11 06:33] LABS: Hematocrit 35.6 % (37-47); Hemoglobin 11.7 g/dL (12.0-15.0); Mean Corp Hgb Conc 32.9 g/dL (32-36); Mean Corpuscular Hgb 28.9 pg (27.0-32.0); Mean Corpuscular Volume 87.9 fL (81-99); Mean Platelet Vol. 10.1 fl (6.2-12.0); Platelet Count 301 K/mm3 (150-450); RBC Distribution Width CV 13.6 % (11.6-14.6); RBC Distribution Width SD 44.2 fl (35.1-43.9); Red Blood Count 4.05 M/mm3 (4.2-5.4); White Blood Count 15.8 K/mm3 (4.4-11.0)
[2021-03-11] MEDS: APIXABAN 2.5 MG TABLET PO (06:33)
[2021-03-11 06:54] LABS: Anion Gap 4 (5-15); BUN 12 mg/dL (7-18); BUN/Creat Ratio 18.9 RATIO (10-20); Calcium,Total 8.8 mg/dL (8.5-10.1); Chloride 108 mmol/L (98-107); Creatinine, Serum 0.64 mg/dL (0.55-1.02); EST Glomerular Filtration Rate 96 mL/min (>60); Est Glom Filt Rate - Afr Amer 116 mL/min (>60); Glucose 152 mg/dL (74-106); Potassium 4.3 mmol/L (3.5-5.1); Sodium Level 141 mmol/L (136-145)
--- NOTE | 2021-03-11 07:03 | PCM.PN.ORT ---
Subjective Subjective Seen and examined. Denies fever chills nausea vomiting shortness of breath chest pain pain controlled. Denies palpitations. Objective Data Objective Data Vital Signs: Vital Signs Temp Pulse Resp BP Pulse Ox 97.8 F 104 H 16 132/84 H 95 03/11/21 04:00 03/11/21 04:00 03/11/21 04:00 03/11/21 04:00 03/11/21 04:00 Oxygen Flow Rate (L/min) 6 Oxygen Delivery Method Room Air Weight: 183 lb 10.321 oz Body Mass Index (BMI) 29.6 Intake & Output: Intake and Output for Last 24 Hours 03/09/21 03/10/21 03/11/21 23:59 23:59 23:59 Intake Total 3195.42 / 3695.42 2085.42 / 2085.42 Output Total 400 / 400 Balance 3195.42 / 3695.42 1685.42 / 1685.42 Lab / Micro Data Result Diagrams: 03/11/21 06:00 03/11/21 06:00 Labs: Laboratory Results - last 24 hr 03/10/21 09:55: POC Glucose 126 H 03/10/21 10:25: Blood Type A POSITIVE, Antibody Screen NEGATIVE 03/10/21 16:04: POC Glucose 127 H 03/11/21 06:00: WBC 15.8 H, RBC 4.05 L, Hgb 11.7 L, Hct 35.6 L, MCV 87.9, MCH 28.9, MCHC 32.9, RDW Std Deviation 44.2 H, RDW Coeff of Guero 13.6, Plt Count 301, MPV 10.1 03/11/21 06:00: Sodium 141, Potassium 4.3, Chloride 108 H, Carbon Dioxide 29.0, Anion Gap 4 L, BUN 12, Creatinine 0.64, Estim Creat Clear Calc 42.70, Est GFR (MDRD) Af Amer 116, Est GFR (MDRD) Non-Af 96, BUN/Creatinine Ratio 18.9, Glucose 152 H, Calcium 8.8 Micro: Microbiology 02/18/21 08:40 Swab (Method) Nasal Screen MRSA/MSSA - Final 02/18/21 08:30 Mucosa - Nose SARS-CoV-2 Antigen (Rapid) - Final Radiography Diagnostic Testing: Radiology Impression Knee X-Ray 03/10/21 15:05 IMPRESSION: Total knee prosthesis in anatomic alignment. There are no acute osseous abnormalities. at 1547 Reported and signed by: Mitch Slater MD Electronically Signed: Mitch Slater MD at 15:46 EDT Tel , Service support , Physical Exam Narrative Dressing clean dry intact compartments soft neurovascular intact Const alert and oriented x3 General Appearance: cooperative Assessment & Plan Assessment/Plan (1) Left knee DJD: QUALIFIERS: Osteoarthritis type: primary Qualified Code(s): M17.12 - Unilateral primary osteoarthritis, left knee PLAN: Patient doing well, has some low-level tachycardia since surgery but asymptomatic. Wishes to be discharged home today. DC planning for home after physical therapy and monitoring of vital signs this morning with planned discharge after PT DVT prophylaxis SCDs WYATT martines Eliquis 2.5 mg twice daily for 2 weeks PT outpatient scheduled weightbearing as tolerated Patient has pain medication left over from previous surgery and only took 1 for her last surgery it is not she is requesting I do not send in anymore she is okay with Tylenol. After discussion with case management in agreement to with decision to make patient observation status from surgery.
--- NOTE | 2021-03-11 07:09 | DCINST_ITS ---
Discharge Instructions Dressing / Incision Call your doctor if you observe: Shortness of breath and Chest pain Additional Dressing/Incision Instructions:: Ice and elevate one week while not ambulating. Ambulation is encouraged. Weightbearing as tolerated. Use assistive devise for stability. Encourage FULL knee extension and flexion 1 time EVERY time you get up and down and MULTIPLE times per day. No showering 72 hours after surgery. Begin showering postop day #3. Remove the dressing prior to shower and gently wash with warm water and antibacterial soap then pat dry and place abdominal pad (or plain gauze) and WYATT hose over top. This is to be done daily. Do not submerge for 3 weeks. If not showering daily after the initial 72 hours then you must clean incision and change dressing daily. Do not allow animals near the incision area. Keep clean. Follow anticoagulation recommendations as prescribed. Do not take any NSAIDs while on blood thinner. Do not take any additional narcotic pain medication other than what was prescribed on your surgery day without discussing with physician. Narcotic medication can be addictive. Do not drink alcohol while taking narcotics. Start physical therapy. If you are not currently scheduled for physical therapy or you are unsure of appointment time please call office O[facility] to arrange. Call Dr. Castro with any concerns. Follow Up Care Please Follow Up With: Duncan Castro DO When: 2 weeks Test Results: Test results from this visit will be discussed in further detail at your follow-up appointment, if applicable. Discharge Plan Admission Admit Date/Time: 03/10/21 17:14 Attending Provider: Duncan Castro Primary Care Provider: Jason Morton Discharge Orders/Prescriptions Prescriptions: New Eliquis 2.5 mg Tablet 2.5 mg PO BID Qty: 30 RF: 0 acetaminophen 500 mg Tablet 1,000 mg PO Q6H PRN PRN (Reason: pain) Qty: 100 RF: 0 Continued amlodipine-benazepril 5-10 mg capsule 1 cap PO DAILY RF: 0 apple cider vinegar 600 mg capsule 1 tab PO DAILY RF: 0 calcium carbonate-vitamin D3 [Calcium 600 with Vitamin D3] 600 mg(1,500mg) - 500 unit capsule 1 cap PO DAILY RF: 0 PreserVision AREDS 14,320-226-200 dllk-pa-obqr capsule 1 cap PO BID RF: 0 levothyroxine 75 mcg tablet 75 mcg PO DAILY RF: 0 duloxetine 60 mg capsule,delayed release(DR/EC) 60 mg PO BID RF: 0 hydrochlorothiazide 25 MG tablet 25 mg PO DAILY RF: 0 Refresh Classic (PF) 1 EACH dropperette 1 ea OP BID RF: 0 biotin 1 MG tablet 1 mg PO DAILY RF: 0 Discontinued acetaminophen 500 MG tablet 1,000 mg PO Q8 PRN (Reason: Pain) RF: 0 Referrals / Follow Up: Jason Morton MD [Primary Care Provider] -
[2021-03-11 09:32] VITALS: BP 140/81; PULSE 98; RESP 18; TEMP 36.6; O2SAT 98
[2021-03-11] MEDS: hydroCHLOROthiazide 25 MG Tablet PO ×2 (09:38)
[2021-03-11] MEDS: amLODIPine 5 MG Tablet PO (09:39)
[2021-03-11] MEDS: Senna/Docusate Sodium 1 Tablet 2 TABLET PO (09:39)
[2021-03-11] MEDS: Lisinopril 10 MG Tablet PO (09:39)
[2021-03-11 10:12] VITALS: O2SAT 98
--- NOTE | 2021-03-11 11:25 | CASEMGMT ---
JOHN PAUL GORE Assessment: Face to Face with pt for initial transition planning/care coordination assessment. JOHN PAUL GORE introduced self and role at [facility], pt voices understanding and consents to assessment. Pt is A/O x4 and answers all questions appropriately at this time. Pt sitting up in chair finishing lunch in no distress. Care providers, pharmacy, and demographics verified/updated. Admitting Dx: L TKR PCP:Renetta Morton Specialists:Gloria, ortho; Margaret, uro; Federico, ascencion Preferred [facility]acy[facility] Insurance: [employer] Prescription Benefit: yes LW/HPOA: Pt states she thought she had a DPOA on file that was her children. Made her aware that is is on file but is her . Her has passed. Pt wishes to complete during this hospital stay. Notified Jovon PAYTON. Pt does have LW on file. LNOK: Larissa Bermudez, dtr; Chung Bermudez, son Living Arrangements: Pt lives alone in a single story house with 3 steps to enter with a rail. Pt states she was I in ADL's prior to surgery and denies concerns at home. Transportation: Pt normally drives herself but states she has friends who can transport her to medical appts. DME/HHC/SNF: Pt has a FWW, walker, rollator, grab bars, walk in shower, toilet riser, medical cash poster, shoehorn and a motorized cart. Pt prior to surgery ambulated indep. Pt denies hx of SNF or HHC. Pt states no concerns with going home at time of dc. She states her dtr is going to stay a few nights with her. Pt has therapy set up tomorrow at [facility]. Pt states no further concerns/needs. CM to follow. Advised pt to ask CM if any further question/concerns/needs arise, voices understanding. Pt Goal: Home Plan: Home with outpt therapy Noted pt was ordered Eliquis on dc. TC to [facility] Retail pharmacy, spoke with Adrián who states that [facility] pharmacy is not contracted with pt insurance and her scripts were sent to [facility]. She states pt used an Eliquis savings card previously this year so she does not qualify for one now. Pt is aware of this.
--- NOTE | 2021-03-11 11:32 | CASEMGMT ---
Addendum entered by Felipa Arellano 03/11/21 12:05: Pt notified of status change from inpatient to outpatient when explaining GABRIEL form. Original Note: RN CM in to discuss GABRIEL form with patient. RN BAO explained GABRIEL form, patient voiced understanding. Pt signed form and filed in chart. Pt provided with a copy of signed GABRIEL form. Patient had no further questions or concerns at this time.
--- NOTE | 2021-03-11 13:51 | CASEMGMT ---
Addendum entered by Felipa Arellano 03/11/21 14:42: TC to [facility], pt has a baby aspirin called in. Spoke with nurse, pt to be dc'd on this for anticoagulation. Original Note: Received notification from [facility] nurse that pt has high cost for Eliquis. TC to [facility], spoke with pharmacy who states pt is in her donut hole and her cost is $247.13. Pharmacy staff states this would be the same for the xarelto. States just called and spoke with pharmacist. TC to Dr. Castro's office per request of [facility], left message regarding medication and reason for high cost, requested call back.
[2021-03-11 14:03] VITALS: BP 141/81; PULSE 80; RESP 18; TEMP 36.7; O2SAT 98
--- NOTE | 2021-03-12 17:35 | CASEMGMT ---
In follow-up to the Condition Code 44 process, as discussed with Dr. Castro by Committee/Physician advisor, and upon agreement between these parties, patient's status was concurrently changed to outpatient with notification to patient via GABRIEL form as previously documented by the RN BAO. Subsequent written notification was made to [facility] via email on day of status change. On this date a written letter of notification has been sent to Dr. Castro. Sia Flores RN CM
== END 2021-03-11 15:50 | disposition home or self-care (01) ==
LOC: SDC 17:37 → MS3 17:37
PROVIDERS: Admitting Provider Orthopaedic Surgery; PCP Family Medicine; Referring Provider Orthopaedic Surgery; Visit Provider Orthopaedic Surgery
PROC: 0SRD0JZ Replacement of Left Knee Joint with Synthetic Substitute, Open Approach (ICD-10-PCS; CPT 27447; principal; 2021-03-10 12:15)
DX: M17.12 Unilateral primary osteoarthritis, left knee (principal); E03.9 Hypothyroidism, unspecified; E11.9 Type 2 diabetes mellitus without complications; I10 Essential (primary) hypertension; Z79.899 Other long term (current) drug therapy; Z79.890 Hormone replacement therapy; I45.10 Unspecified right bundle-branch block; R94.31 Abnormal electrocardiogram [ECG] [EKG]; Z85.51 Personal history of malignant neoplasm of bladder; Z82.49 Family history of ischemic heart disease and other diseases of the circulatory system; M21.162 Varus deformity, not elsewhere classified, left knee; Z01.818 Encounter for other preprocedural examination; L57.0 Actinic keratosis; G25.81 Restless legs syndrome; Z96.651 Presence of right artificial knee joint
CPT/HCPCS: 01402; 27447; 64447; S2900; 36415; 73560; 80048; 82962; 82985; 83735; 84443; 85025; 85027; 85610; 85730; 86850; 86900; 86901; 87081; 87426; 88305; 88311; 93005; 96361; 96365; 96366; 97110; 97162; 97166; 97530; 97535; 99218; 99251; C1776; C9803; J7120; G0378; G0463; J0702

== ENCOUNTER 2021-04-08 10:00 | Outpatient (RCR) | payer MEDICARE, OTHER, SELFPAY ==
[2020-11-10 09:23] VITALS: BMI 30.4
--- NOTE | 2021-03-13 09:15 | HP.PTEVAL ---
Patient's Visit Information JOB RUGGIERO is a 80 year old F referred to Physical Therapy by Dr. Duncan Castro DO with a diagnosis of L TKA. Date of Evaluation: 03/12/21 Physical Therapist: David Mejia DPT - Visit Plan Frequency: 3x /Week Duration: 6 Weeks Plan: Start with L knee ROM, focus on end ranges. Work on edema control as needed, progress gait pattern, stair negotiation and functional mobility. Ice/vaso as needed. - Subjective Pt. is here today for her initial evaluation with diagnosis of L TKA. DOS: 03/10/21. Pt. staying in hospital for 1 day. Pt. arrives today with FWW with good tolerance to walking. Pt. reports being home for a 1 day, but not trying exercises yet. She denies blurred vision, ORTIZ, chest pain, no calf pain. Pt. reports sleeping well. She is known to this PT form previous knee replacement, she reports overall doing well. Pt. lives by her self. Pt. does have 1 flight of stairs to negotiate. Pt. has been doing her stairs well. She reports having some more soreness with this knee replacement compared to her last, but still minimal pain. Pt. is hopeful to get back to all recreational and work activities without increase in symptoms. - Pain L knee Pain Intensity (Out of 10): 4 Pain Intensity Range: 2, 7 - Objective POSTURE: Pt. has good posture in stance with slight lateral wt. shift to R side, Lacks TKE on L side. PALPATION: Pt. has tenderness throughout L knee, marked edema (expected) non pitting. Pt. has increased redness, but no signs of infection. She still has aqua cell bandage on for another few days. Will inspect incision once removed. NEURO: normal sensation and normal Achillies DTR bilaterally. ROM: L knee 0-4-90deg. Pt. reports increased tightness at end ranges of motion. Pt. has normal hip ROM bilat. MMT: RLE 5/5 throughout. LLE- ankle 5/5 throughout; knee- ext 11.5#, flexion 9.9#. HIp- 4/5 throughout, except hip flexion 4-/5. GAIT: Pt. ambulates with FWW with lack of L TKE and lacks knee flexion during swing phase. STAIRS: step to pattern with heavy use of HRs bilaterally. TUG 23.8sec with FWW. - Balance/Special Test Scores Lower Extremity Functional Score: 31 WOMAC Total Score: 54 WOMAC Percentatge: 43.7500 - Goals Goal 1:: LTG: Pt. to be I with HEP. Goal Time Frame: 4-6 Weeks Goal 2:: STG: Pt. to sleep throughout the night with out increase in symptoms. Goal Time Frame: 2-4 Weeks Goal 3:: STG: Pt. have increased L knee ROM to 0-0-120deg without increase in symptoms. Goal Time Frame: 2-4 Weeks Goal 4:: LTG: pt. to have full strength of LLE 5/5 without increase in symptoms. Goal Time Frame: 4-6 Weeks Goal 5:: LTG: Pt. to ambulate unlimited distances without AD without increase in symptoms. Goal Time Frame: 4-6 Weeks Goal 6:: LTG: Pt. to negotiate 1 flight of stairs with 1 HR with reciprocal pattern. Goal Time Frame: 4-6 Weeks - Rehabilitation Potential Physical Therapy Diagnosis: Pt. has signs and symptoms consistent with L TKA. Pt. has subsequent hypomobility, weakness, difficulty walking and increased pain. Pt. would benefit from PT to address the above limitations progressing back to all functional mobility with increased tolerance. Rehabilitation Potential: Excellent - Anticipated Interventions Patient/Client Instruction: Educate patient on: Condition, Plan of Care, Risk Factors, Benefits of Fitness Program For the Purpose of:: To improve safety, To improve health and function, To foster healthy habits, To improve decision making, To facilitate caregiver knowledge, To improve self management, To prevent re-injury, To improve ability to perform tasks related to life management Therapeutic Exercise to Include: Strength training, Power training, Balance training, Coordination, Body mechanics, Postural training, Flexibilty training, Gait and locomotor training, Passive ROM, Active ROM, Dynamic Lumbar Stabilization For the Purpose of:: To decrease pain, To decrease swelling/inflammation, To increase ROM, To improve nutrient delivery to tissue, To increase oxygenation perfusion, To improve muscle performance and motor function, To improve gait and locomotor functions, To improve health of tissue, To decrease soft tissue restriction, To increase flexibility/ROM Manual Therapy Techniques to Include: Scar massage, Mobilization, Soft tissue mobilization For the Purpose of:: To decrease pain, To decrease swelling/inflammation, To increase ROM, To improve nutrient delivery to tissue, To increase oxygenation perfusion Cryotherapy (ice pack, ice massage): Yes Vasopneumatic device: Yes For the Purpose of:: To decrease pain, To decrease swelling/inflammation, To increase ROM, To improve nutrient delivery to tissue Thank you for the opportunity to evaluate your patient. For Medicare and Medicare HMO plans, please review the plan of care and approve it. It will need to be FAXED BACK to us at [phone] for Medicare purposes. For Medicare only, by signing this I certify the plan of care. Please let me know if there are questions or concerns regarding this plan of care. Physician Signature: Date:
--- NOTE | 2021-04-08 11:02 | HP.PTREVAL_ITS ---
Dr. Duncan Castro, DO, It has been my pleasure to treat JOB RUGGIERO over the last 10 visits for L TKA. Please see the progress note below for an update on the physical therapy plan of care! Subjective: Pt. reports no pain currently. She is not using an AD. Pt. reports being 85% better overall. I would like for it to bend better. Objective/Function: TU.51sec no AD. ROM: 0-2-111deg AROM, PROM 0-0-119deg. Pt. has tightness and pain as limiting factor with end ranges of motion. GAIT: Pt. has good gait pattern. Pt. reports no increase in symptoms with walking , but is a little stiff with faster ambulation. STAIRS: Pt. is able to complete with reciprocal pattern with use of 1 HR. Mild soreness with descending and sli ght difficulty with controlled eccentric lowering. MMT: L knee: ext 35.3#, flexion 32.8#. slight edema non pitting, 1.5 cm difference at mid patella Plan Plan: Pt. is overall doing well. She is pleased with her minimal pain. She is having some slight limitations in end range flexion and extension, but is progressing. She plans to do her exercises on her own until following up with physician in 12 days. I stressed to her about continued stretching at home. Pt. consents. Balance/Gait/Functional tests - Balance/Special Test Scores Lower Extremity Functional Score: 56 WOMAC Total Score: 21 WOMAC Percentage: 78.1300 Goals Goal 1:: LTG: Pt. to be I with HEP. Goal Time Frame: 4-6 Weeks Goal Progress: Goal Met Goal 2:: STG: Pt. to sleep throughout the night with out increase in symptoms. Goal Time Frame: 2-4 Weeks Goal Progress: Progressing Goal 3:: STG: Pt. have increased L knee ROM to 0-0-120deg without increase in symptoms. Goal Time Frame: 2-4 Weeks Goal Progress: Progressing Goal 4:: LTG: pt. to have full strength of LLE 5/5 without increase in symptoms. Goal Time Frame: 4-6 Weeks Goal Progress: Progressing Goal 5:: LTG: Pt. to ambulate unlimited distances without AD without increase in symptoms. Goal Time Frame: 4-6 Weeks Goal Progress: Progressing Goal 6:: LTG: Pt. to negotiate 1 flight of stairs with 1 HR with reciprocal pattern. Goal Time Frame: 4-6 Weeks Anticipated Interventions Patient/Client Instruction: Educate patient on: Condition, Plan of Care, Risk Factors, Benefits of Fitness Program For the Purpose of:: To improve safety, To improve health and function, To foster healthy habits, To improve decision making, To facilitate caregiver knowledge, To improve self management, To prevent re-injury, To improve ability to perform tasks related to life management Therapeutic Exercise to Include: Strength training, Power training, Balance training, Coordination, Body mechanics, Postural training, Flexibilty training, Gait and locomotor training, Passive ROM, Active ROM, Dynamic Lumbar Stabilization For the Purpose of:: To decrease pain, To decrease swelling/inflammation, To increase ROM, To improve nutrient delivery to tissue, To increase oxygenation perfusion, To improve muscle performance and motor function, To improve gait and locomotor functions, To improve health of tissue, To decrease soft tissue restriction, To increase flexibility/ROM Manual Therapy Techniques to Include: Scar massage, Mobilization, Soft tissue mobilization For the Purpose of:: To decrease pain, To decrease swelling/inflammation, To increase ROM, To improve nutrient delivery to tissue, To increase oxygenation perfusion Cryotherapy (ice pack, ice massage): Yes Vasopneumatic device: Yes For the Purpose of:: To decrease pain, To decrease swelling/inflammation, To increase ROM, To improve nutrient delivery to tissue Please do not hesitate to contact me at [phone] by phone or if you have questions or concerns regarding this new plan of care! Sincerely, David Mejia DPT
--- NOTE | 2021-06-16 13:46 | HP.PTDCNRP_ITS ---
JOB RUGGIERO was seen in my office for initial evaluation on 03/12/21. The following Plan of Care was established for this patient: Initial Frequency: 3x /Week Initial Duration: 6 Weeks Patient/Client Instruction: Educate patient on: Condition, Plan of Care, Risk Factors, Benefits of Fitness Program For the Purpose of:: To improve safety, To improve health and function, To foster healthy habits, To improve decision making, To facilitate caregiver knowledge, To improve self management, To prevent re-injury, To improve ability to perform tasks related to life management Therapeutic Exercise to Include: Strength training, Power training, Balance tr aining, Coordination, Body mechanics, Postural training, Flexibilty training, Gait and locomotor training, Passive ROM, Active ROM, Dynamic Lumbar Stabilization For the Purpose of:: To decrease pain, To decrease swelling/inflammation, To increase ROM, To improve nutrient delivery to tissue, To increase oxygenation perfusion, To improve muscle performance and motor function, To improve gait and locomotor functions, To improve health of tissue, To decrease soft tissue restriction, To increase flexibility/ROM Manual Therapy Techniques to Include: Scar massage, Mobilization, Soft tissue mobilization For the Purpose of:: To decrease pain, To decrease swelling/inflammation, To increase ROM, To improve nutrient delivery to tissue, To increase oxygenation perfusion Cryotherapy (ice pack, ice massage): Yes Vasopneumatic device: Yes For the Purpose of:: To decrease pain, To decrease swelling/inflammation, To increase ROM, To improve nutrient delivery to tissue This patient was last seen in our office 04/08/21. Pertinent comments regarding their Physical therapy will appear below: Pt. was seen for her TKA. Pt. at our last visit reported being 85% better. Pt. was to follow up with physician then back to PT if needed. Pt. has not been seen since and will be DC from PT at this point in time. At this point I will be discontinuing this patient from physical therapy. I would be happy to see this patient again in the future if found appropriate by the physician. Thank you! David Mejia, DPT Balance/Gait/Functional tests - Balance/Special Test Scores Lower Extremity Functional Score: 56 WOMAC Total Score: 21 WOMAC Percentage: 78.1300
== END 2021-04-08 19:00 | disposition home or self-care (01) ==
LOC: PT 10:00
PROVIDERS: PCP Family Medicine; Referring Provider Orthopaedic Surgery; Visit Provider Orthopaedic Surgery
DX: Z47.1 Aftercare following joint replacement surgery (principal); Z96.652 Presence of left artificial knee joint
CPT/HCPCS: 97016; 97110; 97161; 97530

== ENCOUNTER → 2022-03-24 | Outpatient (CLI) | payer MEDICARE, OTHER, SELFPAY ==
[2022-03-24 12:45] LABS: Absolute Lymphocyte Count 1.54 X10^3/uL (0.83-4.51); Absolute Neutrophil Count 4.1 X10^3/uL (2.0-7.7); Basophil# 0.08 X10^3/uL; Basophil% 1.2 % (0-1); Eosinophil# 0.41 X10^3/uL; Eosinophils% 6.2 % (0-5); Hemoglobin 13.9 g/dL (12.0-15.0); Lymphocyte # 1.54 X10^3/ul (0.83-4.51); Lymphocyte % 23.1 % (19-41); Mean Corp Hgb Conc 33.1 g/dL (32-36); Mean Corpuscular Hgb 29.6 pg (27.0-32.0); Mean Corpuscular Volume 89.4 fL (81-99); Mean Platelet Vol. 10.4 fl (6.2-12.0); Monocyte# 0.52 X10^3/uL; Monocyte% 7.8 % (0-10); NRBC Flagged by Analyzer 0 % (0-5); Neutrophil # 4.09 X10^3/uL (2.7-7.7); Neutrophil % 61.4 % (47-70); Platelet Count 327 K/mm3 (150-450); RBC Distribution Width CV 12.8 % (11.6-14.6); White Blood Count 6.7 K/mm3 (4.4-11.0)
[2022-03-24 13:25] LABS: Anion Gap 7 (5-15); BUN 18 mg/dL (7-18); BUN/Creat Ratio 20.9 RATIO (10-20); Calcium,Total 9.4 mg/dL (8.5-10.1); Chloride 105 mmol/L (98-107); Creatinine, Serum 0.86 mg/dL (0.55-1.02); EST Glomerular Filtration Rate 67 mL/min (>60); Est Glom Filt Rate - Afr Amer 82 mL/min (>60); Glucose 110 mg/dL (74-106); Potassium 3.8 mmol/L (3.5-5.1); Sodium Level 141 mmol/L (136-145); Thyroid Stim Hormone (TSH) 1.21 uIU/mL (0.358-3.74)
== END | disposition home or self-care (01) ==
LOC: MTLAB 10:51
PROVIDERS: PCP Family Medicine; Referring Provider Family Medicine; Visit Provider Family Medicine
DX: E11.9 Type 2 diabetes mellitus without complications (principal); I10 Essential (primary) hypertension; E03.9 Hypothyroidism, unspecified
CPT/HCPCS: 36415; 80048; 84443; 85025

== ENCOUNTER → 2022-03-30 | Outpatient (CLI) | payer MEDICARE, OTHER, SELFPAY ==
--- NOTE | 2022-03-30 08:20 | BI_ITS ---
MAMMOGRAPHY - BILATERAL SCREENING REASON FOR EXAM: Female, 81 years old. Routine annual screening examination. PERTINENT HISTORY: Non-contributory. Remote bilateral excisional breast biopsies. TECHNIQUE: Digital bilateral breast guera (3D mammographic acquisition) in the CC and MLO projections. 2-D mediolateral oblique (MLO) and craniocaudad (CC) views of both breasts were obtained. CAD: Full Field Digital Mammography with Computer Added Detection was performed. COMPARISON: Comparison is made with prior study dated 01/15/2021 and 06/09/2019. FINDINGS: Breast Composition: The breasts are almost entirely fatty. There are no dominant masses or suspicious calcifications. Stable small benign-appearing bilateral axillary lymph nodes. No other significant abnormalities are identified. There has been no significant change since the prior study. BI/SCRN MAMM (CAD)W/GUERA BILAT IMPRESSION: Stable bilateral screening mammogram. Yearly follow-up mammogram recommended. (A) ASSESSMENT CATEGORY: BIRADS Category 2: Benign. A letter regarding these results will be sent to the patient by the facility within 30 days. Approximately 10% of breast cancers are not detected by mammography. A normal mammogram should not delay biopsy of a clinically suspicious abnormality. [id number] Electronically Signed: Yogesh Terrazas MD at 9:23 EDT ,
== END | disposition home or self-care (01) ==
LOC: OPBI 08:19
PROVIDERS: PCP Family Medicine; Visit Provider Family Medicine
DX: Z12.31 Encounter for screening mammogram for malignant neoplasm of breast (principal)
CPT/HCPCS: 77063; 77067

== ENCOUNTER → 2023-04-20 | Outpatient (CLI) | payer MEDICARE, OTHER, SELFPAY ==
[2023-04-20 12:36] LABS: Absolute Lymphocyte Count 1.23 X10^3/uL (0.83-4.51); Absolute Neutrophil Count 4.1 X10^3/uL (2.0-7.7); Basophil# 0.06 X10^3/uL; Eosinophil# 0.25 X10^3/uL; Hematocrit 40.9 % (37-47); Hemoglobin 12.8 g/dL (12.0-15.0); Lymphocyte # 1.23 X10^3/ul (0.83-4.51); Lymphocyte % 19.9 % (19-41); Mean Corp Hgb Conc 31.3 g/dL (32-36); Mean Corpuscular Hgb 28.4 pg (27.0-32.0); Mean Corpuscular Volume 90.7 fL (81-99); Mean Platelet Vol. 10.8 fl (6.2-12.0); Monocyte# 0.51 X10^3/uL; Monocyte% 8.3 % (0-10); NRBC Flagged by Analyzer 0 % (0-5); Neutrophil # 4.11 X10^3/uL (2.7-7.7); Neutrophil % 66.5 % (47-70); Platelet Count 300 K/mm3 (150-450); RBC Distribution Width CV 13.7 % (11.6-14.6); RBC Distribution Width SD 45.6 fl (35.1-43.9); Red Blood Count 4.51 M/mm3 (4.2-5.4); White Blood Count 6.2 K/mm3 (4.4-11.0)
[2023-04-20 12:58] LABS: ALB/GLOB Ratio 0.8 RATIO (0.9-2.4); AST(SGOT) 22 U/L (15-37); Alanine Aminotransfer ALT/SGPT 15 U/L (13-56); Albumin, Serum 3.4 g/dL (3.2-5.0); Alkaline Phosphatase 96 U/L (45-117); Anion Gap 3 (5-15); BUN 16 mg/dL (7-18); BUN/Creat Ratio 19.8 RATIO (10-20); Calcium,Total 9.1 mg/dL (8.5-10.1); Chloride 106 mmol/L (98-107); Creatinine, Serum 0.81 mg/dL (0.55-1.02); EST Glomerular Filtration Rate 72 mL/min (>60); Est Glom Filt Rate - Afr Amer 87 mL/min (>60); Ferritin 43 ng/mL (8-252); Glucose 118 mg/dL (74-106); Magnesium 2.5 mg/dL (1.6-2.6); Protein, Total 7.4 g/dL (6.4-8.2); Sodium Level 140 mmol/L (136-145)
[2023-04-20 13:00] LABS: Vitamin B12 282 pg/mL (211-911); Vitamin D,25 Hydroxy 32.7 ng/mL
[2023-04-20 13:25] LABS: Microalbumin,Random Urine 27.9 mg/L (NO RANGE EST.); Microalbumin:Creatinine Ratio 22.7 mg/g CRE (<30 mg/g CRE)
== END | disposition home or self-care (01) ==
LOC: MFPLAB 10:57
PROVIDERS: PCP Family Medicine; Visit Provider Family Medicine
DX: R25.2 Cramp and spasm (principal); E03.9 Hypothyroidism, unspecified; I10 Essential (primary) hypertension
CPT/HCPCS: 36415; 80053; 82043; 82306; 82570; 82607; 82728; 83735; 84443; 85025

== ENCOUNTER → 2023-04-29 | Outpatient (CLI) | payer MEDICARE, OTHER, SELFPAY ==
--- NOTE | 2023-04-29 08:35 | BI_ITS ---
MAMMOGRAPHY - BILATERAL SCREENING REASON FOR EXAM: Female, 82 years old. Routine annual screening examination. PERTINENT HISTORY: Non-contributory. Bilateral excisional breast biopsies. TECHNIQUE: Digital bilateral breast guera (3D mammographic acquisition) in the CC and MLO projections. 2-D mediolateral oblique (MLO) and craniocaudad (CC) views of both breasts were obtained. CAD: Full Field Digital Mammography with Computer Added Detection was performed. COMPARISON: Comparison is made with prior study date March 30, 2022 and January 15, 2021. FINDINGS: Breast Composition: The breasts are almost entirely fatty. There are no dominant masses or suspicious calcifications. Stable small benign appearing bilateral axillary lymph nodes. No other significant abnormalities are identified. There has been no significant change since the prior study. BI/SCRN MAMM (CAD)W/GUERA BILAT IMPRESSION: Stable bilateral screening mammogram. Yearly follow-up mammogram recommended. (A) ASSESSMENT CATEGORY: BIRADS Category 2: Benign. A letter regarding these results will be sent to the patient by the facility within 30 days. Approximately 10% of breast cancers are not detected by mammography. A normal mammogram should not delay biopsy of a clinically suspicious abnormality. [id number] Electronically Signed: Yogesh Terrazas MD at 9:45 EDT ,
== END | disposition home or self-care (01) ==
LOC: OPBI 08:33
PROVIDERS: PCP Family Medicine; Referring Provider Family Medicine; Visit Provider Family Medicine
DX: Z12.31 Encounter for screening mammogram for malignant neoplasm of breast (principal)
CPT/HCPCS: 77063; 77067

== ENCOUNTER 2023-07-15 08:41 | Day surgery (SDC) | payer MEDICARE, OTHER, SELFPAY ==
--- NOTE | 2023-07-15 | COLBX_PTH ---
PATHOLOGY RESULTS PATIENT: JOB RUGGIERO LOC: EN U#:[id number] AGE/SX: 82/F ROOM: RE07/15/[address]: Dr. Parmjit Peoples MD : [id number] BED: DIS: 07/15/2023 SPEC #: [id number] RECD: 07/15/23 12:58 STATUS: NITIN REAnnamarie #: [id number] NIA: 07/15/23 00:[address]: Parmjit Peoples DEPT: SURGICAL PATHOLOGY RECD BY: Alok Rosa ENTERED: 07/15/23 12:59 SP TYPE: COLON BX OTHR DR: Edie Pelletier DO Tissues: Ascending colon Ascending colon Ascending colon COLON BIOPSY Procedures: Surgery Specimen Level IV HEADER OPERATION: Colonoscopy with biopsies and polypectomies PRE-OP DIAGNOSIS: History of colonic polyps TISSUE SUBMITTED: A - Proximal ascending polyp #1, B - Proximal ascending polyps #2 and 3, C - Proximal ascending polyp #4, D - Hepatic flexure polyp MICROSCOPIC DIAGNOSIS A. Proximal ascending colon polyp #1, biopsy: Fragments of tubular adenoma. B. Proximal ascending colon polyp #2 and 3, biopsy: Fragments of tubular adenoma. C. Proximal ascending colon polyp #4, biopsy: Fragments of tubular adenoma. D. Colonic polyp at hepatic flexure, biopsy: Fragments of tubular adenoma. AM:caroline 07/18/2023 MICROSCOPIC DESCRIPTION Slides are reviewed. GROSS DESCRIPTION A - Received in fixative is one container labeled with the patient's name and designated proximal ascending polyp #1. The specimen consists of multiple irregular fragments of light bryant soft tissue that in aggregate measure 0.8 x 0.3 x 0.1 cm. The specimen is totally submitted in one cassette. B - Received in fixative is one container labeled with the patient's name and designated proximal ascending polyps #2 and 3. The specimen consists of multiple irregular fragments of light bryant soft tissue that in aggregate measure 1.0 x 0.5 x 0.1 cm. The specimen is totally submitted in one cassette. C - Received in fixative is one container labeled with the patient's name and designated proximal ascending polyp #4. The specimen consists of two irregular fragments of light bryant soft tissue that in aggregate measure 0.6 x 0.3 x 0.1 cm. The specimen is totally submitted in one cassette. D - Received in fixative is one container labeled with the patient's name and designated hepatic flexure polyp. The specimen consists of multiple irregular fragments of light bryant soft tissue that in aggregate measure 2.0 x 0.3 x 0.1 cm. The specimen is totally submitted in one cassette. / OLEG:caroline 07/15/23 TC:5 CPT: 51480 x4
--- NOTE | 2023-07-15 08:50 | HP.PCM_ITS ---
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 Required: No Is patient in pain?: No Allergies No Known Allergies Allergy (Verified 05/16/23 08:07) Medications hydrochlorothiazide 25 mg tablet 25 mg PO DAILY 05/24/18 [History Confirmed 05/16/23] amlodipine 5 mg-benazepril 10 mg capsule 1 cap PO DAILY BP 08/30/19 [History Confirmed 05/16/23] apple cider vinegar 600 mg capsule 1 tab PO DAILY 09/10/20 [History Confirmed 05/16/23] calcium carbonate 600 mg-vitamin D3 12.5 mcg (500 unit) capsule (Calcium 600 with Vitamin D3) 1 cap PO DAILY 09/10/20 [History Confirmed 05/16/23] vitamins A,C,T-hbrk-gtqsqd 4,296 mcg-226 mg-90 mg capsule (PreserVision AREDS) 1 cap PO BID 09/10/20 [History Confirmed 05/16/23] biotin 1 mg tablet 1 mg PO DAILY 09/16/20 [History Confirmed 05/16/23] polyvinyl alcohol-povidone (PF) 1.4 %-0.6 % eye drops in a dropperette (Refresh Classic (PF)) 1 ea OP BID 09/16/20 [History Confirmed 05/16/23] duloxetine 60 mg capsule,delayed release 60 mg PO BID 02/24/21 [History Confirmed 05/16/23] levothyroxine 75 mcg tablet 75 mcg PO DAILY 02/24/21 [History Confirmed 05/16/23] acetaminophen 500 mg tablet 1,000 mg (2 x 500 mg) PO Q6H PRN PRN pain #100 tabs 03/11/21 [Rx Confirmed 05/16/23] aspirin 81 mg tablet,delayed release (Julien Low Dose Aspirin) 81 mg PO BID #60 tabs 03/11/21 [Rx Confirmed 05/16/23] temazepam 15 mg capsule ea PO 04/20/21 [History Confirmed 05/16/23] PFSH Medical History (Updated 05/16/23 @ 08:05 by Yelitza Pacheco) Actinic keratosis Alcohol use Anxiety Arthritis Bladder cancer Essential hypertension History of pain when walking Hypothyroidism Left knee DJD Migraine headache Non-smoker Osteoarthritis of knees, bilateral Personal history of colonic polyps Restless legs Right bundle branch block (RBBB) Screening for intestinal cancer Thyroid disease Type 2 diabetes mellitus Wears contact lenses Surgical History (Updated 03/22/22 @ 09:31 by Shira Cabral) H/O lumpectomy H/O oophorectomy History of bladder surgery History of carpal tunnel release History of total right knee replacement Hx of cataract extraction Family History Father CVA (cerebral vascular accident) Heart diseaseMother Gallbladder cancerBrother CVA (cerebral vascular accident) Social History household members: spouse housing: house Smoking Status: Never smoker alcohol intake: never details: occasionally substance use type: does not use caffeine: Yes what type of physical activity do you participate in: none seatbelt use: always do you feel safe at home: Yes additional social history: -Tobi HPI HPI HPI: 82-year-old female. I have most recently assisted her May 30, 2018. That point I performed a colonoscopy for her. Hemorrhoids and multiple diverticula identified. A 3 mm polyp was found in the ascending colon. This was removed and pathology demonstrated a tubular adenoma. The patient presents back now for 5-year follow-up. Most recent surgical intervention suggest that Dr. Duncan Bella performed a left total knee arthroplasty for her on March 10, 2021 Her health has been steady. No bright red blood per rectum or melena. No abdominal pain. No unexpected weight loss. No family history of colon cancer. She denies DVT. She is not any anticoagulant. She does not participate in any particular routine exercise so we have encouraged that. ROS General General: No weight change, appetite, fatigue, colon cancer, breast cancer or weakness HEENT HEENT: No difficulty swallowing, eye injury, eye surgery, swollen glands or hoarseness Endo Endocrine: Yes thyroid disease; No diabetes mellitus, thyroid cancer, Hair loss, heat intolerance or cold intolerance Skin Skin: No rash or changing moles Breast Breast: No left breast lump, right breast lump, nipple discharge, breast pain, abnormal mammogram, abnormal US or breast enlargement Musc Musculoskeletal: Yes arthritis; No back problems, rheumatoid arthritis, gout or joint pain Cardio Cardiovascular: Yes high blood pressure; No murmur, pacemaker, heart disease, atrial fibrillation, heart attack, heart stent, palpitations, shortness of breat with exertion or chest pain Psych Psychiatric: Yes anxiety; No depression or hearing voices Resp Respiratory: No shortness of breath, No sleep apnea, No cough, No COPD, No asthma, No emphysema and No wheezing Gastro Gastrointestinal: No abdominal pain, No nausea or vomiting, No diarrhea, No constipation, No blood in stool, No acid reflux, No hemorrhoids, No ulcers, No gallbladder problem and No black,tarry stools Noble Hematologic: No blood thinners, No blood disorders, No bleeding, No anemia and No blood clots Neuro Neurologic: No system reviewed and no additional complaints, except as documented, No as per HPI, No abnormal gait, No abnormal hearing, No abnormal movements, No abnormal speech, No behavioral changes, No burning sensations, No confusion, No convulsions, No disequilibrium, No dizziness, No localized weakness, No frequent falls, No headache(s), No lack of coordination, No loss of vision, No memory loss, No numbness, No other visual disturbances, No radicular pain, No restless legs, No sensory deficit, No syncope, No tingling, No tremor(s), No weakness and No other Exam Const General: cooperative, comfortable and no acute distress Nutritional Appearance: obese [facility] Head: normal to inspection Eyes General: appearance normal, both eyes and all related structures Neck Neck: normal visual inspection Chest Chest palpation & inspection: normal inspection of the chest Resp Effort & Inspection: normal respiratory effort Auscultation: clear to auscultation bilaterally Cardio Rate: regular rate Rhythm: regular rhythm GI Inspection: normal to inspection Palpation: soft and no hepatosplenomegaly Skin General: no rashes or lesions noted Neuro General: patient alert, patient awake and patient oriented x3 Extrem General: no calf tenderness Psych Appearance: grossly normal Assessment and Plan Assessment and Plan (1) Personal history of colonic polyps: Status: Acute Plan: 82-year-old female who is enjoying a good quality of life and has a personal history of colon polyp in the ascending colon. I recommend to her colonoscopy with possible biopsy or polypectomy as indicated. She is aware of the technique, benefit, risk, alternatives. She has had an opportunity ask and have questions answered. We will schedule and proceed at her discretion. I appreciate the ongoing opportunity of assisting with her surgical care. Copy: Dr. Edie Peoples M.D., F.A.C.S I have examined the patient and the H&P has been reviewed. There are no clinical changes since date of exam. Parmjit Peoples M.D., F.A.C.S.
[2023-07-15 09:09] VITALS: BP 137/81; PULSE 103; RESP 18; TEMP 36.8; O2SAT 94; BMI 32.3
--- OUTSIDE RECORDS SUMMARY | 2023-07-15 09:11 | XMS RPT_ITS | CCD ---
Author Name Unknown Address [address] [place] [address] Organization [facility] Encounters Encounter Date Encounter Type Care Provider Facility Start: 03-15-2017 End: 03-15-2017 Ambulatory Facility:[facility] Summary Purpose Family History No Family History Records Found Advance Directives No Advanced Directives Records Found Additional Source Comments INFORMATION SOURCE (unrecogn ized section and content) FOR RECORDS PERTAINING TO PATIENTS WHO ARE OR HAVE BEEN ENROLLED IN A CHEMICAL DEPENDENCY/SUBSTANCEABUSE PROGRAM, SOME INFORMATION MAY BE OMITTED. This clinical summary was aggregated from multiple sources. Caution should be exercised in using it in the provision of clinical care. This summary normalizes information from multiple sources, and as a consequence, information in this document may materially change the coding, format and clinical context of patient data. In addition, data may be omitted in some cases. CLINICAL DECISIONS SHOULD BE BASED ON THE PRIMARY CLINICAL RECORDS. [employer] provides no warranty or guarantee of the accuracy or completeness of information in this document.
[2023-07-15] MEDS: Lactated Ringers 1,000 ML 15 ML IV (09:20)
[2023-07-15 09:43] LABS: Bedside Glucose 126 mg/dL (74-106)
[2023-07-15] MEDS: Ampicillin 2 GM in 0.9% Normal Saline (100mL MB+) 100 ML IV (10:11)
[2023-07-15 10:52] VITALS: BP 105/64; BP 137/81; PULSE 70; RESP 16; TEMP 36.4; O2SAT 99
--- NOTE | 2023-07-15 10:52 | OP.CCLET_ITS ---
07/15/2023 Edie Pelletier, Do Re : Colonoscopy procedure for Radha Bermudez Dear Prabhu This procedure was performed on Saturday, July 15, 2023. My impressions and recommendations are as follows: Impressions : - Preparation of the colon was fair. - Hemorrhoids found on perianal exam. - One 6 mm polyp in the proximal ascending colon, removed with a hot snare. Resected and retrieved. - One 5 mm polyp in the proximal ascending colon, removed with a cold biopsy forceps. Resected and retrieved. - One 6 mm polyp in the proximal ascending colon, removed with a hot snare. Resected and retrieved. - One 3 mm polyp in the proximal ascending colon, removed with a cold biopsy forceps. Resected and retrieved. - One 6 mm polyp at the hepatic flexure, removed with a hot snare. Resected and retrieved. - Diverticulosis in the entire examined colon. Recommendations : - Discharge patient to home. - Resume previous diet. - Continue present medications. - Repeat colonoscopy in 3 years for surveillance. - Telephone my office for pathology results in 1 week. My findings are described in the full procedure note, which is enclosed. If I can be of further assistance, please feel free to contact me at Doctor phone number(s): Work: . Sincerely, Parmjit Peoples MD 07/15/2023 10:51:59 AM This report has been signed electronically.
--- NOTE | 2023-07-15 10:52 | OP.COLON_ITS ---
Patient Name: Radha Bermudez Procedure Date: 07/15/2023 10:05 AM Date of : 1940 Age: 82 Procedure: Colonoscopy Indications: High risk colon cancer surveillance: Personal history of colonic polyps Providers: Parmjit Peoples MD Medicines: See the Anesthesia note for documentation of the administered medications Patient Profile: Last Colonoscopy: May 2018. Complications: No immediate complications. Procedure: Pre-Anesthesia Assessment: - Prior to the procedure, a History and Physical was performed, and patient medications and allergies were reviewed. The patient's tolerance of previous anesthesia was also reviewed. The risks and benefits of the procedure and the sedation options and risks were discussed with the patient. All questions were answered, and informed consent was obtained. Prior Anticoagulants: The patient has taken no anticoagulant or antiplatelet agents. ASA Grade Assessment: II - A patient with mild systemic disease. After reviewing the risks and benefits, the patient was deemed in satisfactory condition to undergo the procedure. After I obtained informed consent, the scope was passed under direct vision. Throughout the procedure, the patient's blood pressure, pulse, and oxygen saturations were monitored continuously. The colonoscope was introduced through the anus and advanced to the cecum, identified by appendiceal orifice and ileocecal valve. The colonoscopy was somewhat difficult. The patient tolerated the procedure well. The quality of the bowel preparation was fair. The ileocecal valve and the appendiceal orifice were photographed. Scope In: 10:12:35 AM Scope Withdrawal Time 0 hours 23 minutes 40 seconds Scope Out: 10:44:42 AM Total Procedure Duration Time 0 hours 32 minutes 7 seconds Findings: Hemorrhoids were found on perianal exam. A 6 mm polyp was found in the proximal ascending colon. The polyp was sessile. The polyp was removed with a hot snare. Resection and retrieval were complete. A 5 mm polyp was found in the proximal ascending colon. The polyp was sessile. The polyp was removed with a cold biopsy forceps. Resection and retrieval were complete. A 6 mm polyp was found in the proximal ascending colon. The polyp was sessile. The polyp was removed with a hot snare. Resection and retrieval were complete. A 3 mm polyp was found in the proximal ascending colon. The polyp was sessile. The polyp was removed with a cold biopsy forceps. Resection and retrieval were complete. A 6 mm polyp was found in the hepatic flexure. The polyp was sessile. The polyp was removed with a hot snare. Resection and retrieval were complete. Multiple diverticula were found in the entire colon. Impression: - Preparation of the colon was fair. - Hemorrhoids found on perianal exam. - One 6 mm polyp in the proximal ascending colon, removed with a hot snare. Resected and retrieved. - One 5 mm polyp in the proximal ascending colon, removed with a cold biopsy forceps. Resected and retrieved. - One 6 mm polyp in the proximal ascending colon, removed with a hot snare. Resected and retrieved. - One 3 mm polyp in the proximal ascending colon, removed with a cold biopsy forceps. Resected and retrieved. - One 6 mm polyp at the hepatic flexure, removed with a hot snare. Resected and retrieved. - Diverticulosis in the entire examined colon. Recommendation: - Discharge patient to home. - Resume previous diet. - Continue present medications. - Repeat colonoscopy in 3 years for surveillance. - Telephone my office for pathology results in 1 week. Procedure Code(s): --- Professional --- 02554, Colonoscopy, flexible; with removal of tumor(s), polyp(s), or other lesion(s) by snare technique [id number], 59, Colonoscopy, flexible; with biopsy, single or multiple Diagnosis Code(s): --- Professional --- Z86.010, Personal history of colonic polyps K64.9, Unspecified hemorrhoids D12.2, Benign neoplasm of ascending colon D12.3, Benign neoplasm of transverse colon (hepatic flexure or splenic flexure) K57.30, Diverticulosis of large intestine without perforation or abscess without bleeding CPT copyright 2021 [employer]. All rights reserved. The codes documented in this report are preliminary and upon retail coverage merchandiser lead review may be revised to meet current compliance requirements. Parmjit Peoples MD 07/15/2023 10:51:59 AM This report has been signed electronically. Number of Addenda: 0 Note Initiated On: 07/15/2023 10:05 AM
[2023-07-15 10:57] VITALS: BP 111/91; BP 137/81; PULSE 69; RESP 16; O2SAT 98
[2023-07-15 11:02] VITALS: BP 110/71; BP 137/81; PULSE 70; RESP 16; O2SAT 99
[2023-07-15 11:08] VITALS: BP 119/70; BP 137/81; PULSE 71; RESP 16; TEMP 36.4; O2SAT 99
[2023-07-15 11:24] VITALS: BP 137/81
== END 2023-07-15 11:40 | disposition home or self-care (01) ==
LOC: EN 08:43 → AC 08:45
PROVIDERS: PCP Family Medicine; Referring Provider Family Medicine; Visit Provider Surgery
PROC: 0DJD8ZZ Inspection of Lower Intestinal Tract, Via Natural or Artificial Opening Endoscopic (ICD-10-PCS; CPT 45378; principal; 2023-07-15 09:40)
DX: Z12.11 Encounter for screening for malignant neoplasm of colon (principal); E11.9 Type 2 diabetes mellitus without complications; D12.2 Benign neoplasm of ascending colon; D12.3 Benign neoplasm of transverse colon; I10 Essential (primary) hypertension; K57.30 Diverticulosis of large intestine without perforation or abscess without bleeding; K64.9 Unspecified hemorrhoids; E66.9 Obesity, unspecified; F41.9 Anxiety disorder, unspecified; E07.9 Disorder of thyroid, unspecified; Z79.899 Other long term (current) drug therapy; Z96.652 Presence of left artificial knee joint; Z86.010 Personal history of colon polyps
CPT/HCPCS: 45385; 45380; 82962; 88305; J7120; J2405

== ENCOUNTER → 2024-04-17 | Outpatient (CLI) | payer MEDICARE, OTHER, SELFPAY ==
[2024-04-17 13:00] LABS: Absolute Lymphocyte Count 1.75 X10^3/uL (0.83-4.51); Absolute Neutrophil Count 4.2 X10^3/uL (2.0-7.7); Basophil# 0.04 X10^3/uL; Basophil% 0.6 % (0-1); Eosinophil# 0.42 X10^3/uL; Eosinophils% 5.9 % (0-5); Hematocrit 39.6 % (37-47); Hemoglobin 12.8 g/dL (12.0-15.0); Lymphocyte # 1.75 X10^3/ul (0.83-4.51); Lymphocyte % 24.6 % (19-41); Mean Corp Hgb Conc 32.3 g/dL (32-36); Mean Corpuscular Hgb 28.4 pg (27.0-32.0); Monocyte# 0.64 X10^3/uL; NRBC Flagged by Analyzer 0 % (0-5); Neutrophil # 4.23 X10^3/uL (2.7-7.7); Neutrophil % 59.3 % (47-70); Platelet Count 209 K/mm3 (150-450); RBC Distribution Width CV 13.1 % (11.6-14.6); RBC Distribution Width SD 42.5 fl (35.1-43.9); White Blood Count 7.1 K/mm3 (4.4-11.0)
[2024-04-17 13:08] LABS: ALB/GLOB Ratio 0.8 RATIO (0.9-2.4); AST(SGOT) 23 U/L (15-37); Alanine Aminotransfer ALT/SGPT 16 U/L (13-56); Albumin, Serum 3.4 g/dL (3.2-5.0); Alkaline Phosphatase 101 U/L (45-117); Anion Gap 7 (5-15); BUN 20 mg/dL (7-18); BUN/Creat Ratio 24.6 RATIO (10-20); Calcium,Total 9.5 mg/dL (8.5-10.1); Chloride 106 mmol/L (98-107); Creatinine, Serum 0.81 mg/dL (0.55-1.02); EST Glomerular Filtration Rate 72 mL/min (>60); Est Glom Filt Rate - Afr Amer 87 mL/min (>60); Glucose 120 mg/dL (74-106); Potassium 3.6 mmol/L (3.5-5.1); Protein, Total 7.4 g/dL (6.4-8.2); Sodium Level 141 mmol/L (136-145)
== END | disposition home or self-care (01) ==
PROVIDERS: PCP Family Medicine; Referring Provider Family Medicine; Visit Provider Family Medicine
DX: E03.9 Hypothyroidism, unspecified (principal); E55.9 Vitamin D deficiency, unspecified
CPT/HCPCS: 36415; 80053; 82306; 82607; 84443; 85025

== ENCOUNTER → 2024-05-22 | Outpatient (CLI) | payer MEDICARE, OTHER, SELFPAY ==
--- NOTE | 2024-05-22 10:17 | BI_ITS ---
MAMMOGRAPHY - BILATERAL SCREENING REASON FOR EXAM: Female, 83 years old. Routine annual screening examination. PERTINENT HISTORY: Non-contributory. History of prior bilateral excisional breast biopsies. TECHNIQUE: Digital bilateral breast guera (3D mammographic acquisition) in the CC and MLO projections. 2-D mediolateral oblique (MLO) and craniocaudad (CC) views of both breasts were obtained. CAD: Full Field Digital Mammography with Computer Added Detection was performed. COMPARISON: Comparison is made with prior study April 29, 2023 and March 30, 2022 FINDINGS: Breast Composition: The breasts are almost entirely fatty. There are no dominant masses or suspicious calcifications. Stable small benign-appearing bilateral axillary lymph nodes. No other significant abnormalities are identified. There has been no significant change since the prior study. BI/SCRN MAMM (CAD)W/GUERA BILAT IMPRESSION: Stable bilateral screening mammogram. Yearly follow-up mammogram recommended. (A) ASSESSMENT CATEGORY: BIRADS Category 2: Benign. A letter regarding these results will be sent to the patient by the facility within 30 days. Approximately 10% of breast cancers are not detected by mammography. A normal mammogram should not delay biopsy of a clinically suspicious abnormality. [id number] Electronically Signed: Yogesh Terrazas MD at 11:10 EST ,
== END | disposition home or self-care (01) ==
LOC: OPBI 10:16
PROVIDERS: PCP Family Medicine; Referring Provider Family Medicine; Visit Provider Family Medicine
DX: Z12.31 Encounter for screening mammogram for malignant neoplasm of breast (principal)
CPT/HCPCS: 77063; 77067

== ENCOUNTER → 2024-07-26 | Outpatient (CLI) | payer MEDICARE, OTHER, SELFPAY ==
--- NOTE | 2024-07-26 07:42 | BD_ITS ---
STUDY: DUAL ENERGY X-RAY ABSORPTIOMETRY / DXA REASON FOR EXAM: Female, 83 years old. 627.8Menopausal postmenopausal BONE DENSITY REASON FOR EXAM TECHNIQUE: Bone Mineral Density (BMD) measurements of lumbar spine and bilateral hips were obtained. COMPARISON: Comparison is made with prior examination dated January 15, 2021. FINDINGS: Lumbar Spine (L1-L4): g/cm2 (1.243) / T-score (2.4) / Z-score (5.0) Findings are suggestive of normal bone density with a low fracture risk. Left Femur Total: g/cm2 (0.983) / T-score (0.3) / Z-score (2.5) Left Femoral Neck: g/cm2 (0.791) / T-score (-0.5) / Z-score (1.9) Right Femur Total: g/cm2 (1.011) / T-score (0.6) / Z-score (2.8) Right Femoral Neck: g/cm2 (0.849) / T-score (0.0) / Z-score (2.4) The T-Scores on the most recent prior examination were: Lumbar Spine (L1-L4): There has been worsening of bone density since the previous examination. Left Femur Total: which represents an improvement of 0.6%. Right Femur Total: which represents an improvement of 5%. BD/Dexa Bone Density Study IMPRESSION: The patient is considered normal as outlined below according to World Werner Organization (WHO) criteria with a low fracture risk. There has been improvement of bone density since the previous examination. Reference Information: The T-score is the number of standard deviations above or below the standard which is normal for young adults at their peak bone mineral density. The World Health Organization (WHO) interprets the T-scores as follows: Above -1 Normal bone density Between -1 and -2.5 Osteopenia Equal to / or below -2.5 Osteoporosis As a practical clinical guideline, osteopenia may be graded as follows: Mild -1 through -1.5 Moderate -1.6 through -2.0 Severe -2.1 through -2.4 The Z-score is the number of standard deviations above or below age-matched controls. A Z-score of less than -1.5 would be considered abnormal. References: 1. NIH Osteoporosis and Related Bone Diseases www osteo.org 2. International Society for Clinical Densitometry www iscd.org 3. National Osteoporosis Foundation www nof.org Electronically Signed: Yogesh Terrazas MD at 13:53 EST ,
== END | disposition home or self-care (01) ==
PROVIDERS: PCP Family Medicine; Referring Provider Family Medicine; Visit Provider Family Medicine
DX: N95.9 Unspecified menopausal and perimenopausal disorder (principal)
CPT/HCPCS: 77080

== ENCOUNTER → 2024-08-14 | Outpatient (CLI) | payer MEDICARE, OTHER, SELFPAY | END | disposition home or self-care (01) | LOC: MFPLAB 16:12 | PROVIDERS: PCP Family Medicine; Referring Provider Family Medicine; Visit Provider Family Medicine | DX: E03.9 Hypothyroidism, unspecified (principal) | CPT/HCPCS: 36415; 84443 ==

== ENCOUNTER → 2025-02-14 | Outpatient (CLI) | payer MEDICARE, OTHER, SELFPAY ==
[2025-02-14 16:07] LABS: Hematocrit 39.5 % (37-47); Hemoglobin 12.7 g/dL (12.0-15.0); Mean Corp Hgb Conc 32.2 g/dL (32-36); Mean Corpuscular Volume 89.4 fL (81-99); Mean Platelet Vol. 11.1 fl (6.2-12.0); Platelet Count 296 K/mm3 (150-450); RBC Distribution Width CV 13.2 % (11.6-14.6); RBC Distribution Width SD 43.6 fl (35.1-43.9); Red Blood Count 4.42 M/mm3 (4.2-5.4); White Blood Count 6.7 K/mm3 (4.4-11.0)
[2025-02-14 16:28] LABS: AST(SGOT) 27 U/L (<=31); Alanine Aminotransfer ALT/SGPT 11 U/L (<=34); Albumin, Serum 4.1 g/dL (3.4-4.8); Alkaline Phosphatase 102 U/L (35-104); Anion Gap 11 (5-15); BUN 13 mg/dL (4-19); BUN/Creat Ratio 17.4 RATIO (10-20); Calcium,Total 9.7 mg/dL (7.6-11.0); Carbon Dioxide 27.7 mmol/L (21.0-32.0); Chloride 103 mmol/L (98-108); Cholesterol 232 mg/dL (<=200); Globulin 3.2 g/dL (2.2-4.2); Glucose 104 mg/dL (70-99); Low Density Lipoprotein Calc. 152 mg/dL; Potassium 4.7 mmol/L (3.3-5.1); Triglycerides 155 mg/dL; Very Low Density Lipoprotein 31 mg/dL (5-40); Vitamin B12 783 pg/mL (180-914); Vitamin D,25 Hydroxy 34.6 ng/mL (30-100); cholesterol:hdl ratio screen 4.70
--- OUTSIDE RECORDS SUMMARY | 2025-02-14 19:10 | XMS RPT_ITS | CCD ---
Author Organization [facility] Care Team Providers Care Sr. Director Product Management Name Role Phone Dr. Jason Morton Primary Care Provider Dr. Jason Morton Referring Provider Dr. Duncan Castro Attending Provider Dr. Carlos Knight Attending Provider [phone]([facility])[phone] DO Edie Pelletier Primary Care Provider [phone] DO Edie Pelletier Referring Provider 1([facility])[phone] Dr. Parmjit Peoples Attending Provider Dr. Parmjit Peoples Other Provider Unavailable Primary Care Provider Unavailabl e No Family, Physician Primary Care Unavailable BELL WEEMS Attending Unavailable BELL WEEMS Referring Unavailable No Family, Physician Primary Care Unavailable Casandra Ordoñez MD Primary Care Provider [phone] Casandra Ordoñez MD Referring Provider Dr. Duncan Castro DO Attending Provider Dr. Carlos Knight MD Attending Provider Duncan Castro Attending Unavailable Smita, Chalon Referring Unavailable Smita, Chalon Primary Care Unavailable Carlos Knight Attending Unavailable Smita, Chalon Primary Care Unavailable Smita, Chalon Primary Care Unavailable Smita, Chalon Attending Unavailable Smita, Chalon Referring Unavailable Smita, Chalon Primary Care Unavailable Smita, Chalon Attending Unavailable Smita, Chalon Referring Unavailable Smita, Chalon Primary Care Unavailable Smita, Chalon Attending Unavailable Smita, Chalon Referring Unavailable Smita, Chalon Primary Care Unavailable Smita, Chalon Attending Unavailable Smita, Chalon Referring Unavailable Medications Current Medications Medication Drug Class(es) Dates Sig (Normalized) Sig (Original) acetaminophen 500 mg oral tablet (20 sources) Start: 03-11-2021 take 2 tablets by mouth every six hours as needed for pain Acetaminophen 500 mg Tablet Active 1000 mg PO EVERY 6 HOURS NEEDED as needed for pain 100 0 March 11, 2021 7:11am Start: 03-11-2021 take 1000 mg by mout h every six hours as needed Acetaminophen Active 1000 MG PO EVERY 6 HOURS NEEDED 100 March 11, 2021 6:11am Start: 10-01-2020 End: 03-11-2021 take 2 tablets by mouth every eight hours as needed for pain Acetaminophen 500 MG tablet Discontinued 1000 mg PO EVERY 8 HOURS as needed for Pain February 17, 2021 2:27pm March 11, 2021 7:10am Start: 10-01-2020 End: 03-11-2021 take 1000 mg by mouth every eight hours Acetaminophen Discontinued 1000 MG PO EVERY 8 HOURS February 17, 2021 1:27pm March 11, 2021 6:10am amLODIPine 5 mg / benazepril hydrochloride 10 mg oral capsule (7 sources) Dihydropyridine Calcium Channel Tamir, Angiotensin Converting Enzyme Inhibitor Start: 08-30-2019 Amlodipine-Benazepril 5-10 mg capsule Active 1 NMA PO DAILY August 30, 2019 1:00am BP Start: 08-30-2019 take 1 capsule by mo uth once daily Amlodipine-Benazepril Active 1 CAP PO DAILY August 30, 2019 12:00am apple cider vinegar 600 mg oral capsule (7 sources) Start: 09-10-2020 take 1 capsule by mouth once daily Apple Cider Vinegar 600 mg capsule Active 1 {tbl} PO DAILY September 10, 2020 1:00am aspirin 81 mg delayed release oral tablet (4 sources) Platelet Aggregation Inhibitor, Nonsteroidal Anti-inflammatory Drug Start: 03-11-2021 take 1 tablet by mouth twice daily Aspirin (Aspirin Low Dose) 81 mg tablet,delayed release (DR/EC) Active 81 MG PO TWICE A DAY 60 March 11, 2021 12:00am take as blood clot prevention after surgery biotin 1 mg oral tablet (7 sources) Start: 09-16-2020 take 1 tablet by mouth once daily Biotin 1 MG tablet Active 1 mg PO DAILY September 16, 2020 12:00am calcium carbonate 1500 mg / cholecalciferol 500 unt oral capsule (7 sources) Vitamin D Start: 09-10-2020 Calcium Carbonate-Vitami n D3 (Calcium 600 With Vitamin D3) 600 mg(1,500mg) -500 unit capsule Active 1 NMA PO DAILY September 10, 2020 1:00am Start: 09-10-2020 take [address] [facility] once daily Calcium Carbonate-Vitamin D3 (Calcium 600 With Vitamin D3) 600 mg(1,500mg) -500 unit capsule Active 1 CAP PO DAILY September 10, 2020 12:00am DULoxetine 60 mg delayed release oral capsule (20 sources) Serotonin and Norepinephrine Reuptake Inhibitor Start: 02-24-2021 take 1 capsule by mouth at bedtime Duloxetine 60 mg capsule,delayed release(DR/EC) Active 60 mg PO AT BEDTIME February 24, 2021 12:00am Start: 05-24-2018 End: 02-24-2021 Duloxetine 30 mg capsule,del ayed release(DR/EC) Discontinued 80 mg PO DAILY August 30, 2019 11:15am February 24, 2021 2:40pm Start: 05-24-2018 End: 02-24-2021 take 80 mg by mouth once daily Duloxetine Discontinued 80 MG PO DAILY August 30, 2019 10:15am February 24, 2021 1:40pm hydroCHLOROthiazide 25 mg oral tablet (7 sources) Thiazide Diuretic Start: 05-24-2018 take 1 tablet by mouth once daily Hydrochlorothiazide 25 MG tablet Active 25 mg PO DAILY May 24, 2018 1:00am levothyroxine sodium 0.075 mg oral tablet (20 sources) l-Thyroxine Start: 02-24-2021 take 1 tablet by mouth once daily Levothyroxine 75 mcg tablet Active 75 ug PO DAILY February 24, 2021 12:00am Start: 08-30-2019 End: 02-24-2021 Levothyroxine 50 mcg tablet Discontinued 75 ug PO DAILY August 30, 2019 11:16am February 24, 2021 2:36pm Start: 08-30-2019 End: 02-24-2021 take 75 ug by mouth once daily Levothyroxine Discontin ued 75 MCG PO DAILY August 30, 2019 10:16am February 24, 2021 1:36pm Start: 05-24-2018 End: 08-30-2019 take 1 tablet by mouth once daily Levothyroxine 50 MCG tablet Discontinued 50 ug PO DAILY May 24, 2018 1:00am August 30, 2019 11:17am Magnesium (2 sources) Start: 01-14-2025 take 1 tablet by mouth once daily Magnesium 200 mg tablet Active 200 mg PO daily January 14, 2025 12:00am polyvinyl alcohol 0.014 ml/ml / povidone 6 mg/ml ophthalmic solution (7 sources) Start: 09-16-2020 Polyvinyl Alcohol-Povidon(Pf) (Refresh Classic (Pf)) 1 EACH dropperette Active 1 NMA OP TWICE A DAY September 16, 2020 12:00am temazepam 15 mg oral capsule (4 sources) Benzodiazepine Start: 04-20-2021 Temazepam Acti ve EACH PO April 20, 2021 12:00am valerian root extract 1000 mg oral capsule (3 sources) Start: 07-13-2023 take 1 capsule by mouth at bedtime Valerian Root 1,000 mg capsule Active 2400 mg PO AT BEDTIME July 13, 2023 1:00am Start: 07-13-2023 take 2400 mg by mouth at bedti me Valerian Root Active 2400 MG PO AT BEDTIME July 13, 2023 12:00am Vitamin B Complex (B Complex-Vitamin B12) tablet (3 sources) Start: 07-13-2023 Vitamin B Comp christel (B Complex-Vitamin B12) tablet Active 1 {tbl} PO DAILY July 13, 2023 1:00am Start: 07-13-2023 take 1 tablet by arnie once daily Vitamin B Complex (B Complex-Vitamin B12) tablet Active 1 TABLET PO DAILY July 13, 2023 12:00am Vitamins A,C,D-Cgri-Jnayyp (Preservision Areds) 14,320-226-200 pdtm-yl-nocm capsule (7 sources) Start: 09-10-2020 Vitamins A,C,E -Zinc-Copper (Preservision Areds) 14,320-226-200 fiqj-tl-zwjf capsule Active 1 NMA PO TWICE A DAY September 10, 2020 1:00am Start: 09-10-2020 take [address] [facility] twice daily Vitamins A,C,D-Cwgx-Morttn (Preservision Areds) 14,320-226-200 gexc-xd-cgvp capsule Active 1 CAP PO TWICE A DAY September 10, 2020 12:00am Start: 09-10-2020 take 1 capsule by [facility] twice daily Vitamins A,C,Z-Owxd-Gsrhul (Preservision Areds) 14,320-226-200 qvar-ee-zhpt capsule Active 1 CAP PO TWICE A DAY September 10, 2020 1:00am Completed/Discontinued Medications Medication Drug Class(es) Dates Sig (Normalized) Sig (Original) amLODIPine 5 mg oral tablet (7 sources) Dihydropyridine Calcium Channel Tamir Start: 05-24-2018 End: 08-30-2019 take 1 tablet by mouth once daily Amlodipine 5 MG tablet Discontinued 5 mg PO DAILY May 24, 2018 1:00am August 30, 2019 11:16am amoxicillin 500 mg oral tablet (5 sources) Penicillin-class Antibacterial Start: 08-25-2022 End: 05-16-2023 take 4 tablets by mouth every hour Amoxicillin 500 mg tablet Discontinued 500 mg PO ONCE 4 1 August 25, 2022 1:00am May 16, 2023 9:07am take 4 tabs within 1 hr prior to dental procedure. apixaban 2.5 mg oral tablet (7 sources) Factor Xa Inhibitor Start: 10-01-2020 End: 02-02-2021 take 1 tablet by mouth twice daily Apixaban 2.5 MG tablet Discontinued 2.5 mg PO TWICE A DAY 28 0 October 01, 2020 12:00am February 02, 2021 10:33am Calcium Carb-Mag Ox-Zinc Sulf (7 sources) Start: 05-24-2018 End: 08-30-2019 take 1 tablet by mouth once daily Calcium Carb-Mag Ox-Zinc Sulf 1 EACH tablet Discontinued 1 NMA PO DAILY May 24, 2018 1:00am August 30, 2019 11:16am Start: 05-24-2018 End: 08-30-2019 Calcium Carb-Mag Ox-Zinc Sul f Discontinued 1 EACH PO DAILY May 24, 2018 12:00am August 30, 2019 10:16am Start: 05-24-2018 End: 08-30-2019 Calcium Carb-Mag Ox-Zinc Sul f Discontinued 1 EACH PO DAILY May 24, 2018 1:00am August 30, 2019 11:16am cephalexin 500 mg oral capsule (7 sources) Cephalosporin Antibacterial Start: 12-08-2020 End: 02-02-2021 take 4 capsules by mouth every hour as needed Cephalexin 500 mg capsule Discontinued 500 mg PO ONCE as needed for Prophylactic 4 0 December 08, 2020 12:00am February 02, 2021 10:34am Artificial knee joint present Presence of unspecified artificial knee joint Take 4 caps 1 hour prior to dental work. oxybutynin chloride 5 mg oral tablet (7 sources) Cholinergic Muscarinic Antagonist Start: 05-24-2018 End: 09-10-2020 take 1 tablet by mouth once daily Oxybutynin Chloride 5 MG tablet Discontinued 5 mg PO DAILY May 24, 2018 1:00am September 10, 2020 9:52am oxyCODONE hydrochloride 5 mg oral tablet (7 sources) Opioid Agonist Start: 10-01-2020 End: 02-02-2021 take 5-10 mg by mouth every four hours as needed for pain Oxycodone 5 MG tablet Discontinued 5 - 10 mg PO EVERY 4 HOURS NEEDED as needed for Pain Score 6-10 50 0 October 01, 2020 February 02, 2021 10:34am Other acute postprocedural pain Vit C,S-Rq-Vogjq-Lutein -Zeaxan (5 sources) Start: 05-24-2018 End: 08-30-2019 Vit C,X-Sd-Dnyfl-Lutein -Zeaxan Discontinued 1 EACH PO TWICE A DAY May 24, 2018 12:00am August 30, 2019 10:16am Start: 05-24-2018 End: 08-30-2019 Vit C,A-Re-Swuft-Lutein-Zeax an Discontinued 1 EACH PO TWICE A DAY May 24, 2018 1:00am August 30, 2019 11:16am Vit C,Z-Vw-Phyrj-Lutein-Zeaxan 1 EACH capsule (2 sources) Start: 05-24-2018 End: 08-30-2019 take 1 capsule by mouth twice daily Vit C,B-Ob-Rrduw-Lutein-Zeaxan 1 EACH capsule Discontinued 1 NMA PO TWICE A DAY May 24, 2018 1:00am August 30, 2019 11:16am vitamin b12 0.5 mg oral tablet (7 sources) Vitamin B12 Start: 05-24-2018 End: 08-30-2019 take 2 tablets by mouth once daily Cyanocobalamin (Vitamin B-12) 500 MCG tablet Discontinued 1000 ug PO DAILY@0800 May 24, 2018 1:00am August 30, 2019 11:16am Start: 05-24-2018 End: 08-30-2019 take 1000 ug by mouth once daily Cyanocobalamin (Vitamin B-12) Discontinued 1000 MCG PO DAILY@0800 May 24, 2018 12:00am August 30, 2019 10:16am Problems Active Problems Problem Classification Problem Date Documented Date Episodic/Chronic Cancer of bladder (7 sources) Malignant tumor of urinary bladder; Translations: [Malignant neoplasm of bladder, unspecified] 02-24-2021 Chronic Conduction disorders (7 sources) Right bundle branch block; Translations: [Unspecified right bundle-branch block] 02-21-2021 Chronic Diabetes mellitus without complication (7 sources) Type 2 diabetes mellitus; Translations: [Type 2 diabetes mellitus without complications] 02-21-2021 Chronic Comment on above: DIET CONTROLLED, NO MEDS E Codes: Fall (5 sources) Fall from bed, initial encounter; Translations: [Accidental fall from bed] Onset: 10-02-2023 10-02-2023 Episodic Essential hypertension (7 sources) Essential hypertension; Translations: [Essential (primary) hypertension] 02-21-2021 Chronic Comment on above: CONTROLLED WITH MED Intracranial injury (5 sources) Concussion with less than 1 hour loss of consciousness; Translations: [Concussion with loss of consciousness of 30 minutes or less, initial encounter] Onset: 10-02-2023 10-02-2023 Episodic Menopausal disorders (1 source) Unspecified menopausal and perimenopausal disorder; Translations: [Unspecified menopausal and perimenopausal disorder] Onset: 08-13-2024 Chronic Osteoarthritis (14 sources) Bilateral osteoarthritis of knees; Translations: [Bilateral primary osteoarthritis of knee] 02-21-2021 Chronic Other aftercare (14 sources) Follow-up status; Translations: [Encounter for other orthopedic aftercare] 03-23-2021 Episodic Other and unspecified benign neoplasm (3 sources) History of polyp of colon; Translations: [Personal history of colonic polyps] 05-16-2023 Episodic Other and unspecified benign neoplasm (1 source) Personal history of colonic polyps; Translations: [Personal history of colonic polyps] 05-16-2023 Episodic Other connective tissue disease (7 sources) History of total knee arthroplasty; Translations: [Presence of unspecified artificial knee joint] 03-11-2021 Chronic Other connective tissue disease (2 sources) Presence of unspecified artificial knee joint; Translations: [Knee joint replacement] Chronic Other injuries and conditions due to external causes (1 source) Closed injury of head; Translations: [Unspecified injury of head, initial encounter] 10-02-2023 Episodic Other injuries and conditions due to external causes (4 sources) Unspecified injury of head, initial encounter; Translations: [Unspecified injury of head, initial encounter] Onset: 10-02-2023 Episodic Other non-traumatic joint disorders (1 source) Pain in unspecified knee; Translations: [Pain in unspecified knee] Onset: 01-14-2025 Episodic Other skin disorders (7 sources) Actinic keratosis; Translations: [Actinic keratosis] 02-21-2021 Episodic Sprains and strains (5 sources) Low back strain; Translations: [Strain of muscle, fascia and tendon of lower back, initial encounter] Onset: 10-02-2023 10-02-2023 Episodic Thyroid disorders (15 sources) Hypothyroidism; Translations: [Hypothyroidism, unspecified] Onset: 08-30-2024 02-23-2021 Chronic Past or Other Problems Problem Classification Problem Date Documented Date Episodic/Chronic Other screening for suspected conditions (not mental disorders or infectious disease) (15 sources) Electrocardiogram abnormal; Translations: [Abnormal electrocardiogram [ECG] [EKG]] Onset: 06-19-2024 02-24-2021 Episodic Results Test Name Value Interpretation Reference Range Facility Knee 3 Viewson 01-14-2025 Knee 3 Views [facility] [address] [place] [address] [id number] Knee 3 Views MR#: [id number] Acct: [id number] Name: JOB RUGGIERO Rep #: [id number] : 1940 F 84 From: Kaila Alford PCP: Dr. Casandra Ordoñez MD Status: DEP AMB Study: Knee 3 Views Date of Exam: 01/14/25 Exam# [id number] Ordering Dr: Duncan Castro DO PROCEDURE: KNEE 3 VIEWS 01/14/2025 REASON FOR EXAM: RIGHT KNEE PAIN, NKI TECHNIQUE: KNEE 3 VIEWS COMPARISON: None FINDINGS: Bones: Diffuse osteopenia of the right distal femur and proximal tibia and fibula are noted. There are 4 round lucencies measuring approximately 3 mm each, seen in the proximal tibia, presumably from prior surgery. Clinical correlation is recommended. There are no acute fractures or dislocations. Joints: The right prosthetic knee device appears to be in satisfactory position without evidence of fracture or loosening. Effusion: None Soft tissues: None Other: A spur is seen off of the anterior superior, anterior inferior and posterior superior aspect of the patella. RAD/Knee 3 Views IMPRESSION: The right prosthetic knee device appears to be in satisfactory position without evidence of fracture or loosening. Reading Location: [facility] CC: Dr. Casandra Ordoñez MD; Dr. Duncan Castro DO Needle Grinder: Signed Normal [facility] Orthopedic Visit Reporton Orthopedic Visit Report [facility] [address] [place] [address] OFFICE VISIT Date of Service: 01/14/25 MR#: [id number] Acct: [id number] Name: JOB RUGGIERO Rep #: [id number] : 1940 Provider: Dr. Duncan valiente DO Age/Sex: 84/F Location: [facility] [place] Status: Signed Intake Vital Signs 07/15/23 09:09 01/14/25 12:59 Height 5 ft 6 in 5 ft 6 in Weight: 202 lb BMI 32.5 Intake Visit Reasons: RIGHT KNEE Chief Complaint: Right knee pain Accompanied by: Self Is patient in pain?: Yes (Right knee) Pain scale (1-10): 1 Allergies No Known Allergies Allergy (Verified 01/14/25 13:01) Medications ???Medication ???Instructions ???Recorded ???Confirmed ???Type hydrochlorothiazide 25 mg tablet 25 mg PO DAILY 05/24/18 01/14/25 H istory amlodipine 5 mg-benazepril 10 mg 1 cap PO DAILY BP 08/30/19 5 History capsule apple cider vinegar 600 mg capsule 1 tab PO DAILY 09/10/20 01/14/25 History calcium 600 mg (as 1 cap PO DAILY 09/10/20 01/14/25 H istory carbonate)-vitamin D3 12.5 mcg (500 unit) capsule (Calcium with Vit D3) vitamins A,C,X-rglc-tiudkk 4,296 1 cap PO BID 09/10/20 01/14/25 His tory mcg-226 mg-90 mg capsule (PreserVision AREDS) biotin 1 mg tablet 1 mg PO DAILY 09/16/20 01/14/25 Hi story polyvinyl alcohol-povidone (PF) 1 ea OP BID 09/16/20 01/14/25 Hist ory 1.4 %-0.6 % eye drops in a dropperette (Refresh Classic (PF)) duloxetine 60 mg capsule,delayed 60 mg PO QHS 02/24/21 01/14/25 His tory release levothyroxine 75 mcg tablet 75 mcg PO DAILY 02/24/21 01/14/25 History acetaminophen 500 mg tablet 1,000 mg (2 x 500 mg) PO Q6H PRN 0 03/11/21 01/14/25 Rx PRN pain #100 tabs valerian root 1,000 mg capsule 2,400 mg PO QHS 07/13/23 01/14/25 History vitamin B complex (B 1 tab PO DAILY 07/13/23 01/14/25 H istory Complex-Vitamin B12 tablet) magnesium 200 mg tablet 200 mg PO QDAY 01/14/25 01/14/25 H istory Have you fallen in the past year?: No PFSH Medical History Wears glasses Lesion of face Diabetes Low iron Leg cramps History of stress test Cardiology follow-up encounter Personal history of colonic polyps Hypothyroidism Right bundle branch block (RBBB) Essential hypertension Anxiety Alcohol use Thyroid disease Arthritis Restless legs Migraine headache Non-smoker Left knee DJD Osteoarthritis of knees, bilateral Actinic keratosis Bladder cancer Type 2 diabetes mellitus Screening for intestinal cancer Surgical History Hx of right cataract extraction Hx of left cataract extraction Hx of colonoscopy Hx of total knee arthroplasty Hx of cataract extraction H/O oophorectomy History of total right knee replacement History of carpal tunnel release History of bladder surgery H/O lumpectomy Family History Father CVA (cerebral vascular accident) Heart disease Mother Gallbladder cancer Brother CVA (cerebral vascular accident) Social History household members: spouse housing: house Smoking Status: Never smoker alcohol intake: never details: occasionally substance use type: does not use caffeine: Yes what type of physical activity do you participate in: none seatbelt use: always do you feel safe at home: Yes additional social history: -Tobi HPI RIGHT KNEE Details: This documentation accurately reflects the service provided and the decisions made by me, Dr. Duncan Castro, DO 01/14/25 0806. Part of today???s visit was documented by Swapna Vines RN, acting as scribe. JOB RUGGIERO is a 84 year old F here today for right knee pain. She reports a several month history of intermittent right knee pain. She describes it as a deep ache. She does not feel as though it is going to give out on her. She states that the knee feels heavy at times. One week ago she heard a crunch in her knee while turning on her side in bed she reports this was not painful but did worry her so she decided to schedule an appointment. She denies numbness or tingling into her leg. Walking long distances exacerbates the pain but she is still able to do it. She does limp when walking longer distances. She denies new injury, trauma or falls. She did have a right TKA on 09/30/[address] Castro. Ortho Exam General General: Yes no acute distress Neurologic: Yes alert and Yes oriented x3 Psychologic: Yes reasonable and appropriate Right Knee Skin/Wound: No erythema, No ecchymosis and No swelling Knee ROM: Yes ROM-Extension -20 to 0 and Yes ROM-Flexion 0-140 (115) Examination: No Crepitus, No TTP Pe (more content not included)... Normal [facility] Thyroid Stim Hormone (TSH)on 08-14-2024 TSH 2.160 uIU/mL Normal 0.358-3.740 [facility] Comment on above: Performed By: #### L [phone] #### [facility] [address] [place], [address] Dexa Bone Density Studyon Dexa Bone Density Study [facility] [address] [place], [place] [address] Dexa Bone Density Study MR#: [id number] Acct: [id number] Name: JOB RUGGIERO Rep #: [id number] : 1940 F 83 From: Yogesh bar MD PCP: Dr. Casandra Ordoñez MD Status: REG CLI Study: Dexa Bone Density Study Date of Exam: 07/26/24 Exam# [id number] Ordering Dr: Casandra Ordoñez MD [id number] STUDY: DUAL ENERGY X-RAY ABSORPTIOMETRY / DXA REASON FOR EXAM: Female, 83 years old. 627.8Menopausal postmenopausal BONE DENSITY REASON FOR EXAM TECHNIQUE: Bone Mineral Density (BMD) measurements of lumbar spine and bilateral hips were obtained. COMPARISON: Comparison is made with prior examination dated January 15, 2021. FINDINGS: Lumbar Spine (L1-L4): g/cm2 (1.243) / T-score (2.4) / Z-score (5.0) Findings are suggestive of normal bone density with a low fracture risk. Left Femur Total: g/cm2 (0.983) / T-score (0.3) / Z-score (2.5) Left Femoral Neck: g/cm2 (0.791) / T-score (-0.5) / Z-score (1.9) Right Femur Total: g/cm2 (1.011) / T-score (0.6) / Z-score (2.8) Right Femoral Neck: g/cm2 (0.849) / T-score (0.0) / Z-score (2.4) The T-Scores on the most recent prior examination were: Lumbar Spine (L1-L4): There has been worsening of bone density since the previous examination. Left Femur Total: which represents an improvement of 0.6%. Right Femur Total: which represents an improvement of 5%. BD/Dexa Bone Density Study IMPRESSION: The patient is considered normal as outlined below according to World Werner Organization (WHO) criteria with a low fracture risk. There has been improvement of bone density since the previous examination. Reference Information: The T-score is the number of standard deviations above or below the standard which is normal for young adults at their peak bone mineral density. The World Health Organization (WHO) interprets the T-scores as follows: Above -1 Normal bone density Between -1 and -2.5 Osteopenia Equal to / or below -2.5 Osteoporosis As a practical clinical guideline, osteopenia may be graded as follows: Mild -1 through -1.5 Moderate -1.6 through -2.0 Severe -2.1 through -2.4 The Z-score is the number of standard deviations above or below age-matched controls. A Z-score of less than -1.5 would be considered abnormal. References: 1. NIH Osteoporosis and Related Bone Diseases www osteo.org 2. International Society for Clinical Densitometry www iscd.org 3. National Osteoporosis Foundation www nof.org Electronically Signed: Yogesh Terrazas MD at 13:53 EST Reading Location ID and State: [facility] / [place] , Service support , CC: Dr. Casandra Ordoñez MD Needle Grinder: Signed Normal [facility] SCRN MAMM (CAD)W/GUERA Machuca n 05-22-2024 [facility] [address] [place], [place] [address] SCRN MAMM (CAD)W/GUERAPrashanth CAMILO MR#: [id number] Acct: [id number] Name: JOB RUGGIERO Rep #: [id number] : 1940 F 83 From: Yogesh bar MD PCP: Dr. Casandra Ordoñez MD Status: [facility] Study: SCRN MAMM (CAD)W/GUERA BILAT Date of Exam: 05/04 03/27 Exam# [id number] Ordering Dr: Casandra Ordoñez MD [id number] MAMMOGRAPHY - BILATERAL SCREENING REASON FOR EXAM: Female, 83 years old. Routine annual screening examination. PERTINENT HISTORY: Non-contributory. History of prior bilateral excisional breast biopsies. TECHNIQUE: Digital bilateral breast guera (3D mammographic acquisition) in the CC and MLO projections. 2-D mediolateral oblique (MLO) and craniocaudad (CC) views of both breasts were obtained. CAD: Full Field Digital Mammography with Computer Added Detection was performed. COMPARISON: Comparison is made with prior study April 29, 2023 and March 30, 2022 FINDINGS: Breast Composition: The breasts are almost entirely fatty. There are no dominant masses or suspicious calcifications. Stable small benign-appearing bilateral axillary lymph nodes. No other significant abnormalities are identified. There has been no significant change since the prior study. BI/SCRN MAMM (CAD)W/GUERA BILAT IMPRESSION: Stable bilateral screening mammogram. Yearly follow-up mammogram recommended. (A) ASSESSMENT CATEGORY: BIRADS Category 2: Benign. A letter regarding these results will be sent to the patient by the facility within 30 days. Approximately 10% of breast cancers are not detected by mammography. A normal mammogram should not delay biopsy of a clinically suspicious abnormality. [id number] Electronically Signed: Yogesh Terrazas MD at 11:10 EST , CC: Dr. Casandra Ordoñez MD Needle Grinder: Signed [facility] [id number] 04-21-2024 VIT D,25 HYDROX [facility] Comment on above: Result Comment: TEST RESULTS LIMITS Vitamin D, 25-Hydroxy 30.4 ng/mL 30.0-100.0 Vitamin D deficiency has been defined by the [place] of [employer] and an Endocrine Society practice guideline as a level of serum 25-OH vitamin D less than 20 ng/mL (1,2). The Endocrine Society went on to further define vitamin D insufficiency as a level between 21 and 29 ng/mL (2). 1. IOM ([place] [employer]). 2010. Dietary reference intakes for calcium and D. [place]: The National Academies Press. 2. Reva MF, Jerel NC, Hansel ORTIZ, et al. Evaluation, treatment, and prevention of vitamin D deficiency: an Endocrine Society clinical practice guideline. JCEM. 2011 Jan; 96(7):1911-30. TESTING PERFORMED AT [facility]. ORIGINAL REPORT ON FILE IN LAB CONTAINS ADDITIONAL TEST SITE INFORMATION. Performed By: #### L 3300.0940, L5000.0012 #### [facility] [address] [place], [address] L5000.0012on 04-21-2024 Vitamin B12 [facility] Comment on above: Result Comment: TEST RESULTS LIMITS Vitamin B12 741 pg/mL 232-1245 TESTING PERFORMED AT [facility]. ORIGINAL REPORT ON FILE IN LAB CONTAINS ADDITIONAL TEST SITE INFORMATION. Performed By: #### L 3300.0940, L5000.0012 #### [facility] [address] [place], [address] CBC W/Diff, Automatedon 04-03 Absolute Lymph 1.75 X10 3/uL Normal 0.83-4.51 [facility] Comment on above: Order Comment: Order Date: 02/17/24 Order Info: 0184-1 - CBCD Performed By: #### L 501.9520, L100.0100, L500.4050 #### [facility] [address] [place], [address] Absolute Neut 4.2 X10 3/uL Normal 2.0-7.7 [facility] Comment on above: Order Comment: Order Date: 02/17/24 Order Info: 0184-1 - CBCD Performed By: #### L 501.9520, L100.0100, L500.4050 #### [facility] [address] [place], [address] Basophils/100 WBC (Bld) 0.6 % Normal 0-1 [facility] Comment on above: Order Comment: Order Date: 02/17/24 Order Info: 0184-1 - CBCD Performed By: #### L 501.9520, L100.0100, L500.4050 #### [facility] [address] [place], [address] Eosinophils/100 WBC (Bld) 5.9 % High 0-5 [facility] Comment on above: Order Comment: Order Date: 02/17/24 Order Info: 0184- - CBCD Performed By: #### L 501.9520, L100.0100, L500.4050 #### [facility] [address] [place], [address] Erythrocyte distribution width (RBC) [Ratio] 13.1 % Normal 11.6-14.6 [facility] Comment on above: Order Comment: Order Date: 02/17/24 Order Info: 018- - CBCD Performed By: #### L 501.9520, L100.0100, L500.4050 #### [facility] [address] [place], [address] Hematocrit (Bld) [Volume fraction] 39.6 % Normal 37-47 [facility] Comment on above: Order Comment: Order Date: 02/17/24 Order Info: 0184- - CBCD Performed By: #### L 501.9520, L100.0100, L500.4050 #### [facility] [address] [place], [address] Hemoglobin (Bld) [Mass/Vol] 12.8 g/dL Normal 12.0-15.0 [facility] Comment on above: Order Comment: Order Date: 02/17/24 Order Info: 0184- - CBCD Performed By: #### L 501.9520, L100.0100, L500.4050 #### [facility] [address] [place], [address] IG% 0.600 Normal 0.0-0.9 [facility] Comment on above: Order Comment: Order Date: 02/17/24 Order Info: 0184- - CBCD Result Comment: IG% - Immature Granulocytes (promyelocytes, myelocytes and metamyelocytes) > 1% indicates that a LEFT SHIFT is Present. Performed By: #### L 501.9520, L100.0100, L500.4050 #### [facility] [address] [place], [address] Lymphocytes/100 WBC (Bld) 24.6 % Normal 19-41 [facility] Comment on above: Order Comment: Order Date: 02/17/24 Order Info: 0184-1 - CBCD Performed By: #### L 501.9520, L100.0100, L500.4050 #### [facility] [address] [place], [address] MCH (RBC) [Entitic mass] 28.4 pg Normal 27.0-32.0 [facility] Comment on above: Order Comment: Order Date: 02/17/24 Order Info: 0184-1 - CBCD Performed By: #### L 501.9520, L100.0100, L500.4050 #### [facility] [address] [place], [address] MCHC (RBC) [Mass/Vol] 32.3 g/dL Normal 32-36 [facility] Comment on above: Order Comment: Order Date: 02/17/24 Order Info: 0184-1 - CBCD Performed By: #### L 501.9520, L100.0100, L500.4050 #### [facility] [address], [address] MCV (RBC) [Entitic vol] 88.0 fL Normal 81-99 [facility] Comment on above: Order Comment: Order Date: 02/17/24 Order Info: 0184-1 - CBCD Performed By: #### L 501.9520, L100.0100, L500.4050 #### [facility] [address] [place], [address] Monocytes/100 WBC (Bld) 9.0 % Normal 0-10 [facility] Comment on above: Order Comment: Order Date: 02/17/24 Order Info: 0184-1 - CBCD Performed By: #### L 501.9520, L100.0100, L500.4050 #### [facility] [address] [place], [address] Neutrophils/100 WBC (Bld) 59.3 % Normal 47-70 [facility] Comment on above: Order Comment: Order Date: 02/17/24 Order Info: 0184-1 - CBCD Performed By: #### L 501.9520, L100.0100, L500.4050 #### [facility] [address] [place], [address] Nucleated RBC (Bld) [#/Vol] 0 10*3/uL Normal 0-5 [facility] Comment on above: Order Comment: Order Date: 02/17/24 Order Info: 0184-1 - CBCD Performed By: #### L 501.9520, L100.0100, L500.4050 #### [facility] [address] [place], [address] Platelet mean volume (Bld) [Entitic vol] 12.0 fL Normal 6.2-12.0 [facility] Comment on above: Order Comment: Order Date: 02/17/24 Order Info: 0184-1 - CBCD Performed By: #### L 501.9520, L100.0100, L500.4050 #### [facility] [address] [place], [address] Platelets (Bld) [#/Vol] 209 10*3/uL Normal 150-450 [facility] Comment on above: Order Comment: Order Date: 02/17/24 Order Info: 0184-1 - CBCD Performed By: #### L 501.9520, L100.0100, L500.4050 #### [facility] [address] [place], [address] RBC (Bld) [#/Vol] 4.50 10*6/uL Normal 4.2-5.4 [facility] Comment on above: Order Comment: Order Date: 02/17/24 Order Info: 0184-1 - CBCD Performed By: #### L 501.9520, L100.0100, L500.4050 #### [facility] [address] [place], [address] RDW SD 42.5 fl Normal 35.1-43.9 [facility] Comment on above: Order Comment: Order Date: 02/17/24 Order Info: 0184- - CBCD Performed By: #### L 501.9520, L100.0100, L500.4050 #### [facility] [address] [place], [address] WBC (Bld) [#/Vol] 7.1 10*3/uL Normal 4.4-11.0 [facility] Comment on above: Order Comment: Order Date: 02/17/24 Order Info: 0184- - CBCD Performed By: #### L 501.9520, L100.0100, L500.4050 #### [facility] [address] [place], [address] Comprehensive Metabolic Prof [facility] 04-17-2024 Albumin [Mass/Vol] 3.4 g/dL Normal 3.2-5.0 [facility] Comment on above: Order Comment: Order Date: 02/17/24 Order Info: 0786-1 - CMP Order Info: 3016-3 - TSH Performed By: #### L 501.9520, L100.0100, L500.4050 #### [facility] [address] [place], [address] Albumin/Globulin [Mass ratio] 0.8 {ratio} Low 0.9-2.4 [facility] Comment on above: Order Comment: Order Date: 02/17/24 Order Info: 0786-1 - CMP Order Info: 3016-3 - TSH Performed By: #### L 501.9520, L100.0100, L500.4050 #### [facility] [address] [place], [address] ALK P 101 U/L Normal 45-117 [facility] Comment on above: Order Comment: Order Date: 02/17/24 Order Info: 0786-1 - CMP Order Info: 301-3 - TSH Performed By: #### L 501.9520, L100.0100, L500.4050 #### [facility] [address] [place], [address] ALT [Catalytic activity/Vol] 16 U/L Normal 13-56 [facility] Comment on above: Order Comment: Order Date: 02/17/24 Order Info: 0786-1 - CMP Order Info: 3013 - TSH Performed By: #### L 501.9520, L100.0100, L500.4050 #### [facility] [address] [place], [address] AST [Catalytic activity/Vol] 23 U/L Normal 15-37 [facility] Comment on above: Order Comment: Order Date: 02/17/24 Order Info: 0786- - CMP Order Info: 3013 - TSH Performed By: #### L 501.9520, L100.0100, L500.4050 #### [facility] [address] [place], [address] Bilirubin [Mass/Vol] 0.40 mg/dL Normal 0.20-1.00 [facility] Comment on above: Order Comment: Order Date: 02/17/24 Order Info: 0786-1 - CMP Order Info: 3016-3 - TSH Result Comment: For patients on eltrombopag therapy, use of Dimension Nutrioso TBIL is not recommended. Performed By: #### L 501.9520, L100.0100, L500.4050 #### [facility] [address] [place], [address] BUN/CRE 24.6 RATIO High 10-20 [facility] Comment on above: Order Comment: Order Date: 02/17/24 Order Info: 0786-1 - CMP Order Info: 3015-09 - TSH Performed By: #### L 501.9520, L100.0100, L500.4050 #### [facility] [address] [place], [address] CA,Total 9.5 mg/dL Normal 8.5-10.1 [facility] Comment on above: Order Comment: Order Date: 02/17/24 Order Info: 785-07 - CMP Order Info: 3015-09 - TSH Performed By: #### L 501.9520, L100.0100, L500.4050 #### [facility] [address] [place], [address] Chloride [Moles/Vol] 106 mmol/L Normal 98-107 [facility] Comment on above: Order Comment: Order Date: 02/17/24 Order Info: 785-07 - CMP Order Info: 3015-09 - TSH Performed By: #### L 501.9520, L100.0100, L500.4050 #### [facility] [address] [place], [address] CO2 [Moles/Vol] 28.0 mmol/L Normal 21.0-32.0 [facility] Comment on above: Order Comment: Order Date: 02/17/24 Order Info: 07 - CMP Order Info: 3015-09 - TSH Performed By: #### L 501.9520, L100.0100, L500.4050 #### [facility] [address] [place], [address] Creatinine [Mass/Vol] 0.81 mg/dL Normal 0.55-1.02 [facility] Comment on above: Order Comment: Order Date: 02/17/24 Order Info: 07 - CMP Order Info: 3 - TSH Result Comment: The validity of the calculated GFR GFRAA in patients over 70 years has not been determined. Clinical correlation is essential. Performed By: #### L 501.9520, L100.0100, L500.4050 #### [facility] [address] [place], [address] EST GFR - AA 87 mL/min Normal >60 [facility] Comment on above: Order Comment: Order Date: 02/17/24 Order Info: 0786-1 - CMP Order Info: 301-3 - TSH Result Comment: Afri can [place] GFR Calc Performed By: #### L 501.9520, L100.0100, L500.4050 #### [facility] [address] [place], [address] GAP 7 Normal 5-15 [facility] Comment on above: Order Comment: Order Date: 02/17/24 Order Info: 0786-1 - CMP Order Info: 30112-04 - TSH Performed By: #### L 501.9520, L100.0100, L500.4050 #### [facility] [address] [place], [address] GFR/1.73 sq M.predicted among non-blacks MDRD (S/P/Bld) [Vol rate/Area] 72 mL/min/{1.73_m2} Normal >60 [facility] Comment on above: Order Comment: Order Date: 02/17/24 Order Info: 0786-1 - CMP Order Info: 3016 - TSH Result Comment: Non- GFR Calc Performed By: #### L 501.9520, L100.0100, L500.4050 #### [facility] [address] [place], [address] Globulin (S) [Mass/Vol] 4.0 g/dL Normal 2.2-4.2 [facility] Comment on above: Order Comment: Order Date: 02/17/24 Order Info: 0786-1 - CMP Order Info: 30163 - TSH Performed By: #### L 501.9520, L100.0100, L500.4050 #### [facility] [address] [place], [address] Glucose [Mass/Vol] 120 mg/dL High 74-106 [facility] Comment on above: Order Comment: Order Date: 02/17/24 Order Info: 0786-1 - CMP Order Info: 3016-3 - TSH Result Comment: Fast ing Glucose result from 100 to 125 mg/dL suggests IMPAIRED HOMEOSTASIS per A.D.A. criteria. Performed By: #### L 501.9520, L100.0100, L500.4050 #### [facility] [address] [place], [address] Potassium [Moles/Vol] 3.6 mmol/L Normal 3.5-5.1 [facility] Comment on above: Order Comment: Order Date: 02/17/24 Order Info: 0786-1 - [facility] Order Info: 30163 - TSH Performed By: #### L 501.9520, L100.0100, L500.4050 #### [facility] [address] [place], [address] Sodium [Moles/Vol] 141 mmol/L Normal 136-145 [facility] Comment on above: Order Comment: Order Date: 02/17/24 Order Info: 0786-1 - [facility] Order Info: 3016-3 - TSH Performed By: #### L 501.9520, L100.0100, L500.4050 #### [facility] [address] [place], [address] T PROT 7.4 g/dL Normal 6.4-8.2 [facility] Comment on above: Order Comment: Order Date: 02/17/24 Order Info: 0786-1 - [facility] Order Info: 3016-3 - TSH Performed By: #### L 501.9520, L100.0100, L500.4050 #### [facility] [address] [place], [address] Urea nitrogen [Mass/Vol] 20 mg/dL High 7-18 [facility] Comment on above: Order Comment: Order Date: 02/17/24 Order Info: 0786-1 - [facility] Order Info: 3016-3 - TSH Performed By: #### L 501.9520, L100.0100, L500.4050 #### [facility] [address] [place], [address] Thyroid Stim Hormone (TSH)on 04-17-2024 TSH 4.730 uIU/mL High 0.358-3.740 [facility] Comment on above: Order Comment: Order Date: 02/17/24 Order Info: 0786-1 - [facility] Order Info: 3016-3 - TSH Performed By: #### L 501.9520, L100.0100, L500.4050 #### [facility] [address] [place], [address] CT CERVICAL SPINE WO CONTRAS Ton 10-02-2023 CT CERVICAL SPINE WO CONTRAST EXAM: CT CERVICAL SPINE WO CONTRAST, CT LUMBAR SPINE WO CONTRAST INDICATION: Fall, injury with neck pain, back pain COMPARISON: None. TECHNIQUE: Axial CT imaging obtained through the cervical and lumbar spine. Axial images and multiplanar reformatted images reviewed. Up-to-date CT equipment and radiation dose reduction techniques were employed. IV contrast: None. FINDINGS: Cervical spine: Grade 1 anterolisthesis of C4 on C5. Vertebral body heights are normal. No acute fracture. Predental space is not widened. No abnormal prevertebral soft tissue swelling. Atlantooccipital joints are maintained. Multilevel krbh-ce-ejdtysux degenerative disc disease. Lumbar spine: Mild dextroconvex scoliosis. Grade 1 anterolisthesis of L3 on L4. Vertebral body heights are normal. No acute fracture. Multilevel ptih-it-ycfmfugh degenerative disc disease. IMPRESSION: Cervical spine 1. No acute fracture. 2. Grade 1 anterolisthesis of C4 on C5. 3. Multilevel lxff-cy-dbrobxbs degenerative disc disease. Lumbar spine 1. No acute fracture. 2. Mild dextro convex scoliosis. Grade 1 anterolisthesis of L3 on L4. 3. Multilevel nkxh-fp-lkamrycz degenerative disc disease. Electronically signed by Tres Huerta MD Interpreted by: Tres Huerta MD Signed by: Tres Huerta MD 10/02/23 Final result Normal [facility] Comment on above: Order Comment: Reaso n for exam:->Fall Decision Support Exception - unselect if not a suspected or confirmed emergency medical condition->Emergency Medical Condition (MA) Reason for exam?->Fall CT Cervical spine WO contras ton 10-02-2023 Radiology Study observation (narrative) [facility] CT HEAD WO CONTRASTon 2023 CT HEAD WO CONTRAST Exam Type: CT HEAD WO CONTRAST Indication: Fall, hit head Comparison: Head CT dated None Location: [place] Technique: Multiple axial CT images of the head were obtained without contrast. CT dose reduction technique used. Findings: No acute intracranial hemorrhage, territorial infarction or mass effect. The ventricles and sulci are normal. Mary-white matter differentiation is maintained. Basal cisterns are patent. No extra-axial fluid collection or midline shift. Small right parietal vertex scalp hematoma. Calvarium intact. IMPRESSION: Impression: No acute intracranial abnormality. Electronically signed by Tres Huerta MD Interpreted by: Tres Huerta MD Signed by: Tres Huerta MD 10/02/23 Final result Normal [facility] Comment on above: Order Comment: Has a code stroke or stroke alert been called?->No Reason for exam:->Fall, hit head Decision Support Exception - unselect if not a suspected or confirmed emergency medical condition->Emergency Medical Condition (MA) Reason for exam?->Fall, hit head CT Head WO contraston 2023 Impression: No acute intracranial abnormality. Electronically signed by Tres Huerta MD [facility] Exam Type: CT HEAD WO CONTRAST Indication: Fall, hit head Comparison: Head CT dated None Location: [place] Technique: Multiple axial CT images of the head were obtained without contrast. CT dose reduction technique used. Findings: No acute intracranial hemorrhage, territorial infarction or mass effect. The ventricles and sulci are normal. Mary-white matter differentiation is maintained. Basal cisterns are patent. No extra-axial fluid collection or midline shift. Small right parietal vertex scalp hematoma. Calvarium intact. [facility] Tres Huerta MD - 10/02/2023 Exam Type: CT HEAD WO CONTRAST Indication: Fall, hit head Comparison: Head CT dated None Location: [place] Technique: Multiple axial CT images of the head were obtained without contrast. CT dose reduction technique used. Findings: No acute intracranial hemorrhage, territorial infarction or mass effect. The ventricles and sulci are normal. Mary-white matter differentiation is maintained. Basal cisterns are patent. No extra-axial fluid collection or midline shift. Small right parietal vertex scalp hematoma. Calvarium intact. IMPRESSION: Impression: No acute intracranial abnormality. Electronically signed by Tres Huerta MD [facility] Radiology Study observation (narrative) [facility] CT Head WO contrastOrdered B y: Tres Huerta on 10-02-2023 [facility] Work Phone: CT LUMBAR SPINE WO CONTRASTo n 10-02-2023 CT LUMBAR SPINE WO CONTRAST EXAM: CT CERVICAL SPINE WO CONTRAST, CT LUMBAR SPINE WO CONTRAST INDICATION: Fall, injury with neck pain, back pain COMPARISON: None. TECHNIQUE: Axial CT imaging obtained through the cervical and lumbar spine. Axial images and multiplanar reformatted images reviewed. Up-to-date CT equipment and radiation dose reduction techniques were employed. IV contrast: None. FINDINGS: Cervical spine: Grade 1 anterolisthesis of C4 on C5. Vertebral body heights are normal. No acute fracture. Predental space is not widened. No abnormal prevertebral soft tissue swelling. Atlantooccipital joints are maintained. Multilevel zvrq-fs-blupcayo degenerative disc disease. Lumbar spine: Mild dextroconvex scoliosis. Grade 1 anterolisthesis of L3 on L4. Vertebral body heights are normal. No acute fracture. Multilevel ihch-ax-tekcujus degenerative disc disease. IMPRESSION: Cervical spine 1. No acute fracture. 2. Grade 1 anterolisthesis of C4 on C5. 3. Multilevel dgvo-sm-sbobrmyl degenerative disc disease. Lumbar spine 1. No acute fracture. 2. Mild dextro convex scoliosis. Grade 1 anterolisthesis of L3 on L4. 3. Multilevel brei-ts-abyphayp degenerative disc disease. Electronically signed by Tres Huerta MD Interpreted by: Tres Huerta MD Signed by: Tres Huerta MD 10/02/23 Final result Normal [facility] Comment on above: Order Comment: Reaso n for exam:->Fall, lower right back pain Decision Support Exception - unselect if not a suspected or confirmed emergency medical condition->Emergency Medical Condition (MA) Reason for exam?->Fall, lower right back pain CT Lumbar spine WO contrasto n 10-02-2023 Radiology Study observation (narrative) [facility] No Panel Informationon 10-01 Cervical spine 1. No acute fracture. 2. Grade 1 anterolisthesis of C4 on C5. 3. Multilevel tjvd-xu-iuhcvtzy degenerative disc disease. Lumbar spine 1. No acute fracture. 2. Mild dextro convex scoliosis. Grade 1 anterolisthesis of L3 on L4. 3. Multilevel ueww-pd-jkwzxrsy degenerative disc disease. Electronically signed by Tres Huerta MD [facility] EXAM: CT CERVICAL SPINE WO CONTRAST, CT LUMBAR SPINE WO CONTRAST INDICATION: Fall, injury with neck pain, back pain COMPARISON: None. TECHNIQUE: Axial CT imaging obtained through the cervical and lumbar spine. Axial images and multiplanar reformatted images reviewed. Up-to-date CT equipment and radiation dose reduction techniques were employed. IV contrast: None. FINDINGS: Cervical spine: Grade 1 anterolisthesis of C4 on C5. Vertebral body heights are normal. No acute fracture. Predental space is not widened. No abnormal prevertebral soft tissue swelling. Atlantooccipital joints are maintained. Multilevel juty-ud-xbtktgtk degenerative disc disease. Lumbar spine: Mild dextroconvex scoliosis. Grade 1 anterolisthesis of L3 on L4. Vertebral body heights are normal. No acute fracture. Multilevel kwwr-tm-gvbsxzrk degenerative disc disease. [facility] Tres Huerta MD - 10/02/2023 EXAM: CT CERVICAL SPINE WO CONTRAST, CT LUMBAR SPINE WO CONTRAST INDICATION: Fall, injury with neck pain, back pain COMPARISON: None. TECHNIQUE: Axial CT imaging obtained through the cervical and lumbar spine. Axial images and multiplanar reformatted images reviewed. Up-to-date CT equipment and radiation dose reduction techniques were employed. IV contrast: None. FINDINGS: Cervical spine: Grade 1 anterolisthesis of C4 on C5. Vertebral body heights are normal. No acute fracture. Predental space is not widened. No abnormal prevertebral soft tissue swelling. Atlantooccipital joints are maintained. Multilevel mryd-go-veolibxn degenerative disc disease. Lumbar spine: Mild dextroconvex scoliosis. Grade 1 anterolisthesis of L3 on L4. Vertebral body heights are normal. No acute fracture. Multilevel tgjz-dy-hxnebrca degenerative disc disease. IMPRESSION: Cervical spine 1. No acute fracture. 2. Grade 1 anterolisthesis of C4 on C5. 3. Multilevel poew-ww-irphbxba degenerative disc disease. Lumbar spine 1. No acute fracture. 2. Mild dextro convex scoliosis. Grade 1 anterolisthesis of L3 on L4. 3. Multilevel tgqc-bx-witgrbut degenerative disc disease. Electronically signed by Tres Huerta MD [facility] Glucose Glucometer (BldC) [M ass/Vol]Ordered By: Parmjit Peoples on 07-15-2023 Glucose [Mass/Vol] 126 mg/dL 74-106 [facility] Comment on above: MANAGEMENT OF PATIEN T CARE PER NURSING PROTOCOL Absolute lymphocyte countOrd ered By: Edie Pelletier on 04-20-2023 Lymphocytes Auto (Unsp spec) [#/Vol] 1.23 10*3/uL 0.83-4.51 [facility] Basophil percentageOrdered B y: Edie Pelletier on 04-20-2023 Basophils/100 WBC (Bld) 1.0 % 0-1 [facility] Bilirubin [Mass/Vol] 0.40 mg/dL 0.20-1.00 [facility] [facility] Comment on above: For patients on eltr ombopag therapy, use of Dimension Nutrioso TBIL is not recommended. Chloride [Moles/Vol] 106 mmol/L 98-107 [facility] Eosinophils/100 WBC (Bld) 4.0 % 0-5 [facility] Glucose [Mass/Vol] 118 mg/dL 74-106 [facility] Comment on above: Fasting Glucose resu lt from 100 to 125 mg/dL suggests IMPAIRED HOMEOSTASIS per A.D.A. criteria. Neutrophils (Bld) [#/Vol] 4.1 10*3/uL 2.0-7.7 [facility] Neutrophils/100 WBC (Bld) 66.5 % 47-70 [facility] Potassium [Moles/Vol] 4.0 mmol/L 3.5-5.1 [facility] Protein [Mass/Vol] 7.4 g/dL 6.4-8.2 [facility] Sodium [Moles/Vol] 140 mmol/L 136-145 [facility] WBC (Bld) [#/Vol] 6.2 10*3/uL 4.4-11.0 [facility] Blood erythrocytes count (nu mber/volume)Ordered By: Edie Pelletier on 04-20-2023 RBC (Bld) [#/Vol] 4.51 10*6/uL 4.2-5.4 [facility] Blood hemoglobin measurement (mass/volume)Ordered By: Edie Pelletier on 04-20-2023 Hemoglobin (Bld) [Mass/Vol] 12.8 g/dL 12.0-15.0 [facility] Blood lymphocytes/100 leukoc ytesOrdered By: Edie Pelletier on 04-20-2023 Lymphocytes/100 WBC (Bld) 19.9 % 19-41 [facility] Blood monocytes/100 leukocyt esOrdered By: Edie Pelletier on 04-20-2023 Monocytes/100 WBC (Bld) 8.3 % 0-10 [facility] Blood platelet mean volumeOr dered By: Edie Pelletier on 04-20-2023 Platelet mean volume (Bld) [Entitic vol] 10.8 fL 6.2-12.0 [facility] Determination of erythrocyte mean corpuscular volume (MCV)Ordered By: Edie Pelletier on 04-20-2023 MCV (RBC) [Entitic vol] 90.7 fL 81-99 [facility] Hematocrit Auto (Bld) [Volum e fraction]Ordered By: Edie Pelletier on 04-20-2023 Hematocrit (Bld) [Volume fraction] 40.9 % 37-47 [facility] Laboratory - Chemistry and C hemistry - challengeOrdered By: Edie Pelletier on 04-20-2023 ALP [Catalytic activity/Vol] 96 U/L 45-117 [facility] ALT [Catalytic activity/Vol] 15 U/L 13-56 [facility] CO2 [Moles/Vol] 31.0 mmol/L 21.0-32.0 [facility] Cobalamin (Vitamin B12) [Mass/Vol] 282 pg/mL 211-911 [facility] Globulin (S) [Mass/Vol] 4.0 g/dL 2.2-4.2 [facility] Magnesium [Mass/Vol] 2.5 mg/dL 1.6-2.6 [facility] Urea nitrogen/Creatinine [Mass ratio] 19.8 mg/mg 10-20 [facility] Laboratory - Hematology and Cell countsOrdered By: Edie Pelletier on 04-20-2023 Erythrocyte distribution width (RBC) [Entitic vol] 45.6 fL 35.1-43.9 [facility] Erythrocyte distribution width (RBC) [Ratio] 13.7 % 11.6-14.6 [facility] Immature granulocytes/100 WBC (Bld) 0.300 % 0.0-0.9 [facility] Comment on above: IG% - Immature Granu locytes (promyelocytes, myelocytes and metamyelocytes) > 1% indicates that a LEFT SHIFT is Present. MCH (RBC) [Entitic mass] 28.4 pg 27.0-32.0 [facility] Nucleated RBC/100 WBC (Bld) [Ratio] 0 % 0-5 [facility] MCHC Auto (RBC) [Mass/Vol]Or dered By: Edie Pelletier on 04-20-2023 MCHC (RBC) [Mass/Vol] 31.3 g/dL 32-36 [facility] No Panel InformationOrdered By: Edie Pelletier on 04-20-2023 Estimated GFR (MDRD) Amer 87 mL/min >60 [facility] Comment on above: GFR Calc Estimated GFR (MDRD) Non-Af Amer 72 mL/min >60 [facility] Comment on above: Non- GFR Calc Thyroid Stimulating Hormone (TSH) 2.60 uIU/mL 0.358-3.74 [facility] Urine Microalbumin/Creatinin e Ratio 22.7 mg/g CRE <30 [facility] Vitamin D 25-Hydroxy 32.7 ng/mL [facility] Comment on above: Vitamin D 25(OH) Sta tus Range Deficiency <20 ng/mL (50nmol/L) Insufficiency 20 - 30 ng/mL (50 - 75 nmol/L) Sufficiency 30 - 100 ng/mL (75 - 250 nmol/L) Toxicity >100 ng/mL (>250 nmol/L) Platelets bldOrdered By: Debo Pelletier on 04-20-2023 Platelets (Bld) [#/Vol] 300 10*3/uL 150-450 [facility] Serum or plasma albumin kathleen urement (mass/volume)Ordered By: Edie Pelletier on 04-20-2023 Albumin [Mass/Vol] 3.4 g/dL 3.2-5.0 [facility] Serum or plasma albumin/glob ulin mass ratioOrdered By: Edie Pelletier on 04-20-2023 Albumin/Globulin [Mass ratio] 0.8 {ratio} 0.9-2.4 [facility] Serum or plasma calcium kathleen urement (mass/volume)Ordered By: Edie Pelletier on 04-20-2023 Calcium [Mass/Vol] 9.1 mg/dL 8.5-10.1 [facility] Serum or plasma creatinine m easurement (mass/volume)Ordered By: Edie Pelletier on 04-20-2023 Creatinine [Mass/Vol] 0.81 mg/dL 0.55-1.02 [facility] Comment on above: The validity of the calculated GFR & GFRAA in patients over 70 years has not been determined. Clinical correlation is essential. Serum or plasma ferritin kendall surement (mass/volume)Ordered By: Edie Pelletier on 04-20-2023 Ferritin [Mass/Vol] 43 ng/mL 8- [facility] Serum or plasma urea nitroge n measurement (mass/volume)Ordered By: Edie Pelletier on 04-20-2023 Urea nitrogen [Mass/Vol] 16 mg/dL 7-18 [facility] Thin prep Papanicolaou smear with manual screeningOrdered By: Edie Pelletier on 04-20-2023 Thin prep Papanicolaou smear with manual screening 22 U/L 15-37 [facility] Thin prep Papanicolaou smear with manual screening 3 5-15 [facility] Thin prep Papanicolaou smear with manual screening 27.9 mg/L NO RANGE EST. [facility] Urine creatinine measurement (mass/volume)Ordered By: Edie Pelletier on 04-20-2023 Creatinine (U) [Mass/Vol] 123.00 mg/dL NO RANGE EST. [facility] Absolute lymphocyte counton 03-24-2022 Lymphocytes Auto (Unsp spec) [#/Vol] 1.54 10*3/uL 0.83-4.51 [facility] Work Phone: Basophil percentageon 2021 Basophils/100 WBC (Bld) 1.2 % 0-1 [facility] Work Phone: Chloride [Moles/Vol] 105 mmol/L 98-107 [facility] Work Phone: Eosinophils/100 WBC (Bld) 6.2 % 0-5 [facility] Work Phone: Glucose [Mass/Vol] 110 mg/dL 74-106 [facility] Work Phone: Comment on above: Fasting Glucose resu lt from 100 to 125 mg/dL suggests IMPAIRED HOMEOSTASIS per A.D.A. criteria. Neutrophils (Bld) [#/Vol] 4.1 10*3/uL 2.0-7.7 [facility] Work Phone: Neutrophils/100 WBC (Bld) 61.4 % 47-70 [facility] Work Phone: Potassium [Moles/Vol] 3.8 mmol/L 3.5-5.1 [facility] Work Phone: Sodium [Moles/Vol] 141 mmol/L 136-145 [facility] Work Phone: WBC (Bld) [#/Vol] 6.7 10*3/uL 4.4-11.0 [facility] Work Phone: Blood erythrocytes count (nu mber/volume)on 03-24-2022 RBC (Bld) [#/Vol] 4.70 10*6/uL 4.2-5.4 [facility] Work Phone: Blood hemoglobin measurement (mass/volume)on 03-24-2022 Hemoglobin (Bld) [Mass/Vol] 13.9 g/dL 12.0-15.0 [facility] Work Phone: Blood lymphocytes/100 leukoc yteson 03-24-2022 Lymphocytes/100 WBC (Bld) 23.1 % 19-41 [facility] Work Phone: Blood monocytes/100 leukocyt eson 03-24-2022 Monocytes/100 WBC (Bld) 7.8 % 0-10 [facility] Work Phone: Blood platelet mean volumeon 03-24-2022 Platelet mean volume (Bld) [Entitic vol] 10.4 fL 6.2-12.0 [facility] Work Phone: Determination of erythrocyte mean corpuscular volume (MCV)on 03-24-2022 MCV (RBC) [Entitic vol] 89.4 fL 81-99 [facility] Work Phone: Hematocrit Auto (Bld) [Volum e fraction]on 03-24-2022 Hematocrit (Bld) [Volume fraction] 42.0 % 37-47 [facility] Work Phone: Laboratory - Chemistry and C hemistry - challengeon 03-24-2022 CO2 [Moles/Vol] 29.0 mmol/L 21.0-32.0 [facility] Work Phone: Urea nitrogen/Creatinine [Mass ratio] 20.9 mg/mg 10-20 [facility] Work Phone: Laboratory - Hematology and Cell countson 03-24-2022 Erythrocyte distribution width (RBC) [Entitic vol] 42.0 fL 35.1-43.9 [facility] Work Phone: Erythrocyte distribution width (RBC) [Ratio] 12.8 % 11.6-14.6 [facility] Work Phone: Immature granulocytes/100 WBC (Bld) 0.300 % 0.0-0.9 [facility] Work Phone: Comment on above: IG% - Immature Granu locytes (promyelocytes, myelocytes and metamyelocytes) > 1% indicates that a LEFT SHIFT is Present. MCH (RBC) [Entitic mass] 29.6 pg 27.0-32.0 [facility] Work Phone: Nucleated RBC/100 WBC (Bld) [Ratio] 0 % 0-5 [facility] Work Phone: MCHC Auto (RBC) [Mass/Vol]on 03-24-2022 MCHC (RBC) [Mass/Vol] 33.1 g/dL 32-36 [facility] Work Phone: No Panel Informationon 03-24 Estimated GFR (MDRD) Amer 82 mL/min >60 [facility] Work Phone: Comment on above: GFR Calc Estimated GFR (MDRD) Non-Af Amer 67 mL/min >60 [facility] Work Phone: Comment on above: Non- GFR Calc Thyroid Stimulating Hormone (TSH) 1.21 uIU/mL 0.358-3.74 [facility] Work Phone: Platelets bldon 03-24-2022 Platelets (Bld) [#/Vol] 327 10*3/uL 150-450 [facility] Work Phone: Serum or plasma calcium kathleen urement (mass/volume)on 03-24-2022 Calcium [Mass/Vol] 9.4 mg/dL 8.5-10.1 [facility] Work Phone: Serum or plasma creatinine m easurement (mass/volume)on 03-24-2022 Creatinine [Mass/Vol] 0.86 mg/dL 0.55-1.02 [facility] Work Phone: Comment on above: The validity of the calculated GFR & GFRAA in patients over 70 years has not been determined. Clinical correlation is essential. Serum or plasma urea nitroge n measurement (mass/volume)on 03-24-2022 Urea nitrogen [Mass/Vol] 18 mg/dL 7-18 [facility] Work Phone: Thin prep Papanicolaou smear with manual screeningon 03-24-2022 Thin prep Papanicolaou smear with manual screening 7 5-15 [facility] Work Phone: Vital Signs Date Time Vital Sign Value Performing Clinician Faci lity 01-14-2025 12:59-0400 Body height 167.64 cm Casandra Ordoñez MD Work Phone: [facility] 01-14-2025 12:59-0400 Body mass index (BMI) [Ratio] 32.5 kg/m2 Casandra Ordoñez MD Work Phone: [facility] 01-14-2025 12:59-0400 Body weight 91.62 kg Casandra Ordoñez MD Work Phone: [facility] 10-02-2023 13:37-0400 Body temperature 98.1 [degF] Bell Weems MD Work Phone: [facility] 10-02-2023 13:37-0400 Diastolic blood pressure 109 mm[Hg] Bell Weems MD Work Phone: [facility] 10-02-2023 13:37-0400 Heart rate 109 /min Bell Weems MD Work Phone: [facility] 10-02-2023 13:37-0400 Respiratory rate 18 /min Bell Weems MD Work Phone: [facility] 10-02-2023 13:37-0400 SaO2% (BldA) [Mass fraction] 94 % Bell Weems MD Work Phone: [facility] 10-02-2023 13:37-0400 Systolic blood pressure 173 mm[Hg] Bell Weems MD Work Phone: [facility] 07-15-2023 11:08-0500 Body temperature 97.6 [degF] DO Edie Pelletier Work Phone: [facility] 07-15-2023 11:08-0500 Diastolic blood pressure 70 mm[Hg] DO Edieamie Hoer Work Phone: [facility] 07-15-2023 11:08-0500 Heart rate 71 /min DO Edie Hoer Work Phone: [facility] 07-15-2023 11:08-0500 Respiratory rate 16 /min DO Edie Claytonnger Work Phone: [facility] 07-15-2023 11:08-0500 SaO2% (BldA) [Mass fraction] 99 % DO Edie Prabhu Work Phone: [facility] 07-15-2023 11:08-0500 Systolic blood pressure 119 mm[Hg] DO Edie Prabhu Work Phone: [facility] 07-15-2023 09:09-0500 Body height 167.64 cm DO Edieamie Claytonnger Work Phone: [facility] 07-15-2023 09:09-0500 Body mass index (BMI) [Ratio] 32.3 kg/m2 DO Edie Prabhu Work Phone: [facility] 07-15-2023 09:09-0500 Body weight 90.71 kg DO Edieamie Claytonnger Work Phone: [facility] 05-16-2023 08:06-0500 Body mass index (BMI) [Ratio] 31.9 kg/m2 DO Edieamie Claytonnger Work Phone: [facility] 05-16-2023 08:06-0500 Body temperature 97.3 [degF] DO Edieamie Claytonnger Work Phone: [facility] 05-16-2023 08:06-0500 Body weight 89.81 kg DO Edieamie Claytonnger Work Phone: [facility] 05-16-2023 08:06-0500 Diastolic blood pressure 90 mm[Hg] DO Edieamie Claytonnger Work Phone: [facility] 05-16-2023 08:06-0500 Heart rate 102 /min DO Edie Prabhu Work Phone: [facility] 05-16-2023 08:06-0500 Respiratory rate 18 /min DO Edieamie Claytonnger Work Phone: [facility] 05-16-2023 08:06-0500 SaO2% (BldA) [Mass fraction] 94 % DO Edie Pelletier Work Phone: [facility] 05-16-2023 08:06-0500 Systolic blood pressure 130 mm[Hg] DO Edie Pelletier Work Phone: [facility] Encounters Encounter Date Encounter Type Care Provider Facility Start: 01-14-2025 End: 01-14-[address] Carlos Knight MD -[facility] Start: 01-14-2025 End: 01-14-2025 ambulatory Casandra Ordoñez MD Work Phone: -[facility] Start: 08-14-2024 End: 08-14-2024 ambulatory Casandra Smita Facility:[facility] Start: 07-26-2024 End: 07-26-2024 ambulatory [facility] Facility:[facility] Start: 05-22-2024 End: 05-22-2024 ambulatory [facility] Facility:[facility] Start: 04-17-2024 End: 04-17-2024 ambulatory [facility] Facility:[facility] Start: 10-02-2023 End: 10-02-2023 Emergency department patient visit Physician [facility] Start: 10-02-2023 End: 10-02-2023 Emergency department patient visit Bell Weems MD Work Phone: [facility] Emergency Department Comment on above: Fall from bed, initi al encounter (Primary Dx); Closed head injury, initial encounter; Concussion with loss of consciousness of 30 minutes or less, initial encounter; Strain of lumbar region, initial encounter Start: 07-15-2023 Non-patient / Non-visit DO Debo Pelletier Work Phone: [id number] Start: 07-15-2023 End: 07-15-2023 Admission to same day surgery center DO Edie Pelletier Work Phone: [facility] Work Phone: Start: 07-15-2023 End: 07-15-2023 ambulatory DO Edie Pelletier Work Phone: [facility] Work Phone: Start: 05-16-2023 End: 05-16-2023 Patient encounter procedure Edie Pelletier Work Phone: [facility] Work Phone: Start: 04-29-2023 End: 04-29-2023 ambulatory [facility] Work Phone: Start: 04-29-2023 End: 04-29-2023 Patient encounter procedure [facility] Work Phone: Start: 04-20-2023 End: 04-20-2023 ambulatory [facility] Work Phone: Start: 04-20-2023 End: 04-20-2023 Patient encounter procedure [facility] Start: 03-30-2022 End: 03-30-[address] Jason Morton Work Phone: [facility] Work Phone: Start: 03-30-2022 End: 03-30-[address] Jason Morton Work Phone: [facility] Start: 03-24-2022 End: 03-24-[address] Jason Morton Work Phone: [facility] Work Phone: Start: 03-24-2022 End: 03-24-[address] Jason Morton Work Phone: [facility] Start: 03-22-2022 End: 03-22-[address] Jason Morton Work Phone: [facility] Start: 02-24-[address] Renetta Morton Work Phone: [facility] Start: 03-15-2017 End: 03-15-2017 Ambulatory Facility:[facility] Procedures Date Procedure Procedure Detail Performing Clinician Start: 10-02-2023 End: 10-02-2023 Ct cervical spine w/o contrast material Bell Weems MD Work Phone: Start: 10-02-2023 Ct head/brain w/o co ntrast material Bell Weems MD Work Phone: Start: 07-15-2023 Colonoscopy DO Edie Pelletier Work Phone: Start: 04-29-2023 Screening mammography Start: 03-30-2022 Screening mammography Cortez Morton Work Phone: Start: 03-22-2022 Radiologic examinati on of knee Dr. Jason Morton Work Phone: Plan of Treatment Date Care Activity Detail Author Start: 12-15-2030 DTaP/Tdap/Td vaccine (2 - Td or Tdap) DTaP/Tdap/Td vaccine (2 - Td or Tdap) [facility] Start: 01-14-2025 XR Knee 3 Views [facility] Start: 01-14-2025 XR knee, 3 views Knee 3 Views [facility] Start: 07-15-2023 Patient discharge [facility] Start: 06-28-2022 Shingles vaccine (2 of 2) Shingles vaccine (2 of 2) [facility] Start: 04-19-2019 Pneumococcal 65+ years Vaccine (2 of 2 - PPSV23 or PCV20) Pneumococcal 65+ years Vaccine (2 of 2 - PPSV23 or PCV20) [facility] Start: 1996 Screening for osteoporosis DEXA (modify frequency per FRAX score) [facility] Start: 1953 Depression Screen Depression Screen [facility] Patient referral [facility] Work Phone: Immunizations Immunization Date Immunization Notes Care Provider Mundo cortez 09-25-2020 Covid (Moderna) Dr. Jason ruiz Work Phone: [facility] Payers Date Payer Category Payer Self-pay [id number] 2009 Private Health Insurance [id number] 2006 Medicare [id number] 1940 Unknown [id number] 2.16.8 [id number] 1941 Unknown [id number] 2.16.8 [id number] 1941 Unknown [id number] 2.16.8 [id number] 1941 Unknown [id number] 2.16.8 [id number] 1941 Unknown [id number] 2.16.8 [id number] 1941 Unknown [id number] 2.16.8 [id number] Unknown [id number] 2.16.8 [id number] Unknown [id number] 2.16.8 [id number] Unknown [id number] 2.16.8 [id number] Unknown [id number] 2.16.8 [id number] Unknown [id number] 2.16.8 [id number] Unknown [id number] 2.16.8 [id number] Social History Date Type Detail Facility Start: 03-22-2022 End: 07-13-2023 Tobacco smoking status NYIS Unknown if ever smoked [facility] Start: 09-16-2020 Non-smoker [facility] Start: 1940 Sex Assigned At Female [facility] Start: 07-13-2023 End: 10-02-2023 Tobacco smoking status NHIS Never smoked tobacco [facility] Start: 10-02-2023 Tobacco use and exposure Smokeless tobacco non-user [facility] Start: 10-02-2023 Alcohol intake Ex-drinker (finding) [facility] Start: 10-02-2023 History of Social function [facility] Start: 10-02-2023 Tobacco [facility] Start: 1940 Sex Assigned At Not on file [facility] NEGATED: Highlighted row [facility] Medical Equipment Procedure Code Equipment Code Equipment Origin al Text Equipment Identifier Dates ASYMMETRIC PATELLA FDA Start: 09-30-2020 CEMENT,HV SIMPLEX FDA Start: 09-30-2020 CEMENT,HV SIMPLEX FDA Start: 09-30-2020 CRUICIATE RETAIN ING FEMORAL FDA Start: 09-30-2020 TIBIAL BASEPLATE FDA Start: 09-30-2020 TIBIAL BEARING INSERT-CS FDA Start: 09-30-2020 CEMENT,HV SIMPLEX FDA Start: 03-10-2021 CEMENT,HV SIMPLEX FDA Start: 03-10-2021 ([id number]) Uncoated knee fe mur prosthesis, metallic [id number] FDA Start: 03-10-2021 ([id number]) Uncoated knee ti silverio prosthesis, metallic ()[id number] FDA Start: 03-10-2021 ([id number]) Polyethylene pat tayler prosthesis ()[id number] FDA Start: 03-10-2021 ([id number]) Tibial insert [id number] FDA Start: 03-10-2021 ASYMMETRIC PATELLA FDA Start: 09-30-2020 CEMENT,HV SIMPLEX FDA Start: 09-30-2020 CEMENT,HV SIMPLEX FDA Start: 09-30-2020 CRUICIATE RETAIN ING FEMORAL FDA Start: 09-30-2020 TIBIAL BASEPLATE FDA Start: 09-30-2020 TIBIAL BEARING INSERT-CS FDA Start: 09-30-2020 CEMENT,HV SIMPLEX FDA Start: 03-10-2021 CEMENT,HV SIMPLEX FDA Start: 03-10-2021 ASYMMETRIC PATELLA FDA Start: 09-30-2020 CEMENT,HV SIMPLEX FDA Start: 09-30-2020 CEMENT,HV SIMPLEX FDA Start: 09-30-2020 CRUICIATE RETAIN ING FEMORAL FDA Start: 09-30-2020 TIBIAL BASEPLATE FDA Start: 09-30-2020 TIBIAL BEARING INSERT-CS FDA Start: 09-30-2020 CEMENT,HV SIMPLEX FDA Start: 03-10-2021 CEMENT,HV SIMPLEX FDA Start: 03-10-2021 ASYMMETRIC PATELLA FDA Start: 09-30-2020 CEMENT,HV SIMPLEX FDA Start: 09-30-2020 CEMENT,HV SIMPLEX FDA Start: 09-30-2020 CRUICIATE RETAIN ING FEMORAL FDA Start: 09-30-2020 TIBIAL BASEPLATE FDA Start: 09-30-2020 TIBIAL BEARING INSERT-CS FDA Start: 09-30-2020 CEMENT,HV SIMPLEX FDA Start: 03-10-2021 CEMENT,HV SIMPLEX FDA Start: 03-10-2021 ASYMMETRIC PATELLA FDA Start: 09-30-2020 CEMENT,HV SIMPLEX FDA Start: 09-30-2020 CEMENT,HV SIMPLEX FDA Start: 09-30-2020 CRUICIATE RETAIN ING FEMORAL FDA Start: 09-30-2020 TIBIAL BASEPLATE FDA Start: 09-30-2020 TIBIAL BEARING INSERT-CS FDA Start: 09-30-2020 CEMENT,HV SIMPLEX FDA Start: 03-10-2021 CEMENT,HV SIMPLEX FDA Start: 03-10-2021 ASYMMETRIC PATELLA FDA Start: 09-30-2020 CEMENT,HV SIMPLEX FDA Start: 09-30-2020 CEMENT,HV SIMPLEX FDA Start: 09-30-2020 CRUICIATE RETAIN ING FEMORAL FDA Start: 09-30-2020 TIBIAL BASEPLATE FDA Start: 09-30-2020 TIBIAL BEARING INSERT-CS FDA Start: 09-30-2020 CEMENT,HV SIMPLEX FDA Start: 03-10-2021 CEMENT,HV SIMPLEX FDA Start: 03-10-2021 ASYMMETRIC PATELLA FDA Start: 09-30-2020 CEMENT,HV SIMPLEX FDA Start: 09-30-2020 CEMENT,HV SIMPLEX FDA Start: 09-30-2020 CRUICIATE RETAIN ING FEMORAL FDA Start: 09-30-2020 TIBIAL BASEPLATE FDA Start: 09-30-2020 TIBIAL BEARING INSERT-CS FDA Start: 09-30-2020 CEMENT,HV SIMPLEX FDA Start: 03-10-2021 CEMENT,HV SIMPLEX FDA Start: 03-10-2021 Goals Date Patient Goal Desired Activity /State Mental Status Date Assessment Result Facility 07-15-2023 Cognitive function Voice/Name [facility] Work Phone: Procedure note 07-15-2023 Note Date & Type Note Facility 07-15-2023 Procedure note [facility] Procedure note 07-15-2023 Note Date & Type Note Facility 07-15-2023 Procedure note [facility] History and physical note 07-15-2023 Note Date & Type Note Facility 07-15-2023 History and physi kin note Note Date/Time July 15, 2023 8:51am [facility] Medical Records Department [address] [place] [address] History & Physical Exam 07/15/23 0850 MR#: [id number] Acct: [id number] Name: JOB RUGGIERO Rep #:[id number] 3 : 1940 82 From: Parmjit Peoples MD PCP: Edie Pelletier, DO Status:REG S DC Location: [place] [address] History and Physical Date of Admission: 07/15/23 Visit Reasons: 6 YR COLONOSCOPY Chief Complaint: 5 Year F/U C-Scope 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 Required: No Is patient in pain?: No Allergies No Known Allergies Allergy (Verified 05/16/23 08:07) Medications hydrochlorothiazide 25 mg tablet 25 mg PO DAILY 05/24/18 [History Confirmed 05/16/23] amlodipine 5 mg-benazepril 10 mg capsule 1 cap PO DAILY BP 08/30/19 [History Confirmed 05/16/23] apple cider vinegar 600 mg capsule 1 tab PO DAILY 09/10/20 [History Confirmed 05/16/23] calcium carbonate 600 mg-vitamin D3 12.5 mcg (500 unit) capsule (Calcium 600 with Vitamin D3) 1 cap PO DAILY 09/10/20 [History Confirmed 05/16/23] vitamins A,C,Q-konj-jdnewt 4,296 mcg-226 mg-90 mg capsule (PreserVision AREDS) 1cap PO BID 09/10/20 [History Confirmed 05/16/23] biotin 1 mg tablet 1 mg PO DAILY 09/16/20 [History Confirmed 05/16/23] polyvinyl alcohol-povidone (PF) 1.4 %-0.6 % eye drops in a dropperette (Refresh Classic (PF)) 1 ea OP BID 09/16/20 [History Confirmed 05/16/23] duloxetine 60 mg capsule,delayed release 60 mg PO BID 02/24/21 [History Confirmed 05/16/23] levothyroxine 75 mcg tablet 75 mcg PO DAILY 02/24/21 [History Confirmed 05/16/23] acetaminophen 500 mg tablet 1,000 mg (2 x 500 mg) PO Q6H PRN PRN pain #100 tabs 03/11/21 [Rx Confirmed 05/16/23] aspirin 81 mg tablet,delayed release (Julien Low Dose Aspirin) 81 mg PO BID #60 tabs 03/11/21 [Rx Confirmed 05/16/23] temazepam 15 mg capsule ea PO 04/20/21 [History Confirmed 05/16/23] PFSH Medical History (Updated 05/16/23 @ 08:05 by Yelitza Pacheco) Actinic keratosis Alcohol use Anxiety Arthritis Bladder cancer Essential hypertension History of pain when walking Hypothyroidism Left knee DJD Migraine headache Non-smoker Osteoarthritis of knees, bilateral Personal history of colonic polyps Restless legs Right bundle branch block (RBBB) Screening for intestinal cancer Thyroid disease Type 2 diabetes mellitus Wears contact lenses Surgical History (Updated 03/22/22 @ 09:31 by Shira Cabral) H/O lumpectomy H/O oophorectomy History of bladder surgery History of carpal tunnel release History of total right knee replacement Hx of cataract extraction Family History Father CVA (cerebral vascular accident) Heart diseaseMother Gallbladder cancerBrother CVA (cerebral vascular accident) Social History household members: spouse housing: house Smoking Status: Never smoker alcohol intake: never details: occasionally substance use type: does not use caffeine: Yes what type of physical activity do you participate in: none seatbelt use: always do you feel safe at home: Yes additional social history: -Tobi HPI HPI HPI: 82-year-old female. I have most recently assisted her May 30, 2018. That point I performed a colonoscopy for her. Hemorrhoids and multiple diverticula identified. A 3 mm polyp was found in the ascending colon. This was removed and pathology demonstrated a tubular adenoma. The patient presents back now for5-year follow-up. Most recent surgical intervention suggest that Dr. Duncan Bella performed a left total knee arthroplasty for her on March 10, 2021 Her health has been steady. No bright red blood per rectum or melena. No abdominal pain. No unexpected weight loss. No family history of colon cancer. She denies DVT. She is not any anticoagulant. She does not participate in any particular routine exercise so we have encouraged that. ROS General General: No weight change, appetite, fatigue, colon cancer, breast cancer or weakness HEENT HEENT: No difficulty swallowing, eye injury, eye surgery, swollen glands or hoarseness Endo Endocrine: Yes thyroid disease; No diabetes mellitus, thyroid cancer, Hair loss, heat intolerance or cold intolerance Skin Skin: No rash or changing moles Breast Breast: No left breast lump, right breast lump, nipple discharge, breast pain, abnormal mammogram, abnormal US or breast enlargement Musc Musculoskeletal: Yes arthritis; No back problems, rheumatoid arthritis, gout or joint pain Cardio Cardiovascular: Yes high blood pressure; No murmur, pacemaker, heart disease, atrial fibrillation, heart attack, heart stent, palpitations, shortness of breat with exertion or chest pain Psych Psychiatric: Yes anxiety; No depression or hearing voices Resp Respiratory: No shortness of breath, No sleep apnea, No cough, No COPD, No asthma, No emphysema and No wheezing Gastro Gastrointestinal: No abdominal pain, No nausea or vomiting, No diarrhea, No constipation, No blood in stool, No acid reflux, No hemorrhoids, No ulcers, No gallbladder problem and No black,tarry stools Noble Hematologic: No blood thinners, No blood disorders, No bleeding, No anemia and No blood clots Neuro Neurologic: No system reviewed and no additional complaints, except as documented, No as per HPI, No abnormal gait, No abnormal hearing, No abnormal movements, No abnormal speech, No behavioral changes, No burning sensations, No confusion, No convulsions, No disequilibrium, No dizziness, No localized weakness, No frequent falls, No headache(s), No lack of coordination, No loss ofvision, No memory loss, No numbness, No other visual disturbances, No radicular pain, No restless legs, No sensory deficit, No syncope, No tingling, No tremor(s), No weakness and No other Exam Const General: cooperative, comfortable and no acute distress Nutritional Appearance: obese HENMT Head: normal to inspection Eyes General: appearance normal, both eyes and all related structures Neck Neck: normal visual inspection Chest Chest palpation & inspection: normal inspection of the chest Resp Effort & Inspection: normal respiratory effort Auscultation: clear to auscultation bilaterally Cardio Rate: regular rate Rhythm: regular rhythm GI Inspection: normal to inspection Palpation: soft and no hepatosplenomegaly Skin General: no rashes or lesions noted Neuro General: patient alert, patient awake and patient oriented x3 Extrem General: no calf tenderness Psych Appearance: grossly normal Assessment and Plan Assessment and Plan (1) Personal history of colonic polyps: Status: Acute Plan: 82-year-old female who is enjoying a good quality of life and has a personal history of colon polyp in the ascending colon. I recommend to her colonoscopy with possible biopsy or polypectomy as indicated. She is aware of the technique, benefit, risk, alternatives. She has had an opportunity ask and havequestions answered. We will schedule and proceed at her discretion. I appreciate the ongoing opportunity of assisting with her surgical care. Copy: Dr. Edie Peoples M.D., F.A.C.S I have examined the patient and the H&P has been reviewed. There are no clinicalchanges since date of exam. Parmjit Peoples M.D., F.A.C.S. 07/15/23 0850 <Electronically signed by Parmjit Peoples MD> Cosigner Signature (if applicable): CC: Dr. Parmjit Peoples MD; Edie Pelletier, DO~ Signed ADDENDUM by Dr. Parmjit Peoples MD on 07/15/23 at 1004 Addendum Parmjit Peoples M.D., F.A.C.S. 07/15/23 1004<Electronically signed by Parmjit Peoples MD> Cosigner Signature (if applicable): cc: Dr. Parmjit Peoples MD; Edie Pelletier DO ~* Signed [facility] Work Phone: Evaluation note Note Date & Type Note Facility Evaluation note Diagnosis Onset Date S/P total knee arthroplasty acute [facility] Work Phone: Evaluation note Note Date & Type Note Facility Evaluation note No assessment information availa ble [facility] Work Phone: Evaluation note Note Date & Type Note Facility Evaluation note Diagnosis Onset Date Personal history of colonic polyps acute [facility] Work Phone: Evaluation note Note Date & Type Note Facility Evaluation note Diagnosis Fall from bed, initial encounter- Primary Closed head injury, initial encounter Concussion with loss of consciousness of 30 minutes or less, initial encounter Strain of lumbar region, initial encounter documented in this encounter [facility] Discharge instructions Attachments Note Date & Type Note Facility Hospital Discharge instructions The following attachments cannot be sent through Care Everywhere.Back: Strain (Liberian)Acute Concussion (Liberian)Head Injury: Closed: General Info (Liberian)documented in this encounter [facility] Reason for referral (narrative) Note Date & Type Note Facility Reason for referral (narrative) No reason for referral information available [facility] Work Phone: Summary Purpose Family History No Family History Records Found Relationship Condition Age at Onset Recorded Date/T adriana father Cerebrovascular accident (CVA) Unknown Cardiac disease Unknown mother Malignant neoplasm of gallbladder Unknown brother Cerebrovascular accident (CVA) Unknown Advance Directives No Advanced Directives Records Found Advance Directive Response Recorded Date/ Time Living Will Yes March 10 6:06pm Power of Microbiology Technician Yes March 10, 2021 6:06pm Advance Directive Response Recorded Date/ Time Name of Medical Power of Microbiology Technician DAUGHTER/SON July 13, 2023 11:46am Living Will Yes July 13 11:46am Power of Microbiology Technician Yes July 13, 2023 11:46am Chief Complaint and Reason for Visit Chief Complaint LEFT KNEE xray SCREENING Reason for Visit S/P total knee arthr oplasty Chief Complaint SCREENING Chief Complaint SCREENING 5 YR COLONOSCOPY Reason for Visit Personal history of colonic polyps Chief Complaint Admit Date RIGHT KNEE January 14, 2025 12:4 6pm room 1 January 14, 2025 1:09 pm Additional Source Comments INFORMATION SOURCE (unrecogn ized section and content) DATE CREATED AUTHOR 12/28/2017 [facility] DATE CREATED AUTHOR AUTHOR'S ORGANIZ ATION 10/02/2023 [facility] DATE CREATED AUTHOR AUTHOR'S ORGANIZ ATION 10/07/2023 [facility] DATE CREATED AUTHOR AUTHOR'S ORGANIZ ATION 01/15/2025 [facility] Goals (unrecognized section and content) Goals may be documented in a n alternate sectionGoals may be documented in an alternate sectionGoals may be documented in an alternate sectionGoals may be documented in an alternate sectionGoals may be documented in an alternate sectionGoals may be documented in an alternate section Care Teams (unrecognized sec tion and content) Team Status: Active Member Role Status Dates Dr. Jason Morton MD Family Provider Active Edie Pelletier DO Primary Care Provider Active Team Status: Inactive Member Role Status Dates Edie Pelletier DO Primary Care Provider, Attending Provider Active Team Status: Inactive Member Role Status Dates Edie Pelletier DO Primary Care Provi liang, Attending Provider, Referring Provider Active Team Status: Inactive Member Role Status Dates Edie Pelletier DO Primary Care Provider, Referring Provider Active Dr. Parmjit Peoples MD Attending Provider Active Team Status: Active Member Role Status Dates Edie Pelletier DO Primary Care Provider, Referring Provider Active Dr. Parmjit Peoples MD Attending Provider, Other Prov ider Active Team Status: Active Member Role/Relationship Status Dates Dr. Jason Morton MD Family Provider Active Casandra Ordoñez MD Primary Care Provider Active Team Status: Active Member Role/Relationship Status Dates Casandra Ordoñez MD Primary Care Provider Active St art: January 14, 2025 Casandra Ordoñez MD Referring Provider Active Start : January 14, 2025 Dr. Duncan Castro DO Attending Provider Active Start: January 14, 2025 Team Status: Inactive Member Role/Relationship Status Dates Casandra Ordoñez MD Primary Care Provider Active St art: January 14, 2025 End: January 14, 2025 Dr. Carlos Knight MD Attending Provider Active S tart: January 14, 2025 End: January 14, 2025 Team Status: Inactive Member Role/Relationship Status Dates Casandra Ordoñez MD Primary Care Provider Active St art: January 14, 2025 End: January 14, 2025 Casandra Ordoñez MD Referring Provider Active Start : January 14, 2025 End: January 14, 2025 Dr. Duncan Castro DO Attending Provider Active Start: January 14, 2025 End: January 14, 2025 Reason for Visit (unrecogniz ed section and content) Reason Comments Fall Arrived in C collar. Hit back of head, possible LOC, no blood thinners FOR RECORDS PERTAINING TO PATIENTS WHO ARE [...] BE BASED ON THE PRIMARY CLINICAL RECORDS. [employer] provides no warranty or guarantee of the accuracy or completeness of information in this document.
== END | disposition home or self-care (01) ==
LOC: MFPLAB 11:32
PROVIDERS: PCP Family Medicine; Visit Provider Family Medicine
DX: Z13.1 Encounter for screening for diabetes mellitus (principal); I10 Essential (primary) hypertension; E55.9 Vitamin D deficiency, unspecified; E03.9 Hypothyroidism, unspecified
CPT/HCPCS: 80053; 80061; 82306; 82607; 83036; 84443; 85027

== ENCOUNTER 2025-06-03 09:00 | Outpatient (RCR) | payer MEDICARE, OTHER, SELFPAY ==
--- NOTE | 2025-05-08 14:33 | HP.PTEVAL_ITS ---
Patient's Visit Information Visit Information Visit Information: JOB RUGGIERO is a 84 year old F referred to Physical Therapy by Dr. Duncan Castro DO with a diagnosis of R HIP PAIN. Date of Evaluation: 05/08/25 Physical Therapist: Cherelle Lion PT, Cert MDT Visit Plan Frequency: 2x /Week Duration: 4-6 Weeks Plan: FOCUS ON HIP AND CORE STABILITY EX'S. CASSI LE ROM AND STRETCHING WELL. INST IN PROPER POSTURE CONTROL AND HEALTHY BACK HABITS. HEP INST. MODALITIES NEEDED FOR R HIP AND LOW BACK PAIN AND INFLAMMATION NEEDED. Subjective Subjective: Work/Leisure: RETIRED Present symptoms: LOW BACK, R HIP, R GROIN AND R KNEE PAIN. PATIENT REPORTS HER PAIN IS A LOT BETTER SINCE STARTING THE ANTI-INFLAMMATORIES ABOUT A WK AGO. NO LE NUMBNESS OR TINGLING. Present since: A COUPLE OF MONTHS Pain Scale: WORST 2/10, LEAST 1/10 Currently: 2/10 Is it getting better, worse or staying the same: GETTING BETTER Commenced as a result of: NO APPARENT REASON Symptoms at onset: PAIN OUTSIDE OF R HIP Worse: R SDLY AND STANDING, WALKING TO THE MAILBOX Better: ANTI-INFLAMMATORY, [place] PM AT NIGHT Disturbed sleep: NO Previous history/Previous treatment: NO R HIP OR BACK SX OR INJECTIONS. R TKR. Treatment this episode: ANTI-INFLAMMATORY Gait: NO RECENT FALLS. NO AD'S Bowel or Bladder Dysfunction: NO Accidents: NO Unexplained weight loss: NO Imaging: PER DR. CASTRO'S RECENT REPORT: R HIP X-RAY SHOWS WELL PRESERVED R HIP JT SPACE. LUMBAR X-RAY SHOWS DDD AND SPONDYLOSIS. POSSIBLE DX OF INFLAMM OF HIP FLEXOR TENDON. MAY NEED MRI IF DOES NOT RESPOND TO PT AND ANTI- INFLAMMATORY. PMH/Recent major surgery: Lesion of face Diabetes Low iron Leg cramps History of stress test Cardiology follow-up encounter Personal history of colonic polyps Hypothyroidism Right bundle branch block (RBBB) Essential hypertension Anxiety Alcohol use Thyroid disease Arthritis Restless legs Migraine headache Non-smoker Left knee DJD Osteoarthritis of knees, bilateral Actinic keratosis Bladder cancer Type 2 diabetes mellitus Screening for intestinal cancer Hx of right cataract extraction Hx of left cataract extraction Hx of colonoscopy Hx of total knee arthroplasty Hx of cataract extraction H/O oophorectomy History of total right knee replacement History of carpal tunnel release History of bladder surgery H/O lumpectomy Objective Objective: Sitting/Standing Posture: DECREASED LORDOSIS. NO RELEVANT LATERAL LUMBAR SHIFT. Active Correction of posture: INCREASES LBP, NE ON LE PAIN. RESPONDS WELL TO PASSIVE CORRECTION OF SITTING POSTURE IN CLINIC. Other Observations: INDEP GAIT AND TRANSFERS. LE LEG CRAMPS EASILY PROVOKED IN SUPINE LYING. Sensory deficit: CASSI LE LIGHT TOUCH SENSATION GROSSLY INTACT AND SYMMETRICAL ROM deficit: R KNEE 18-0-115 DEG FLEX. R HIP 100 DEG FLEX, -10 DEG EXT, 10 DEG IR AND 55 DEG ER. PATIENT DENIES PAIN WITH LE ROM TESTING TODAY. Motor deficit: R HIP 4-/5, KNEE 4/5, ANKLE 4/5. L HIP 4/5, KNEE 4/5, ANKLE 4/5. Dural Signs: NEGATIVE CASSI LE'S. Lumbar mvmt loss: flex - NIL ext - DINA R SG - DINA L SG - DINA LUMBAR EXT PROVOKES LBP - NW. Core strength: FAIR TREATMENT: DX AND NEUROMUSCULAR REEDUCATION - RETRAINING OF MVMT AND POSTURE FOR SITTING. DURING TREATMENT PATINT REPORTS/REALIZED SHE HAS BEEN SITTING SIDEWAYS IN HER RECLINER TO GET BETTER LIGHTING. Balance/Special Test Scores Lower Extremity Functional Score: 55 Goals Goal 1:: DECREASE C/O BACK AND R LE PAIN BY AT LEAST 80% TO EASE ADL'S. Goal Time Frame: 4-6 Weeks Goal 2:: IMPROVE STANDING AND WALKING FUNCTION Goal Time Frame: 4-6 Weeks Goal 3:: INSTRUCT IN PROPHYLAXIS Goal Time Frame: 4-6 Weeks Rehabilitation Potential Physical Therapy Diagnosis: CORE AND LE STIFFNESS AND WEAKNESS Rehabilitation Potential: Good Anticipated Interventions Patient/Client Instruction: Educate patient on: Condition, Plan of Care and Risk Factors For the Purpose of:: To improve self management Therapeutic Exercise to Include: Strength training, Balance training, Body mechanics, Postural training, Flexibilty training, Neuromotor development and Dynamic Lumbar Stabilization For the Purpose of:: To decrease pain, To increase ROM, To improve muscle performance and motor function, To increase tolerance to activity/condition/position, To improve ability of physical actions for home/community/work/leisure, To improve gait and locomotor functions, To increase flexibility/ROM and To improve self management Cryotherapy (ice pack, ice massage): Yes Thermo therapy (hot pack): Yes Ultrasound (thermal/non thermal): Yes For the Purpose of:: To decrease pain, To decrease swelling/inflammation and To improve nutrient delivery to tissue Text: Thank you for the opportunity to evaluate your patient. For Medicare and Medicare HMO plans, please review the plan of care and approve it. It will need to be FAXED BACK to us at [phone] for Medicare purposes. For Medicare only, by signing this I certify the plan of care. Please let me know if there are questions or concerns regarding this plan of care. Physician Signature: Date:
--- NOTE | 2025-06-03 09:50 | HP.PTDCSUM ---
Discharge Summary D/C summary: It has been my pleasure to treat JOB RUGGIERO referred by Dr. Duncan Castro DO, with the diagnosis of R HIP PAIN for a total of 6 visit(s). Discharge Date: 06/03/25 Please see the following information for a summary of their discharge status. Subjective Subjective: PATIENT REPORTS SHE HAS BEEN PRETTY BUSY WITH THANKSGIVING AND TAKING CARE OF HER DAUGHTER SINCE LAST VISIT AND THE PAIN HASN'T COME BACK. JUST HAD A TWINGE OF PAIN IN HER R KNEE AND A LITTLE LBP WHICH SHE HAS HAD IN THE PAST. Overall Improvement % Improvement: 95 Objective Objective/Function: PATIENT WAS SEEN TODAY FOR RE-ASSESSMENT OF PROGRESS TOWARD THE SET PT GOALS AND THE NEED FOR FURTHER PHYSICAL THERAPY VS READINESS FOR DISCHARGE. UPON EXAM TODAY ALL PT GOALS HAVE BEEN MET AND PATIENT IS HAPPY WITH HER HEP AND PROGRESS. SHE FEELS READY FOR DISCHARGE AND STATES SHE PLANS TO CONTINUE HER EXERCISES AND WILL FOLLOW UP WITH DR. CASTRO NEEDED BUT DOESN'T FEEL SHE NEEDS ANYTHING ELSE AT THIS TIME. Goals Goal 1:: DECREASE C/O BACK AND R LE PAIN BY AT LEAST 80% TO EASE ADL'S. Goal Progress: Goal Met Goal 2:: IMPROVE STANDING AND WALKING FUNCTION Goal Progress: Goal Met Goal 3:: INSTRUCT IN PROPHYLAXIS Goal Progress: Goal Met Plan Plan: D/C TO INDEP EX. PATIENT AGREEABLE. D/C Information d/c sentence: If there are questions or concerns regarding this patient's physical therapy, please feel free to call me at [phone]. Thank you for the referral of this patient. Sincerely, Cherelle Lion, PT, Cert MDT Balance/Gait/Functional tests Balance/Special Test Scores Lower Extremity Functional Score: 59 Improvement % Improvement: 95
== END 2025-06-03 14:54 | disposition home or self-care (01) ==
LOC: PT 09:00
PROVIDERS: PCP Family Medicine; Referring Provider Orthopaedic Surgery; Visit Provider Orthopaedic Surgery
DX: M25.551 Pain in right hip (principal)
CPT/HCPCS: 97112; 97162; 97530

== ENCOUNTER → 2025-06-07 | Outpatient (CLI) | payer MEDICARE, OTHER, SELFPAY ==
--- NOTE | 2025-06-07 10:08 | BI_ITS ---
EXAM: SCRN MAMM (CAD)W/GUERA BILAT DATE: 06/07/2025 CLINICAL HISTORY: F, Age 84 y/o , ANNUAL TECHNIQUE: Procedure Code: [id number] Modality: MG Procedure: SCRN MAMM (CAD)W/GUERA BILAT COMPARISON: Prior exam(s) dated 05/22/2024, 04/29/2023, 03/30/2020. FINDINGS: TISSUE DENSITY: The breasts are almost entirely fatty. Bilateral Breast Mammographic Findings: No significant masses, calcifications or other abnormalities are identified. BI/SCRN MAMM (CAD)W/GUERA BILAT IMPRESSION: There is no mammographic evidence of malignancy. OVERALL FINAL ASSESSMENT BI-RADS 1: NEGATIVE. RECOMMENDATION: Routine annual follow-up in 1 Year Additional Recommendation none A letter with findings and recommendations will be mailed to the patient. Reading Location: [id number]
== END | disposition home or self-care (01) ==
LOC: OPBI 10:05
PROVIDERS: PCP Family Medicine; Referring Provider Family Medicine; Visit Provider Family Medicine
DX: Z12.31 Encounter for screening mammogram for malignant neoplasm of breast (principal)
CPT/HCPCS: 77063; 77067